=== PATIENT | male | born 1940 | race Caucasian/White ===

== ENCOUNTER → 2018-01-03 07:11 | Outpatient (CLI) | payer OTHER, SELFPAY ==
[2018-01-03 07:17] LABS: Bacteria Urine None Seen; RBC Urine None Seen (0-5/HPF); WBC Urine None Seen (0-5/HPF)
[2018-01-03 08:41] LABS: Add Manual Diff / Slide Review NO; Basophils Percent Auto 0.5 % (0-2); Eosinophils Percent Auto 4.1 % (2-4); Hemoglobin 14.4 g/dL (13.5-17.5); Lymphocytes Percent Auto 26.1 % (25-40); Mean Corpuscular HGB Conc 33.5 % (30-36); Mean Corpuscular Hemoglobin 31.6 PG (26-34); Mean Corpuscular Volume 94.3 fL (80-100); Monocytes Percent Auto 9.3 % (3-14); Neutrophils Absolute Auto 4700 /uL (3000-5900); Platelet Count 189 X10^3/uL (150-400); Red Blood Cell Count 4.56 X10^6/uL (4.5-5.9); Red Cell Distribution Width 13.3 % (11.6-14.8); White Blood Cell Count 7.8 X10^3/uL (4.5-11.0)
[2018-01-03 08:52] LABS: Alanine Aminotransferase 20 IU/L (21-72); Albumin Globulin Ratio 1.4 (1.0-2.8); Alkaline Phosphatase 58 U/L (38-126); Aspartate Aminotransferase 14 IU/L (17-59); Bilirubin Total 0.5 mg/dL (0.2-1.3); Blood Urea Nitrogen 19 mg/dL (9-20); Calcium 9.5 mg/dL (8.4-10.2); Carbon Dioxide 35 mmol/L (22-32); Chloride 102 mmol/L (98-107); Cholesterol 152 mg/dL (140-199); Estimated Glomerular Filt Rate > 60.0 mL/min (>60); Globulin 2.9 g/dL (1.7-4.1); Glucose 99 mg/dL (80-110); HDL Cholesterol 54 mg/dL (40-60); HEMOLYSIS < 15 (0-50); LDL Cholesterol Calculated 71 mg/dL (<100); Potassium 4.3 mmol/L (3.4-5.1); Sodium 142 mmol/L (137-145); Total Protein 6.9 g/dL (6.3-8.2); Triglycerides 133 mg/dL (35-150)
[2018-01-03 09:08] LABS: Hemoglobin A1C% w Est Avg Glu 6.2 % (4.0-6.0)
[2018-01-03 09:21] LABS: Appearance Urine UA CLEAR; Bilirubin Urine UA NEGATIVE (NEGATIVE); Color Urine UA YELLOW; Glucose Urine UA NEGATIVE (Normal); Ketones Urine UA NEGATIVE (NEGATIVE); Leukocyte Esterase Urine UA NEGATIVE (NEGATIVE); Nitrite Urine UA Negative (Negative); Occult Blood Urine UA NEGATIVE (Negative); Protein Urine UA NEGATIVE (Negative); Urobilinogen Urine UA 0.2 E.U./dL (0.2); pH Urine UA 6.5 (4.5-8.0)
[2018-01-03 09:27] LABS: Culture Indicated Urine Cult Not Indicated; Urine Comments Microscopic Normal
== END ==
PROVIDERS: PCP Family Medicine; Visit Provider Family Medicine
DX: E11.9 Type 2 diabetes mellitus without complications (principal); E78.5 Hyperlipidemia, unspecified
CPT/HCPCS: 36415; 80053; 80061; 81001; 83036; 84443; 85025

== ENCOUNTER → 2018-10-25 15:54 | Outpatient (CLI) | payer MEDICARE, SELFPAY ==
--- NOTE | 2018-10-25 | DI.ECHO.S_ITS ---
[place] [facility]---------+ [facility] +---------+ : : [address] : : : [place] : : : : [id number] : : : : Phone: [phone] Echocardiogram Report + + :Name: MOIRA TOVAR Study Date: 10/25/2018 Height: 68 in : :[facility] Exam Location: IS Weight: 181 lb : : Gender: Male BSA: 2.0 m2 : :: 1940 Age: 78 yrs BP: 135/53 mmHg: :Reason For Study: DIZZINESS, GIDDINESS : : Performed By: Daniel Harvey : :Referring: ALEKS PEREZ : + + Interpretation Summary Overall left ventricular systolic function is preserved with the ejection fraction visually estimated to be 55-60%. There is moderate hypokinesis in the mid posterior wall that is unchanged from the previous exam and no other wall motion abnormalities. Diastolic parameters suggest a pseudonormalization pattern, consistent with probable elevated filling pressures. There has been no significant change since the previous study. The right ventricle is mildly dilated and right ventricular systolic function is at the lower limits of normal but appears unchanged compared to the previous study. The right ventricular systolic pressure is estimated to be at least 31 mmHg based on an estimated right atrial pressure of 3 mm Hg, and is likely similar compared to the previous study. The left atrium is severely dilated and has mildly increased in size since the prior echo exam. There is mild tricuspid regurgitation and mild pulmonic regurgitation that are unchanged compared to the previous study. There is a well-seated bioprosthetic aortic valve with gradients that are within the normal range for this type of valve with a peak aortic velocity of 2.4 m/s which is identical compared to the previous study. Procedure: A two-dimensional transthoracic echocardiogram with color flow and Doppler was performed. The study quality was technically adequate. Comparison is made with the echocardiogram of 11/08/16. The patient was in normal sinus rhythm during the exam. Left Ventricle: The left ventricle is normal in size. There is normal left ventricular wall thickness. Overall left ventricular systolic function is preserved. The ejection fraction is estimated to be 55-60%. There is moderate hypokinesis in the mid posterior wall that is unchanged from the previous exam and no other wall motion abnormalities. Diastolic parameters suggest a pseudonormalization pattern, consistent with probable elevated filling pressures. There has been no significant change since the previous study. Right Ventricle: The right ventricle is mildly dilated. Right ventricular systolic function is at the lower limits of normal. This is unchanged compared to the previous study. Atria: The left atrium is severely dilated. The left atrium has mildly increased in size since the prior echo exam. Right atrial size is normal. The interatrial septum is intact with no evidence for an atrial septal defect. Mitral Valve: There is mild to moderate mitral annular calcification. There is trace mitral regurgitation. This is unchanged compared to the previous study. Aortic Valve: The aortic valve is not well visualized. There is a bioprosthetic aortic valve. The prosthetic aortic valve is well-seated. The gradients through the prosthetic aortic valve are within the normal range for this type of valve. The peak aortic velocity is 2.4 m/sec. This is identical compared to the previous study. The calculated aortic valve area is 1.4 cm2. No aortic regurgitation is present. Tricuspid Valve: The tricuspid valve is normal in structure and function. There is mild tricuspid regurgitation. This is unchanged compared to the previous study. The right ventricular systolic pressure is estimated to be at least 31 mmHg based on an estimated right atrial pressure of 3 mm Hg. This is similar compared to the previous study. Pulmonic Valve: The pulmonic valve is normal in structure and function. There is mild pulmonic regurgitation. This is unchanged compared to the previous study. Great Vessels: The aortic root is normal size. The ascending aorta could not be visualized. The aortic arch is normal in size. The pulmonary artery is normal size. The IVC is of normal diameter and collapses greater than 50% with a sniff. This suggests a low right atrial pressure of 3 mm Hg. Pericardium/ Pleura There is no pericardial effusion. There is no pleural effusion. MMode/2D Measurements & Calculations LVIDd: 5.1 cm LVOT diam: 2.0 cm LVIDs: 3.2 cm Ao root diam: 2.6 cm FS: 36.8 % Ao Arch Diam (Prox Trans): 2.9 cm EPSS: 0.45 cm IVSd: 0.96 cm LVPWd: 0.97 cm LV shepherd. diameter/BSA (cm/m^2): 2.6 LV sys. diameter/BSA (cm/m^2): 1.7 LA dimension: 5.4 cm RA long axis: 5.6 cm LA A2 area: 24.3 cm2 RA area: 18.6 cm2 LA A4 area: 27.6 cm2 RA vol: 52.8 ml LA length (vol): 5.8 cm RA : 26.9 ml/m2 LA vol: 98.0 ml IVC diam: 1.7 cm LA vol index: 50.0 ml/m2 RVD1 (basal): 4.1 cm RVD2 (mid): 4.4 cm Doppler Measurements & Calculations Ao V2 max: 238.7 cm/sec LVOT Max Raffy: 109.0 cm/sec Ao V2 mean: 180.6 cm/sec LV V1 max P.8 mmHg Ao max P.8 mmHg LV V1 VTI: 32.2 cm Ao mean P.3 mmHg CHRIS(I,D): 1.6 cm2 Ao V2 VTI: 65.4 cm CHRIS(V,D): 1.4 cm2 sev ratio: 0.49 CHRIS indexed to BSA (cm^2/m^2): 0.79 MV E max raffy: 104.9 cm/sec TR max raffy: 265.5 cm/sec MV A max raffy: 103.2 cm/sec TR max P.2 mmHg MV E/A: 1.0 PA V2 max: 87.4 cm/sec Med Peak E' Raffy: 4.6 cm/sec PA V2 mean: 63.5 cm/sec E/E' med: 22.6 PA mean P.7 mmHg Lat Peak E' Raffy: 6.1 cm/sec PA pr(Accel): 25.8 mmHg E/E' lat: 17.2 PA Accel Time: 0.12 sec E/e' average: 19.9 MV dec time: 0.24 sec SV(LVOT): 101.6 ml Reading Physician:HORTENCIA
== END ==
PROVIDERS: PCP Internal Medicine; Visit Provider Internal Medicine
DX: I07.1 Rheumatic tricuspid insufficiency (principal); I37.1 Nonrheumatic pulmonary valve insufficiency; R42 Dizziness and giddiness; R00.1 Bradycardia, unspecified; Z95.2 Presence of prosthetic heart valve
CPT/HCPCS: 93306

== ENCOUNTER → 2019-02-06 10:18 | Outpatient (CLI) | payer MEDICARE, SELFPAY ==
[2019-02-06 11:29] LABS: Hemoglobin A1C% w Est Avg Glu 6.1 % (4.0-6.0)
== END ==
PROVIDERS: PCP Internal Medicine; Visit Provider Internal Medicine
DX: E11.9 Type 2 diabetes mellitus without complications (principal)
CPT/HCPCS: 36415; 83036

== ENCOUNTER → 2019-08-14 | Outpatient (CLI) | payer MEDICARE, SELFPAY | PROVIDERS: PCP Internal Medicine; Referring Provider Internal Medicine; Visit Provider Internal Medicine ==

== ENCOUNTER → 2020-03-23 08:16 | Outpatient (CLI) | payer MEDICARE, SELFPAY ==
[2020-03-23 09:22] LABS: Hemoglobin A1C% w Est Avg Glu 6.7 % (4.0-6.0)
[2020-03-23 09:29] LABS: Alanine Aminotransferase 14 IU/L (<50); Albumin 3.9 g/dL (3.5-5.0); Albumin Globulin Ratio 1.2 (1.0-2.8); Alkaline Phosphatase 69 U/L (38-126); Aspartate Aminotransferase 20 IU/L (17-59); Bilirubin Total 0.6 mg/dL (0.2-1.3); Blood Urea Nitrogen 18 mg/dL (9-20); Calcium 9.1 mg/dL (8.4-10.2); Carbon Dioxide 31 mmol/L (22-32); Chloride 103 mmol/L (98-107); Cholesterol 152 mg/dL (140-199); Estimated Glomerular Filt Rate > 60.0 mL/min (>60); Globulin 3.2 g/dL (1.7-4.1); Glucose 125 mg/dL (80-110); HDL Cholesterol 52 mg/dL (40-60); HEMOLYSIS < 15 (0-50); LDL Cholesterol Calculated 78 mg/dL (<100); Sodium 138 mmol/L (137-145); Total Protein 7.1 g/dL (6.3-8.2); Triglycerides 108 mg/dL (35-150)
== END ==
PROVIDERS: PCP Internal Medicine; Referring Provider Internal Medicine; Visit Provider Internal Medicine
DX: E11.9 Type 2 diabetes mellitus without complications (principal); E78.2 Mixed hyperlipidemia; I25.10 Atherosclerotic heart disease of native coronary artery without angina pectoris
CPT/HCPCS: 36415; 80053; 80061; 83036

== ENCOUNTER → 2020-11-06 07:04 | Outpatient (CLI) | payer OTHER, SELFPAY ==
[2020-11-06 08:19] LABS: Hemoglobin A1C% w Est Avg Glu 6.6 % (4.0-6.0)
[2020-11-06 08:57] LABS: Alanine Aminotransferase 12 IU/L (<50); Albumin 3.7 g/dL (3.5-5.0); Albumin Globulin Ratio 1.4 (1.0-2.8); Alkaline Phosphatase 73 U/L (38-126); Aspartate Aminotransferase 21 IU/L (17-59); BUN Creatinine Ratio 15.7 (6-22); Bilirubin Total 0.5 mg/dL (0.2-1.3); Blood Urea Nitrogen 17 mg/dL (9-20); Calcium 9.7 mg/dL (8.4-10.2); Carbon Dioxide 28 mmol/L (22-32); Chloride 105 mmol/L (98-107); Cholesterol 147 mg/dL (140-199); Estimated Glomerular Filt Rate > 60.0 mL/min (>60); Globulin 2.7 g/dL (1.7-4.1); Glucose 116 mg/dL (80-110); HDL Cholesterol 55 mg/dL (40-60); HEMOLYSIS < 15 (0-50); LDL Cholesterol Calculated 73 mg/dL (<100); Potassium 4.5 mmol/L (3.4-5.1); Sodium 138 mmol/L (137-145); Total Protein 6.4 g/dL (6.3-8.2); Triglycerides 96 mg/dL (35-150)
== END ==
PROVIDERS: PCP Internal Medicine; Referring Provider Internal Medicine; Visit Provider Internal Medicine
DX: E11.9 Type 2 diabetes mellitus without complications (principal); E78.2 Mixed hyperlipidemia; I25.10 Atherosclerotic heart disease of native coronary artery without angina pectoris
CPT/HCPCS: 36415; 80053; 80061; 83036

== ENCOUNTER → 2021-03-20 14:25 | Outpatient (CLI) | payer OTHER, SELFPAY ==
[2021-03-20 15:18] LABS: COVID19 -Nasal RAPID POSITIVE (Negative)
== END ==
PROVIDERS: PCP Internal Medicine; Visit Provider Physician Assistant
DX: U07.1 COVID-19 (principal)
CPT/HCPCS: 87635

== ENCOUNTER 2021-03-25 19:55 | Inpatient (IN) | payer OTHER, SELFPAY ==
[2021-03-25] VITALS (9 sets, daily range): BP systolic 137–160; BP diastolic 62–72; PULSE 52–61; RESP 18–26; TEMP 36.6–37.4; O2SAT 92–99; BMI 28.8
[2021-03-25 20:07] LABS: Add Manual Diff / Slide Review NO; Basophils Absolute Auto 0 /uL (0-100); Basophils Percent Auto 0.3 % (0-2); Eosinophils Absolute Auto 0 /uL (0-450); Hematocrit 44.1 % (41-53); Hemoglobin 14.4 g/dL (13.5-17.5); Lymphocytes Absolute Auto 1800 /uL (1100-4500); Lymphocytes Percent Auto 27.2 % (25-40); Mean Corpuscular HGB Conc 32.8 % (30-36); Mean Corpuscular Volume 94.7 fL (80-100); Monocytes Absolute Auto 1000 /uL (0-900); Monocytes Percent Auto 14.9 % (3-14); Neutrophils Absolute Auto 3800 /uL (1500-7000); Neutrophils Percent Auto 57.6 % (50-75); Platelet Count 129 X10^3/uL (150-400); Red Blood Cell Count 4.66 X10^6/uL (4.5-5.9); Red Cell Distribution Width 13.3 % (11.6-14.8); White Blood Cell Count 6.5 X10^3/uL (4.5-11.0)
--- NOTE | 2021-03-25 20:24 | DI.RAD.S_ITS ---
PROCEDURE: XR CHEST 1V INDICATIONS: syncope, short of breath, hypoxemia, COVID+ TECHNIQUE: One view of the chest was acquired. COMPARISON: [facility], , CHEST 2 VIEW, 11/03/2016, 10:54. FINDINGS: Surgical changes and devices: Sternotomy wires and cardiac leadless pacer. Lungs and pleura: Scattered subsegmental atelectasis and/or scarring. No focal consolidation. No pleural effusion or pneumothorax. Mediastinum: Mediastinal contours appear normal. Heart size is normal. Bones and chest wall: No suspicious bony lesions. Overlying soft tissues appear unremarkable. IMPRESSION: Scattered subsegmental atelectasis and/or scarring. No focal consolidation. Dictated by: Jose Harris M.D. on 03/25/2021 at 21:13 Approved by: Jose Harris M.D. on 03/25/2021 at 21:14
[2021-03-25 20:25] LABS: HEMOLYSIS 19 (0-50)
[2021-03-25 20:26] LABS: Alanine Aminotransferase 19 IU/L (<50); Albumin 3.9 g/dL (3.5-5.0); Albumin Globulin Ratio 1.2 (1.0-2.8); Alkaline Phosphatase 57 U/L (38-126); Aspartate Aminotransferase 41 IU/L (17-59); BUN Creatinine Ratio 17.1 (6-22); Bilirubin Total 0.5 mg/dL (0.2-1.3); Blood Urea Nitrogen 19 mg/dL (9-20); Carbon Dioxide 30 mmol/L (22-32); Chloride 96 mmol/L (98-107); Creatine Kinase 71 U/L (55-170); Estimated Glomerular Filt Rate > 60.0 mL/min (>60); Globulin 3.2 g/dL (1.7-4.1); Glucose 147 mg/dL (80-110); Potassium 4.5 mmol/L (3.4-5.1); Sodium 133 mmol/L (137-145); Total Protein 7.1 g/dL (6.3-8.2)
[2021-03-25] MEDS: SODIUM CHLORIDE 0.9% 1,000 ML 1000 ML IV (20:32)
[2021-03-25 20:36] LABS: Troponin I 0.016 ng/mL (0.01-0.034)
[2021-03-25 20:38] LABS: D Dimer 860 ng/mL (<230)
[2021-03-25 20:41] LABS: NT-proBNP (BNP-Adult 18+) 484 pg/mL (<450)
--- NOTE | 2021-03-25 20:43 | ED_ITS ---
HPI - Syncope General Chief Complaint: Syncope Stated Complaint: syncope Time Seen by Provider: 03/25/21 19:59 Source: patient and EMS Mode of arrival: EMS Limitations: no limitations History of Present Illness HPI narrative: 81-year-old male former smoker with history of hypertension, hyperlipidemia and diabetes presents by EMS for evaluation of a syncopal episode this afternoon. He was diagnosed with COVID on March 19 and lives at home with family. He states he has been eating and drinking but admittedly has a decreased appetite. He was walking in the kitchen when he felt dizzy and lightheaded and collapsed to the floor. Feels weak but denies any significant shortness of breath or trouble breathing. On arrival his pulse ox was 86%. Related Data Home Medications Medication Instructions Recorded Confirmed aspirin 81 mg tablet,delayed 81 mg PO QDAY #0 10/12/16 09/21/20 release Previous Rx's Medication Instructions Recorded simvastatin 20 mg tablet 20 mg PO HS #90 tab 05/20/20 tamsulosin 0.4 mg capsule (Flomax) 0.4 mg PO QDAY #90 cap 05/20/20 Accu-Check Glucose Meter #1 ea 06/30/20 Lancets #250 each 06/30/20 metformin 500 mg tablet 500 mg PO BIDCC #180 tab 07/01/20 (Glucophage) blood sugar diagnostic (Accu-Chek #100 ea 07/08/20 Sofía Plus test strp) Allergies Allergy/AdvReac Type Severity Reaction Status Date / Time No Known Drug Allergies Allergy Verified 09/21/20 14:25 Review of Systems Review of Systems Narrative: GENERAL: See HPI HEENT: Denies sinus pain, ear pain, sore throat, difficulty swallowing, dizziness. RESPIRATORY: See HPI CARDIOVASCULAR: Denies chest pain, palpitations, orthopnea, edema, GASTROINTESTINAL: Denies nausea, vomiting, abdominal pain, diarrhea, constipation, melena. : Denies dysuria, frequency, incontinence, hematuria, urinary retention. MUSCULOSKELETAL: denies weakness, joint pain, or bony pain SKIN: Denies rash, skin lesions, or other NEUROLOGIC: Denies weakness, headache, numbness, change in speech, confusion, seizures, incoordination. PSYCHIATRIC: No concerning psychosocial issues. 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 Well-developed patient, in mild distress. HEAD: Atraumatic. Normocephalic. EYES: Pupils equal round and reactive. Extraocular motions intact. No scleral icterus. No injection or drainage. ENT: Dry mucous membranes Nose without bleeding, purulent drainage. Throat without erythema, tonsillar hypertrophy or exudate. Airway patent. NECK: Trachea midline. Non tender CARDIOVASCULAR: Regular rate and rhythm without murmurs, gallops, or rubs. RESPIRATORY: Faint crackles in bilateral bases, no significant respiratory distress GASTROINTESTINAL: Abdomen soft, non-tender, nondistended. EXTREMITIES: No edema or joint tenderness. BACK: Nontender without deformity or crepitance. No flank tenderness. NEURO: AOx3. SKIN: No rash or erythema of visible areas Initial Vital Signs Initial Vital Signs: Vital Signs Temperature 99.3 F 03/25/21 20:00 Pulse Rate 60 03/25/21 20:00 Respiratory Rate 19 03/25/21 20:00 Blood Pressure 147/66 H 03/25/21 20:00 Pulse Oximetry 92 03/25/21 20:00 Course Orders Ordered: ED Orders 03/25/21 19:30 C-Reactive Protein Quant Stat Complete Blood Count AUTO DIFF Stat Comprehensive Metabolic Panel Stat D Dimer Stat Ferritin Stat Lactate Dehydrogenase Stat NT-proBNP (BNP-Adult 18+) Stat Troponin & CK Cardiac Panel Stat 03/25/21 20:00 EKG-12 Lead Stat 03/25/21 20:24 XR chest 1V Stat 03/25/21 20:43 Respiratory Panel (Film Array) Stat 03/25/21 21:25 Lactate (Lactic Acid) Stat Acetaminophen (Acetaminophen 325 Mg Tablet) 650 mg PO Q6HR PRN PRN Reason: Fever/Mild Pain (1-3) Aspirin (Aspirin Ec 81 Mg Tablet) 81 mg PO DAILY [facility] Atorvastatin Calcium (Atorvastatin 20 Mg Tablet) 10 mg PO BEDTIME LIGIA Dexamethasone (Dexamethasone 10 Mg/Ml Vial) 6 mg IV BEDTIME LIGIA Stop: 04/03/21 21:01 Dextrose (Dextrose 50 % In Water 25 Gm/50 Ml Syringe) 25 gm IV PRN PRN PRN Reason: Hypoglycemia Enoxaparin Sodium (Enoxaparin 40 Mg/0.4 Ml Syringe) 40 mg SUBCUT DAILY [facility] Remdesivir 100 mg/ Sodium (Chloride) 250 mls @ 250 mls/hr IV BEDTIME LIGIA Stop: 04/03/21 21:59 Sodium Chloride (Normal Saline 0.9%) 1,000 mls @ 125 mls/hr IV CONT LIGIA Insulin Human Lispro (Insulin Lispro 100 Unit/Ml 3ml Vial) 0 unit SUBCUT ACHS LIGIA; Protocol Metformin HCl (Metformin Hcl 500 Mg Tablet) 500 mg PO BIDWM [facility] Naloxone HCl (Naloxone 0.4 Mg/Ml Vial) 0.2 mg IV Q2MIN PRN PRN Reason: Opiate Reversal Ondansetron HCl (Ondansetron 4 Mg/2 Ml Inj) 4 mg IV Q8HR PRN PRN Reason: Nausea And Vomiting Tamsulosin HCl (Tamsulosin 0.4 Mg Capsule) 0.4 mg PO DAILY [facility] Discontinued Medications Dexamethasone (Dexamethasone 10 Mg/Ml Vial) 6 mg IV NOW ONE Stop: 03/25/21 20:25 Last Admin: 03/25/21 21:11 Dose: 6 mg Documented by: OTILIO Sodium Chloride (Normal Saline 0.9%) 1,000 mls @ 1,000 mls/hr IV BOLUS ONE Stop: 03/25/21 20:58 Last Infusion: 03/25/21 22:05 Dose: 0 mls/hr Documented by: Admin: 03/25/21 20:32 Dose: 1,000 mls/hr Documented by: OTILIO Remdesivir 200 mg/ Sodium (Chloride) 250 mls @ 250 mls/hr IV NOW ONE Stop: 03/25/21 21:23 Last Infusion: 03/25/21 22:27 Dose: 0 mls/hr Documented by: Admin: 03/25/21 21:11 Dose: 250 mls/hr Documented by: OTILIO Vital Signs Vital signs: Vital Signs - 8 hr 03/25/21 20:00 03/25/21 20:04 03/25/21 20:30 Temperature 99.3 F Pulse Rate 60 57 L 58 L Respiratory Rate 19 21 Blood Pressure 147/66 H 147/66 H 137/63 Pulse Oximetry 92 94 96 03/25/21 21:00 Temperature Pulse Rate 58 L Respiratory Rate 21 Blood Pressure 160/72 H Pulse Oximetry 99 MDM - Syncope Lab Data Result diagrams: 03/25/21 19:30 03/25/21 19:30 Labs: Lab Results 03/25/21 03/25/21 03/25/21 Range/Units 19:30 19:30 19:30 WBC 6.5 (4.5-11.0) X10^3/uL RBC 4.66 (4.5-5.9) X10^6/uL Hgb 14.4 (13.5-17.5) g/dL Hct 44.1 (41-53) % MCV 94.7 (80-100) fL MCH 31.0 (26-34) PG MCHC 32.8 (30-36) % RDW 13.3 (11.6-14.8) % Plt Count 129 L (150-400) X10^3/uL Neut % (Auto) 57.6 (50-75) % Lymph % (Auto) 27.2 (25-40) % Hart % (Auto) 14.9 H (3-14) % Eos % (Auto) 0.0 L (2-4) % Baso % (Auto) 0.3 (0-2) % Neut # (Auto) 3800 (5473-3873) /uL Lymph # (Auto) 1800 (8618-1992) /uL Hart # (Auto) 1000 H (0-900) /uL Eos # (Auto) 0 (0-450) /uL Baso # (Auto) 0 (0-100) /uL D-Dimer (<230) ng/mL ABG pH (7.35-7.45) ABG pCO2 (35-45) mmHg ABG pO2 (80-100) mmHg ABG HCO3 (22-26) mmol/L ABG Total CO2 (21-31) mmol/L ABG O2 Saturation (95-100) % ABG Base Excess (-2-2) mmol/L FiO2 Sodium 133 L (137-145) mmol/L Potassium 4.5 (3.4-5.1) mmol/L Chloride 96 L (98-107) mmol/L Carbon Dioxide 30 (22-32) mmol/L BUN 19 (9-20) mg/dL Creatinine 1.11 (0.66-1.25) mg/dL Estimated GFR > 60.0 (>60) mL/min BUN/Creatinine Ratio 17.1 (6-22) Glucose 147 H (80-110) mg/dL Lactate (0.7-2.1) mmol/L Calcium 9.0 (8.4-10.2) mg/dL Ferritin (18-464) ng/mL Total Bilirubin 0.5 (0.2-1.3) mg/dL AST 41 (17-59) IU/L ALT 19 (<50) IU/L Alkaline Phosphatase 57 (38-126) U/L Lactate Dehydrogenase (313-618) U/L Total Creatine Kinase 71 (55-170) U/L CK-MB (CK-2) TNP CK-MB (CK-2) Rel Index TNP Troponin I 0.016 (0.01-0.034) ng/mL C-Reactive Protein (<1.0) mg/dL NT-Pro-B Natriuret Pep 484 H (<450) pg/mL Total Protein 7.1 (6.3-8.2) g/dL Albumin 3.9 (3.5-5.0) g/dL Globulin 3.2 (1.7-4.1) g/dL Albumin/Globulin Ratio 1.2 (1.0-2.8) Chlamy pneumoniae PCR (Not Detect) Adenovirus (PCR) (Not Detect) B. pertussis DNA (PCR) (Not Detecte) B.parapertussis DNA PCR (Not Detecte) Coronavirus OC43 (PCR) (Not Detect) Coronavirus HKU1 (PCR) (Not Detect) Coronavirus 229E (PCR) (Not Detect) SARS-CoV-2 (PCR) (Not Detecte) Coronavirus NL63 (PCR) (Not Detect) Human Metapneumovir PCR (Not Detect) Influenza Type A (PCR) (Not Detect) Influenza Type B (PCR) (Not Detect) M. pneumoniae (PCR) (Not Detect) Parainfluenza 1 (PCR) (Not Detect) Parainfluenza 2 (PCR) (Not Detect) Parainfluenza 3 (PCR) (Not Detect) Parainfluenza 4 (PCR) (Not Detect) RSV (PCR) (Not Detect) Entero/Rhino (PCR) (Not Detect) 03/25/21 03/25/21 03/25/21 Range/Units 19:30 19:30 20:43 WBC (4.5-11.0) X10^3/uL RBC (4.5-5.9) X10^6/uL Hgb (13.5-17.5) g/dL Hct (41-53) % MCV (80-100) fL MCH (26-34) PG MCHC (30-36) % RDW (11.6-14.8) % Plt Count (150-400) X10^3/uL Neut % (Auto) (50-75) % Lymph % (Auto) (25-40) % Hart % (Auto) (3-14) % Eos % (Auto) (2-4) % Baso % (Auto) (0-2) % Neut # (Auto) (7069-9587) /uL Lymph # (Auto) (5628-4541) /uL Hart # (Auto) (0-900) /uL Eos # (Auto) (0-450) /uL Baso # (Auto) (0-100) /uL D-Dimer 860 H (<230) ng/mL ABG pH (7.35-7.45) ABG pCO2 (35-45) mmHg ABG pO2 (80-100) mmHg ABG HCO3 (22-26) mmol/L ABG Total CO2 (21-31) mmol/L ABG O2 Saturation (95-100) % ABG Base Excess (-2-2) mmol/L FiO2 Sodium (137-145) mmol/L Potassium (3.4-5.1) mmol/L Chloride (98-107) mmol/L Carbon Dioxide (22-32) mmol/L BUN (9-20) mg/dL Creatinine (0.66-1.25) mg/dL Estimated GFR (>60) mL/min BUN/Creatinine Ratio (6-22) Glucose (80-110) mg/dL Lactate (0.7-2.1) mmol/L Calcium (8.4-10.2) mg/dL Ferritin 335 (18-464) ng/mL Total Bilirubin (0.2-1.3) mg/dL AST (17-59) IU/L ALT (<50) IU/L Alkaline Phosphatase (38-126) U/L Lactate Dehydrogenase 1056 H (313-618) U/L Total Creatine Kinase (55-170) U/L CK-MB (CK-2) CK-MB (CK-2) Rel Index Troponin I (0.01-0.034) ng/mL C-Reactive Protein 7.1 H (<1.0) mg/dL NT-Pro-B Natriuret Pep (<450) pg/mL Total Protein (6.3-8.2) g/dL Albumin (3.5-5.0) g/dL Globulin (1.7-4.1) g/dL Albumin/Globulin Ratio (1.0-2.8) Chlamy pneumoniae PCR Not detected (Not Detect) Adenovirus (PCR) Not detected (Not Detect) B. pertussis DNA (PCR) Not detected (Not Detecte) B.parapertussis DNA PCR Not detected (Not Detecte) Coronavirus OC43 (PCR) Not detected (Not Detect) Coronavirus HKU1 (PCR) Not detected (Not Detect) Coronavirus 229E (PCR) Not detected (Not Detect) SARS-CoV-2 (PCR) Detected H (Not Detecte) Coronavirus NL63 (PCR) Not detected (Not Detect) Human Metapneumovir PCR Not detected (Not Detect) Influenza Type A (PCR) Not detected (Not Detect) Influenza Type B (PCR) Not detected (Not Detect) M. pneumoniae (PCR) Not detected (Not Detect) Parainfluenza 1 (PCR) Not detected (Not Detect) Parainfluenza 2 (PCR) Not detected (Not Detect) Parainfluenza 3 (PCR) Not detected (Not Detect) Parainfluenza 4 (PCR) Not detected (Not Detect) RSV (PCR) Not detected (Not Detect) Entero/Rhino (PCR) Not detected (Not Detect) 03/25/21 03/25/21 Range/Units 21:22 21:25 WBC (4.5-11.0) X10^3/uL RBC (4.5-5.9) X10^6/uL Hgb (13.5-17.5) g/dL Hct (41-53) % MCV (80-100) fL MCH (26-34) PG MCHC (30-36) % RDW (11.6-14.8) % Plt Count (150-400) X10^3/uL Neut % (Auto) (50-75) % Lymph % (Auto) (25-40) % Hart % (Auto) (3-14) % Eos % (Auto) (2-4) % Baso % (Auto) (0-2) % Neut # (Auto) (8267-6954) /uL Lymph # (Auto) (2617-8443) /uL Hart # (Auto) (0-900) /uL Eos # (Auto) (0-450) /uL Baso # (Auto) (0-100) /uL D-Dimer (<230) ng/mL ABG pH 7.38 (7.35-7.45) ABG pCO2 44.1 (35-45) mmHg ABG pO2 103 H (80-100) mmHg ABG HCO3 26 (22-26) mmol/L ABG Total CO2 27 (21-31) mmol/L ABG O2 Saturation 98 (95-100) % ABG Base Excess 1.0 (-2-2) mmol/L FiO2 24 Sodium (137-145) mmol/L Potassium (3.4-5.1) mmol/L Chloride (98-107) mmol/L Carbon Dioxide (22-32) mmol/L BUN (9-20) mg/dL Creatinine (0.66-1.25) mg/dL Estimated GFR (>60) mL/min BUN/Creatinine Ratio (6-22) Glucose (80-110) mg/dL Lactate 1.1 (0.7-2.1) mmol/L Calcium (8.4-10.2) mg/dL Ferritin (18-464) ng/mL Total Bilirubin (0.2-1.3) mg/dL AST (17-59) IU/L ALT (<50) IU/L Alkaline Phosphatase (38-126) U/L Lactate Dehydrogenase (313-618) U/L Total Creatine Kinase (55-170) U/L CK-MB (CK-2) CK-MB (CK-2) Rel Index Troponin I (0.01-0.034) ng/mL C-Reactive Protein (<1.0) mg/dL NT-Pro-B Natriuret Pep (<450) pg/mL Total Protein (6.3-8.2) g/dL Albumin (3.5-5.0) g/dL Globulin (1.7-4.1) g/dL Albumin/Globulin Ratio (1.0-2.8) Chlamy pneumoniae PCR (Not Detect) Adenovirus (PCR) (Not Detect) B. pertussis DNA (PCR) (Not Detecte) B.parapertussis DNA PCR (Not Detecte) Coronavirus OC43 (PCR) (Not Detect) Coronavirus HKU1 (PCR) (Not Detect) Coronavirus 229E (PCR) (Not Detect) SARS-CoV-2 (PCR) (Not Detecte) Coronavirus NL63 (PCR) (Not Detect) Human Metapneumovir PCR (Not Detect) Influenza Type A (PCR) (Not Detect) Influenza Type B (PCR) (Not Detect) M. pneumoniae (PCR) (Not Detect) Parainfluenza 1 (PCR) (Not Detect) Parainfluenza 2 (PCR) (Not Detect) Parainfluenza 3 (PCR) (Not Detect) Parainfluenza 4 (PCR) (Not Detect) RSV (PCR) (Not Detect) Entero/Rhino (PCR) (Not Detect) Imaging Data Chest x-ray: Radiologist's Impression: Close Chest X-Ray (Signed) Jose Harris - 03/25/21 Echocardiogram Ultrasound (Signed) Jamal Cotto - 10/25/18 Radiology - Historical 04/12/17 Radiology - Historical 04/12/17 Radiology - Historical 11/03/16 Radiology - Historical 01/28/15 Radiology - Historical 01/27/15 Radiology - Historical 01/26/15 Launch?[address] [address] XRay Report Signed Patient: Pan Georges MR#: [id number] : 1940 Acct:[id number] Age/Sex: 81 / M Date of Service: 03/25/21 Loc: ED Accession Number: [id number] ?? Procedure: XR chest 1V Ordering Provider: Abe Allen D.O. PROCEDURE:? XR CHEST 1V ? INDICATIONS:? syncope, short of breath, hypoxemia, COVID+ ? TECHNIQUE:? One view of the chest was acquired.? ? COMPARISON:? [facility], , CHEST 2 VIEW, 11/03/2016, 10:54. ? FINDINGS:? ? Surgical changes and devices:? Sternotomy wires and cardiac leadless pacer. ? Lungs and pleura:? Scattered subsegmental atelectasis and/or scarring. No focal consolidation.? No pleural effusion or pneumothorax.? ? Mediastinum:? Mediastinal contours appear normal.? Heart size is normal.? ? Bones and chest wall:? No suspicious bony lesions.? Overlying soft tissues appear unremarkable.? ? IMPRESSION:? Scattered subsegmental atelectasis and/or scarring. No focal consolidation.? Dictated by: Jose Harris M.D. on 03/25/2021 at 21:13 ? ? Approved by: Jose Harris M.D. on 03/25/2021 at 21:14 ? [facility] Narrative Medical decision making narrative: 81-year-old male with COVID presents with worsening hypoxemia, pulse ox in the mid 80s and a new requirement of supplemental oxygen. He does not have any indication for high-flow nasal cannula. He requires hospitalization for his acute hypoxemic respiratory failure, he has been given remdesivir and Decadron. The etiology of his syn copal episode is likely orthostatic hypotension as he appears clinically dehydrated. We will continue to follow and address his symptoms and provide ongoing treatment and stabilization in the inpatient setting. Discharge Plan Departure Patient Disposition: Admitted As Inpatient Clinical Impression: COVID-19, Respiratory failure, acute, Syncope Admit Date/Time: 03/25/21 21:28 Admit Provider: Demetri Ca
[2021-03-25 20:45] LABS: C-Reactive Protein Quant 7.1 mg/dL (<1.0); Lactate Dehydrogenase 1056 U/L (313-618)
[2021-03-25] MEDS: REMDESIVIR 200 MG in SODIUM CHLORIDE 0.9% 210 ML 250 ML IV (21:11)
[2021-03-25] MEDS: DEXAMETHASONE 10 MG/ML VIAL 6 MG IV (21:11)
[2021-03-25 21:18] LABS: Ferritin 335 ng/mL (18-464)
--- NOTE | 2021-03-25 21:34 | PC.NURSE ---
PT initially in room after triage on monitor. Spo2 dropped while resting down to 86%. Pt denied sleeping at that time. instructed to deep breath and patient only came up to 88%. Place on O2 via n/c at 2L. Pt Spo2 increased. denied any shortness of breath at this time. Provider aware.
[2021-03-25 21:42] LABS: Adenovirus Not Detected (Not Detect); B. parapertussis Not Detected (Not Detecte); Bordetella pertussis Not Detected (Not Detecte); Chlamydophila pneumoniae Not Detected (Not Detect); Coronavirus 229E Not Detected (Not Detect); Coronavirus HKU1 Not Detected (Not Detect); Coronavirus NL 63 Not Detected (Not Detect); Coronavirus OC43 Not Detected (Not Detect); Human Metapneumovirus Not Detected (Not Detect); Human Rhinovirus/Enterovirus Not Detected (Not Detect); Influenza A Not Detected (Not Detect); Influenza B Not Detected (Not Detect); Mycoplasma pneumoniae Not Detected (Not Detect); Parainfluenza Virus 1 Not Detected (Not Detect); Parainfluenza Virus 2 Not Detected (Not Detect); Parainfluenza Virus 3 Not Detected (Not Detect); Parainfluenza Virus 4 Not Detected (Not Detect); Respiratory Syncytial Virus Not Detected (Not Detect); SARS- CoV-2 Detected (Not Detecte)
[2021-03-25 21:52] LABS: Lactate (Lactic Acid) 1.1 mmol/L (0.7-2.1)
[2021-03-25 23:52] LABS: PCO2 ABG 44.1 mmHg (35-45); pH ABG 7.38 (7.35-7.45)
[2021-03-25 23:53] LABS: Fractionated Inspired Oxygen 24; HCO3 ABG 26 mmol/L (22-26); Oxygen Saturation ABG 98 % (95-100); PO2 ABG 103 mmHg (80-100); TCO2 ABG 27 mmol/L (21-31)
[2021-03-26] MEDS: ATORVASTATIN 20 MG TABLET 10 MG PO ×2 (01:48→21:28)
[2021-03-26] MEDS: ASPIRIN EC 81 MG TABLET PO ×2 (01:49→08:21)
[2021-03-26] MEDS: SODIUM CHLORIDE 0.9% 1,000 ML 125 ML IV ×2 (01:50→17:14)
[2021-03-26 03:38] VITALS: BP 120/54; PULSE 46; RESP 18; TEMP 36.4; O2SAT 94
[2021-03-26 05:29] LABS: INR 1.2 (0.9-1.3); Prothrombin Time 13.7 SECONDS (10.1-12.7)
[2021-03-26 05:32] LABS: D Dimer 586 ng/mL (<230)
[2021-03-26 05:34] LABS: Alanine Aminotransferase 20 IU/L (<50); Albumin 3.1 g/dL (3.5-5.0); Albumin Globulin Ratio 1.1 (1.0-2.8); Alkaline Phosphatase 51 U/L (38-126); Aspartate Aminotransferase 39 IU/L (17-59); BUN Creatinine Ratio 24.1 (6-22); Bilirubin Total 0.3 mg/dL (0.2-1.3); Blood Urea Nitrogen 19 mg/dL (9-20); Carbon Dioxide 26 mmol/L (22-32); Chloride 100 mmol/L (98-107); Estimated Glomerular Filt Rate > 60.0 mL/min (>60); Globulin 2.8 g/dL (1.7-4.1); Glucose 238 mg/dL (80-110); HEMOLYSIS < 15 (0-50); Potassium 4.5 mmol/L (3.4-5.1); Sodium 132 mmol/L (137-145); Total Protein 5.9 g/dL (6.3-8.2)
[2021-03-26 06:07] LABS: Add Manual Diff / Slide Review NO; Basophils Absolute Auto 0 /uL (0-100); Basophils Percent Auto 0.1 % (0-2); Eosinophils Absolute Auto 0 /uL (0-450); Hematocrit 39.1 % (41-53); Hemoglobin 12.8 g/dL (13.5-17.5); Lymphocytes Absolute Auto 500 /uL (1100-4500); Lymphocytes Percent Auto 11.1 % (25-40); Mean Corpuscular HGB Conc 32.7 % (30-36); Mean Corpuscular Hemoglobin 31.3 PG (26-34); Mean Corpuscular Volume 95.9 fL (80-100); Monocytes Absolute Auto 300 /uL (0-900); Monocytes Percent Auto 6.8 % (3-14); Neutrophils Absolute Auto 3400 /uL (1500-7000); Platelet Count 111 X10^3/uL (150-400); Red Blood Cell Count 4.08 X10^6/uL (4.5-5.9); Red Cell Distribution Width 13.5 % (11.6-14.8); White Blood Cell Count 4.1 X10^3/uL (4.5-11.0)
--- NOTE | 2021-03-26 06:15 | PC.NURSE ---
Patient in Rm 211 says he doesn't have to urinate now, alittle later he says
--- NOTE | 2021-03-26 07:00 | PM.HP.1 ---
History of Present Illness History of Present Illness Date Patient Seen: 03/26/21 Time Patient Seen: 07:00 Chief complaint: syncope Narrative: 81-year-old male who was diagnosed with COVID on the 20 of March. He has been at home and without severe symptoms. He is unvaccinated for reasons that he cannot articulate to me Patient presented to the [facility] Emergency Department after a syncopal spell at home. Apparently patient felt dizzy and lightheaded and collapsed on the floor of his kitchen. He has been feeling weak and probably had limited oral intake due to his viral infection. EMS was summoned and they found him to be both orthostatic and hypoxic on room air In the ER he was evaluated given some IV fluids placed on oxygen. No evidence of anything beyond the presumed COVID induced pneumonia and acute respiratory failure. Given his age and comorbidities and hypoxia he was admitted to the hospital for ongoing therapy for his COVID pneumonia. 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) Hx of hernia repair (Unknown) Family & Social History Social History: household members spouse,family,children Prior Living Arrangements House Safety & Behavioral: Feels Safe in Current Yes Environment Been Physically Hurt or No Threatened By a Person Suicidal Ideation Description None Suicide Plan Description No Plan Tobacco & Substance use: Tobacco type cigarettes Smoking Status Former smoker alcohol intake current alcohol intake frequency a few times a week Substance Use Type does not use Meds Home Medications and Allergies Home Medications Medication Instructions Recorded Confirmed Type aspirin 81 mg tablet,delayed 81 mg PO QDAY #0 10/12/16 09/21/20 History release simvastatin 20 mg tablet 20 mg PO HS #90 tab 05/20/20 09/21/20 Rx tamsulosin 0.4 mg capsule (Flomax) 0.4 mg PO QDAY #90 cap 05/20/20 09/21/20 Rx Accu-Check Glucose Meter #1 ea 06/30/20 09/21/20 Rx Lancets #250 each 06/30/20 09/21/20 Rx metformin 500 mg tablet 500 mg PO BIDCC #180 tab 07/01/20 09/21/20 Rx (Glucophage) blood sugar diagnostic (Accu-Chek #100 ea 07/08/20 09/21/20 Rx Sofía Plus test strp) Allergies Allergy/AdvReac Type Severity Reaction Status Date / Time No Known Drug Allergies Allergy Verified 09/21/20 14:25 Review of Systems Constitutional Constitutional: Denies excessive sweating, Denies fever(s), Denies headache(s), Reports weakness, Denies weight gain and Denies weight loss Eyes Eyes: Denies change in vision, Denies itchy eyes, Denies loss of vision and Denies other visual disturbances ENT Ears, Nose, Mouth, and Throat: No change in voice, No dysphagia, No dizziness, No otalgia, No headache(s), No hoarseness, No lip swelling, No neck pain, No sore throat, No throat swelling and No tongue swelling Cardiovascular Cardiovascular: Denies chest pain, Denies syncope, Denies rapid heart rate, Denies irregular heart rhythm, Denies palpitations, Denies dyspnea, Denies dyspnea on exertion and Denies slow heart rate Respiratory Respiratory: Denies chest congestion, Denies cough, Denies hemoptysis, Denies dyspnea, Denies dyspnea on exertion, Denies stridor and Denies wheezing Gastrointestinal Gastrointestinal: Denies abdominal pain, Denies bloating, Denies change in bowel habits, Denies change in stool character, Denies dysphagia, Denies nausea, Denies vomiting and Denies hematemesis Genitourinary Genitourinary: Denies hematuria, Denies difficulty urinating and Denies urinary frequency Musculoskeletal Musculoskeletal: Denies neck pain Neurologic Neurologic: Denies dizziness, Denies syncope, Denies headache(s), Denies loss of vision and Reports weakness Endocrine Endocrine: Denies excessive sweating and Denies palpitations Allergic/Immunologic Allergic/Immunologic: Denies itchy eyes, Denies lip swelling, Denies throat swelling, Denies tongue swelling and Denies wheezing Exam Vital Signs (past 8 hours): - 03/26/21 03:38 Temperature 97.6 F Pulse Rate 46 L Respiratory Rate 18 Blood Pressure 120/54 L Pulse Oximetry 94 Oxygen Delivery Method Nasal Cannula Oxygen Flow Rate 1 Narrative Exam Narrative: Elderly male in no obvious distress lying in hospital bed HEENT-unremarkable Neck-no bruits Lungs-Clear maybe scattered crackles at the bases this seem to clear with deeper inspiration Heart-regular rate and rhythm Abdomen-benign Neuro-alert oriented x4 recognizes me in moves all 4 extremities gait not tested Objective Labs Result Diagrams: 03/26/21 05:00 03/26/21 05:00 Labs: Laboratory Results - last 24 hr 03/25/21 03/25/21 03/25/21 19:30 19:30 19:30 WBC 6.5 RBC 4.66 Hgb 14.4 Hct 44.1 MCV 94.7 MCH 31.0 MCHC 32.8 RDW 13.3 Plt Count 129 L Neut % (Auto) 57.6 Lymph % (Auto) 27.2 [place] % (Auto) 14.9 H Eos % (Auto) 0.0 L Baso % (Auto) 0.3 Neut # (Auto) 3800 Lymph # (Auto) 1800 [place] # (Auto) 1000 H Eos # (Auto) 0 Baso # (Auto) 0 PT INR D-Dimer ABG pH ABG pCO2 ABG pO2 ABG HCO3 ABG Total CO2 ABG O2 Saturation ABG Base Excess FiO2 Sodium 133 L Potassium 4.5 Chloride 96 L Carbon Dioxide 30 BUN 19 Creatinine 1.11 Estimated GFR > 60.0 BUN/Creatinine Ratio 17.1 Glucose 147 H Lactate Calcium 9.0 Ferritin Total Bilirubin 0.5 AST 41 ALT 19 Alkaline Phosphatase 57 Lactate Dehydrogenase Total Creatine Kinase 71 CK-MB (CK-2) TNP CK-MB (CK-2) Rel Index TNP Troponin I 0.016 C-Reactive Protein NT-Pro-B Natriuret Pep 484 H Total Protein 7.1 Albumin 3.9 Globulin 3.2 Albumin/Globulin Ratio 1.2 Chlamy pneumoniae PCR Adenovirus (PCR) B. pertussis DNA (PCR) B.parapertussis DNA PCR Coronavirus OC43 (PCR) Coronavirus HKU1 (PCR) Coronavirus 229E (PCR) SARS-CoV-2 (PCR) Coronavirus NL63 (PCR) Human Metapneumovir PCR Influenza Type A (PCR) Influenza Type B (PCR) M. pneumoniae (PCR) Parainfluenza 1 (PCR) Parainfluenza 2 (PCR) Parainfluenza 3 (PCR) Parainfluenza 4 (PCR) RSV (PCR) Entero/Rhino (PCR) 03/25/21 03/25/21 03/25/21 19:30 19:30 20:43 WBC RBC Hgb Hct MCV MCH MCHC RDW Plt Count Neut % (Auto) Lymph % (Auto) [place] % (Auto) Eos % (Auto) Baso % (Auto) Neut # (Auto) Lymph # (Auto) [place] # (Auto) Eos # (Auto) Baso # (Auto) PT INR D-Dimer 860 H ABG pH ABG pCO2 ABG pO2 ABG HCO3 ABG Total CO2 ABG O2 Saturation ABG Base Excess FiO2 Sodium Potassium Chloride Carbon Dioxide BUN Creatinine Estimated GFR BUN/Creatinine Ratio Glucose Lactate Calcium Ferritin 335 Total Bilirubin AST ALT Alkaline Phosphatase Lactate Dehydrogenase 1056 H Total Creatine Kinase CK-MB (CK-2) CK-MB (CK-2) Rel Index Troponin I C-Reactive Protein 7.1 H NT-Pro-B Natriuret Pep Total Protein Albumin Globulin Albumin/Globulin Ratio Chlamy pneumoniae PCR Not detected Adenovirus (PCR) Not detected B. pertussis DNA (PCR) Not detected B.parapertussis DNA PCR Not detected Coronavirus OC43 (PCR) Not detected Coronavirus HKU1 (PCR) Not detected Coronavirus 229E (PCR) Not detected SARS-CoV-2 (PCR) Detected H Coronavirus NL63 (PCR) Not detected Human Metapneumovir PCR Not detected Influenza Type A (PCR) Not detected Influenza Type B (PCR) Not detected M. pneumoniae (PCR) Not detected Parainfluenza 1 (PCR) Not detected Parainfluenza 2 (PCR) Not detected Parainfluenza 3 (PCR) Not detected Parainfluenza 4 (PCR) Not detected RSV (PCR) Not detected Entero/Rhino (PCR) Not detected 03/25/21 03/25/21 03/26/21 21:22 21:25 05:00 WBC 4.1 L RBC 4.08 L Hgb 12.8 L Hct 39.1 L MCV 95.9 MCH 31.3 MCHC 32.7 RDW 13.5 Plt Count 111 L Neut % (Auto) 82.0 H D Lymph % (Auto) 11.1 L [place] % (Auto) 6.8 Eos % (Auto) 0.0 L Baso % (Auto) 0.1 Neut # (Auto) 3400 Lymph # (Auto) 500 L [place] # (Auto) 300 Eos # (Auto) 0 Baso # (Auto) 0 PT INR D-Dimer ABG pH 7.38 ABG pCO2 44.1 ABG pO2 103 H ABG HCO3 26 ABG Total CO2 27 ABG O2 Saturation 98 ABG Base Excess 1.0 FiO2 24 Sodium Potassium Chloride Carbon Dioxide BUN Creatinine Estimated GFR BUN/Creatinine Ratio Glucose Lactate 1.1 Calcium Ferritin Total Bilirubin AST ALT Alkaline Phosphatase Lactate Dehydrogenase Total Creatine Kinase CK-MB (CK-2) CK-MB (CK-2) Rel Index Troponin I C-Reactive Protein NT-Pro-B Natriuret Pep Total Protein Albumin Globulin Albumin/Globulin Ratio Chlamy pneumoniae PCR Adenovirus (PCR) B. pertussis DNA (PCR) B.parapertussis DNA PCR Coronavirus OC43 (PCR) Coronavirus HKU1 (PCR) Coronavirus 229E (PCR) SARS-CoV-2 (PCR) Coronavirus NL63 (PCR) Human Metapneumovir PCR Influenza Type A (PCR) Influenza Type B (PCR) M. pneumoniae (PCR) Parainfluenza 1 (PCR) Parainfluenza 2 (PCR) Parainfluenza 3 (PCR) Parainfluenza 4 (PCR) RSV (PCR) Entero/Rhino (PCR) 03/26/21 03/26/21 05:00 05:00 WBC RBC Hgb Hct MCV MCH MCHC RDW Plt Count Neut % (Auto) Lymph % (Auto) [place] % (Auto) Eos % (Auto) Baso % (Auto) Neut # (Auto) Lymph # (Auto) [place] # (Auto) Eos # (Auto) Baso # (Auto) PT 13.7 H INR 1.2 D-Dimer 586 H ABG pH ABG pCO2 ABG pO2 ABG HCO3 ABG Total CO2 ABG O2 Saturation ABG Base Excess FiO2 Sodium 132 L Potassium 4.5 Chloride 100 Carbon Dioxide 26 BUN 19 Creatinine 0.79 Estimated GFR > 60.0 BUN/Creatinine Ratio 24.1 H Glucose 238 H Lactate Calcium 8.0 L Ferritin Total Bilirubin 0.3 AST 39 ALT 20 Alkaline Phosphatase 51 Lactate Dehydrogenase Total Creatine Kinase CK-MB (CK-2) CK-MB (CK-2) Rel Index Troponin I C-Reactive Protein NT-Pro-B Natriuret Pep Total Protein 5.9 L Albumin 3.1 L Globulin 2.8 Albumin/Globulin Ratio 1.1 Chlamy pneumoniae PCR Adenovirus (PCR) B. pertussis DNA (PCR) B.parapertussis DNA PCR Coronavirus OC43 (PCR) Coronavirus HKU1 (PCR) Coronavirus 229E (PCR) SARS-CoV-2 (PCR) Coronavirus NL63 (PCR) Human Metapneumovir PCR Influenza Type A (PCR) Influenza Type B (PCR) M. pneumoniae (PCR) Parainfluenza 1 (PCR) Parainfluenza 2 (PCR) Parainfluenza 3 (PCR) Parainfluenza 4 (PCR) RSV (PCR) Entero/Rhino (PCR) Assessment & Plan Assessment & Plan narrative: 1. Acute respiratory failure-secondary to COVID-19 pneumonia. Continue with oxygen replacement therapy as necessary to maintain oxygen saturations. 2. COVID-19 pneumonia-patient with hypoxia and multiple risk factors. He will continue a course of IV dexamethasone and remdesivir. Continue supportive therapy otherwise. Continue with usual droplet and respiratory precautions for COVID-19 3. Diabetes-continue patient's usual meds and follow his fingerstick blood sugars and use insulin as necessary for hyperglycemia specially in the setting of IV steroids 4. Coronary disease-stable no evidence of active disease at this time continue usual meds 5. Aortic valve stenosis-no evidence of issues with his aortic valve. May need to be somewhat cautious regarding fluid volume 6. Dehydration/volume depletion-continue with IV fluids for now 7. VTE prophylaxis-patient at risk of course because of his age and comorbidities but also his COVID-19 infection. Patient will have Lovenox 40 mg subQ as prophylaxis 8. Code status-patient should be full code for the purposes this hospitalization Overall patient clearly deserves inpatient hospitalization given the nature of his illness with hypoxia in the setting of COVID-19 pneumonia. He failed outpatient treatment as become hypoxic etcetera. He will be in the hospital greater than 48 hours including 2 separate midnights Time Spent With Patient Critical Care time: I spent a total of [] minutes of critical care time on this patient's care today; this time is exclusive of procedural time. Quality VTE Deep Vein Thrombosis/Pulmonary Embolism Present on Admission: No
--- NOTE | 2021-03-26 07:04 | PC.NURSE ---
new admit from ED: patient is a/o, denies pain/discomfort. UL congestion, NPC. spo2 95% 2lpm via NC. no open skin issues, skin is pale. tolerating IVF: NS @ 125. no syncope, urinal at bedside. encouraged to turn and change position. pacer. oriented to room and call light.
[2021-03-26 07:55] VITALS: BP 129/58; PULSE 42; RESP 16; TEMP 36.4; O2SAT 94
[2021-03-26] MEDS: ENOXAPARIN 40 MG/0.4 ML SYRINGE SUBCUT (08:21)
[2021-03-26] MEDS: INSULIN LISPRO 100 UNIT/ML 3ML VIAL SUBCUT ×3 (08:21→17:14)
[2021-03-26] MEDS: METFORMIN HCL 500 MG TABLET PO ×2 (08:21→17:14)
[2021-03-26] MEDS: TAMSULOSIN 0.4 MG CAPSULE PO (08:21)
[2021-03-26 09:12] VITALS: O2SAT 93
--- NOTE | 2021-03-26 10:27 | PC.NURSE ---
Addendum entered by Ioana Plaza R.N. 03/26/21 16:15: Patient is comfortable in bed, he did void 100cc earlier. Encouraged to drink more water and he states that he is going to try and void again. Will eat dinner at 1700. Voices no complaints. Addendum entered by Ioana Plaza R.N. 03/26/21 14:20: Patients blood sugar 188 at lunch, 1u of insulin given. His iv came out, float RN started a new one. IVF infusing. Patient had a large bowel movement and voided 100cc. He is resting comfortably. Original Note: Patient is alert and oriented x3, he ate breakfast in bed as he is weak. Patient has a wet cough, lungs sounds with crackles to r.side and decreased bases. Patient has not voided yet, encouraged to drink more water. If no void will call Dr. Ca and let him know, he is already aware. Resting now.
[2021-03-26 17:00] VITALS: BP 121/59; PULSE 42; RESP 16; TEMP 36.2; O2SAT 95
[2021-03-26 18:08] VITALS: O2SAT 95
[2021-03-26 20:07] VITALS: O2SAT 92
[2021-03-26] MEDS: DEXAMETHASONE 10 MG/ML VIAL 6 MG IV (21:29)
[2021-03-27 01:22] VITALS: BP 113/56; PULSE 74; RESP 20; TEMP 36; O2SAT 96
[2021-03-27] MEDS: SODIUM CHLORIDE 0.9% 1,000 ML 125 ML IV (02:28)
--- NOTE | 2021-03-27 05:37 | PC.NURSE ---
straight cath ordered after bladder scan showed 601mL retention. procedure performed resulting in 675mL output; clear and nahun. patient tolerated well, now resting comfortably.
[2021-03-27 06:41] LABS: Basophils Absolute Auto 0 /uL (0-100); Basophils Percent Auto 0.2 % (0-2); Eosinophils Absolute Auto 0 /uL (0-450); Hematocrit 41.9 % (41-53); Hemoglobin 13.8 g/dL (13.5-17.5); Lymphocytes Absolute Auto 400 /uL (1100-4500); Lymphocytes Percent Auto 4.5 % (25-40); Mean Corpuscular Hemoglobin 31.4 PG (26-34); Mean Corpuscular Volume 95.2 fL (80-100); Monocytes Absolute Auto 800 /uL (0-900); Monocytes Percent Auto 8.7 % (3-14); Neutrophils Absolute Auto 8400 /uL (1500-7000); Neutrophils Percent Auto 86.6 % (50-75); Platelet Count 135 X10^3/uL (150-400); Red Cell Distribution Width 13.4 % (11.6-14.8); White Blood Cell Count 9.7 X10^3/uL (4.5-11.0)
[2021-03-27 06:46] LABS: INR 1.5 (0.9-1.3); Prothrombin Time 16.4 SECONDS (10.1-12.7)
[2021-03-27 06:49] LABS: D Dimer 427 ng/mL (<230)
[2021-03-27 06:51] LABS: Alanine Aminotransferase 20 IU/L (<50); Albumin 2.9 g/dL (3.5-5.0); Albumin Globulin Ratio 1.1 (1.0-2.8); Alkaline Phosphatase 51 U/L (38-126); Aspartate Aminotransferase 30 IU/L (17-59); Bilirubin Total 0.3 mg/dL (0.2-1.3); Blood Urea Nitrogen 20 mg/dL (9-20); Calcium 7.8 mg/dL (8.4-10.2); Carbon Dioxide 23 mmol/L (22-32); Chloride 101 mmol/L (98-107); Estimated Glomerular Filt Rate > 60.0 mL/min (>60); Globulin 2.7 g/dL (1.7-4.1); Glucose 185 mg/dL (80-110); HEMOLYSIS < 15 (0-50); Potassium 4.6 mmol/L (3.4-5.1); Sodium 132 mmol/L (137-145); Total Protein 5.6 g/dL (6.3-8.2)
[2021-03-27 07:02] LABS: Add Manual Diff / Slide Review SLIDE REVIEW; RBC Morphology Normal Morphology
[2021-03-27 07:03] LABS: Platelet Estimate Decreased on smear
--- NOTE | 2021-03-27 08:41 | PM.PN.1 ---
Subjective Subjective Date Patient Seen: 03/27/21 Time Patient Seen: 08:42 Interval history: Patient did okay last night. Requiring oxygen on and off. Vital signs have been stable. He is feeling quite weak. Does not have much of an appetite. Refused remdesivir last night as he said he her there was bad stuff in it. Had some urinary retention last night. In out Talley catheter was placed. Urinating well. IV fluids have been decreased. Intermittent cough which she says is driving him crazy. Exam Vital Signs (past 8 hours): - 03/27/21 01:22 Temperature 96.8 F L Pulse Rate 74 Respiratory Rate 20 Blood Pressure 113/56 L Pulse Oximetry 96 Oxygen Delivery Method Nasal Cannula Oxygen Flow Rate 0.5 Narrative Exam Narrative: Gen.: Alert intermittent coughing mild increased work of breathing HEENT: Pupils equal round and reactive or mucosa is moist neck is supple Cardio: S1-S2 regular rate and rhythm Respiratory: Respiratory mild increased work of breathing. Lungs are clear Abdomen: Soft nontender no rebound or guarding no liver spleen enlargement no appreciable hernias Extremities: Warm dry perfused Neurologic: Grossly intact. Objective Labs Result Diagrams: 03/27/21 06:22 03/27/21 06:22 Labs: Laboratory Results - last 24 hr 03/27/21 03/27/21 03/27/21 06:22 06:22 06:22 WBC 9.7 D RBC 4.40 L Hgb 13.8 Hct 41.9 MCV 95.2 MCH 31.4 MCHC 33.0 RDW 13.4 Plt Count 135 L Neut % (Auto) 86.6 H Lymph % (Auto) 4.5 L Glynn % (Auto) 8.7 Eos % (Auto) 0.0 L Baso % (Auto) 0.2 Neut # (Auto) 8400 H Lymph # (Auto) 400 L [place]nn # (Auto) 800 Eos # (Auto) 0 Baso # (Auto) 0 Platelet Estimate Decreased on smear Plt Morphology Comment RBC Morphology Normal morphology PT 16.4 H INR 1.5 H D-Dimer 427 H Sodium 132 L Potassium 4.6 Chloride 101 Carbon Dioxide 23 BUN 20 Creatinine 0.74 Estimated GFR > 60.0 BUN/Creatinine Ratio 27.0 H Glucose 185 H Calcium 7.8 L Total Bilirubin 0.3 AST 30 ALT 20 Alkaline Phosphatase 51 Total Protein 5.6 L Albumin 2.9 L Globulin 2.7 Albumin/Globulin Ratio 1.1 [facility] Medical History Aortic valve stenosis Coronary artery disease COVID-19 Diabetes History of GI bleed (08/2011) Hx of small bowel obstruction (01/2015) Mixed hyperlipidemia Surgical History 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 Continue with oxygen and steroids. Patient has concerns about remdesivir. He refuse medication last night continue to educate patient. COVID-19 pneumonia-patient refusing typical treatment per protocol. Continue with education. Agree to the steroids. Provide incentive spirometry. Cough suppressants as needed. Acute urinary retention. Requiring in and out catheterization. Stop IV fluids. Continue to monitor in's an out's. Start Flomax. Diabetes-blood sugars look pretty good. Continue to monitor closely due to the IV steroids. Adjust medication as needed. Coronary disease-chronic and stable. Aortic valve stenosis-chronic stable. Decreased and stopped IV fluid today. Dehydration/volume depletion-resolved stop IV fluids. VTE prophylaxis-Lovenox Code status-patient should be full code Time Spent With Patient Critical Care time: I spent a total of [] minutes of critical care time on this patient's care today; this time is exclusive of procedural time. Quality VTE Deep Vein Thrombosis/Pulmonary Embolism Present on Admission: No
[2021-03-27 08:50] VITALS: BP 146/68; PULSE 65; RESP 16; TEMP 36.5; O2SAT 93
[2021-03-27] MEDS: INSULIN LISPRO 100 UNIT/ML 3ML VIAL SUBCUT ×3 (09:31→17:18)
[2021-03-27] MEDS: ENOXAPARIN 40 MG/0.4 ML SYRINGE SUBCUT (09:31)
[2021-03-27] MEDS: TAMSULOSIN 0.4 MG CAPSULE PO (09:31)
[2021-03-27] MEDS: METFORMIN HCL 500 MG TABLET PO ×2 (09:31→17:18)
[2021-03-27] MEDS: ASPIRIN EC 81 MG TABLET PO (09:31)
[2021-03-27 09:35] LABS: Acinetobacter baumannii Not Detected (Not Detect); Candida albicans Not Detected (Not Detect); Candida glabrata Not Detected (Not Detect); Candida krusei Not Detected (Not Detect); Candida parapsilosis Not Detected (Not Detect); Candida tropicalis Not Detected (Not Detect); E. coli Not Detected (Not Detect); Enterobacter cloacae complex Not Detected (Not Detect); Enterobacteriaceae species Not Detected (Not Detect); Enterococcus species Not Detected (Not Detect); Haemophilus influenzae Not Detected (Not Detect); Listeria monocytogenes Not Detected (Not Detect); Neisseria meningitidis Not Detected (Not Detect); Proteus species Not Detected (Not Detect); Pseudomonas aeruginosa Not Detected (Not Detect); Serratia marcescens Not Detected (Not Detect); Staphylococcus species Not Detected (Not Detect); Streptococcus agalactiae (Gr B Not Detected (Not Detect); Streptococcus pneumonia Not Detected (Not Detect); Streptococcus pyogenes (Gr A) Not Detected (Not Detect); Streptococcus species Not Detected (Not Detect)
--- NOTE | 2021-03-27 11:13 | PC.NURSE ---
Addendum entered by Ioana Plaza R.N. 03/27/21 13:44: 1300-Patient is tolerating pope catheter well, he is resting and denies any pain. Addendum entered by Ioana Plaza R.N. 03/27/21 12:38: Lab called and states that one set of blood culture bottles grew gram + cocci but they state it might be contaminated. called and patient got another set of blood cultures, he now has a pope catheter that is putting out yellow urine around 300cc. He bladder scanned for 493. Patient states that he feels some relief and just wants to rest instead of eating his lunch right now. This is in his room when he is ready to eat. Original Note: Patient has a moist and wet cough. He has crackles to both upper lobes and decreased bases. BS 175 and patient given 1u of insulin. He is a one person assist to stand and ambulate. 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
[2021-03-27 13:33] VITALS: O2SAT 94
[2021-03-27 16:40] VITALS: BP 142/61; PULSE 66; RESP 16; TEMP 36.7; O2SAT 94
[2021-03-27 17:12] VITALS: O2SAT 95
[2021-03-27 19:40] VITALS: O2SAT 98
[2021-03-27] MEDS: ATORVASTATIN 20 MG TABLET 10 MG PO (21:11)
[2021-03-27] MEDS: DEXAMETHASONE 10 MG/ML VIAL 6 MG IV (21:11)
[2021-03-28 01:00] VITALS: BP 152/74; PULSE 63; RESP 18; TEMP 37.1; O2SAT 95
[2021-03-28 06:33] LABS: Basophils Absolute Auto 0 /uL (0-100); Eosinophils Absolute Auto 0 /uL (0-450); Hematocrit 42.7 % (41-53); Lymphocytes Absolute Auto 500 /uL (1100-4500); Lymphocytes Percent Auto 4.2 % (25-40); Mean Corpuscular HGB Conc 32.8 % (30-36); Mean Corpuscular Hemoglobin 30.7 PG (26-34); Mean Corpuscular Volume 93.8 fL (80-100); Monocytes Absolute Auto 700 /uL (0-900); Neutrophils Absolute Auto 10000 /uL (1500-7000); Neutrophils Percent Auto 89.8 % (50-75); Platelet Count 189 X10^3/uL (150-400); Red Blood Cell Count 4.55 X10^6/uL (4.5-5.9); Red Cell Distribution Width 13.1 % (11.6-14.8); White Blood Cell Count 11.1 X10^3/uL (4.5-11.0)
[2021-03-28 06:35] LABS: INR 1.4 (0.9-1.3); Prothrombin Time 15.5 SECONDS (10.1-12.7)
[2021-03-28 06:37] LABS: Add Manual Diff / Slide Review SLIDE REVIEW
[2021-03-28 06:38] LABS: D Dimer 350 ng/mL (<230)
[2021-03-28 06:40] LABS: Alanine Aminotransferase 19 IU/L (<50); Albumin 2.9 g/dL (3.5-5.0); Alkaline Phosphatase 53 U/L (38-126); Aspartate Aminotransferase 27 IU/L (17-59); Bilirubin Total 0.4 mg/dL (0.2-1.3); Blood Urea Nitrogen 18 mg/dL (9-20); Carbon Dioxide 26 mmol/L (22-32); Chloride 100 mmol/L (98-107); Estimated Glomerular Filt Rate > 60.0 mL/min (>60); Globulin 2.8 g/dL (1.7-4.1); Glucose 211 mg/dL (80-110); HEMOLYSIS < 15 (0-50); Potassium 4.4 mmol/L (3.4-5.1); Sodium 130 mmol/L (137-145); Total Protein 5.7 g/dL (6.3-8.2)
[2021-03-28 06:55] LABS: RBC Morphology Normal Morphology
[2021-03-28 08:05] VITALS: BP 133/78; PULSE 72; RESP 16; TEMP 36.9; O2SAT 90
[2021-03-28 09:00] VITALS: O2SAT 92
[2021-03-28] MEDS: INSULIN LISPRO 100 UNIT/ML 3ML VIAL SUBCUT ×3 (09:01→16:59)
[2021-03-28] MEDS: TAMSULOSIN 0.4 MG CAPSULE PO (09:03)
[2021-03-28] MEDS: METFORMIN HCL 500 MG TABLET PO ×2 (09:03→16:59)
[2021-03-28] MEDS: ENOXAPARIN 40 MG/0.4 ML SYRINGE SUBCUT (09:03)
[2021-03-28] MEDS: ASPIRIN EC 81 MG TABLET PO (09:03)
--- NOTE | 2021-03-28 09:40 | PC.NURSE ---
Addendum entered by Ioana Plaza R.N. 03/28/21 16:05: 1600- Patient has coughed minimally today, he is coughing up gannon colored sputum. is aware. Resting comfortably and getting dinner soon. Patient had a bowel movement and is feeling better today then yesterday when talking with him. Addendum entered by Ioana Plaza R.N. 03/28/21 10:45: 1045- Patient is resting comfortably, he is coughing less than yesterday. Voices no needs at this time. Original Note: Patient is coughing up gannon colored sputum. Will let Doctor know when he does rounds today. Patient has crackles to upper and lower bases and decreased. His appetite for breakfast was only 10% and he is drinking water well. Up with one person assist and walker to use the bathroom. Patient has a pope catheter and is putting out yellow urine. He voices no discomfort at this time.
--- NOTE | 2021-03-28 10:57 | P.PN_ITS ---
Subjective Subjective Date Patient Seen: 03/28/21 Time Patient Seen: 10:57 Interval history: Patient seen and evaluated this morning discussed care with nursing staff. Patient doing well. Had to replace his urinary catheter yesterday still having difficulty with the urination and significant obstruction. Patient on Flomax. No previous history of you urinary obstruction but does have BPH. Afebrile. Still complaining of an annoying cough. Requiring small amounts of oxygen. Has been out of bed and ambulated. Still feeling kind of weak. Tolerating diet but decreased. Says he does feel better than yesterday. Exam Vital Signs (past 8 hours): - 03/28/21 08:05 Temperature 98.5 F Pulse Rate 72 Respiratory Rate 16 Blood Pressure 133/78 Pulse Oximetry 90 L Oxygen Delivery Method Nasal Cannula Oxygen Flow Rate 0.5 Narrative Exam Narrative: Gen.: Alert good historian HEENT: Pupils equal round and reactive nasal cannula in pace oral mucosa is moist neck is supple Cardio: S1-S2 regular rate and rhythm systolic murmur present 2/3 Respiratory: Respiratory normal respiratory effort. Intermittent coughing no crackles wheezes or rhonchi Abdomen: Soft nontender Extremities: Warm dry perfused Objective Labs Result Diagrams: 03/28/21 06:05 03/28/21 06:05 Labs: Laboratory Results - last 24 hr 03/28/21 03/28/21 03/28/21 06:05 06:05 06:05 WBC 11.1 H RBC 4.55 Hgb 14.0 Hct 42.7 MCV 93.8 MCH 30.7 MCHC 32.8 RDW 13.1 Plt Count 189 Neut % (Auto) 89.8 H Lymph % (Auto) 4.2 L [place] % (Auto) 6.0 Eos % (Auto) 0.0 L Baso % (Auto) 0.0 Neut # (Auto) 91545 H Lymph # (Auto) 500 L [place] # (Auto) 700 Eos # (Auto) 0 Baso # (Auto) 0 Plt Morphology Comment . 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 Tolerating more diet vital signs are stable with a small amount of oxygen. Trying to wean down his oxygen. May need home oxygen if he has enough strength to go home in the next couple of days. COVID pneumonia patient continued with dexamethasone. Refusing remdesivir. Clinically stable with laboratory tests stable at this point still symptomatic from cough and feeling mildly short of breath and significant weakness. Acute urinary retention. Patient failed a voiding trial. Continue with Flomax. Talley catheter was replaced. May need to have a Talley catheter at home or tried to be removed at the time of discharge. Diabetes non-insulin dependent patient's blood sugars have been a little bit elevated from steroid continue with home oral medication as well as insulin sliding scale. Coronary artery disease stable with no about acute symptoms of chest pain. Aortic stenosis chronic and stable. IV fluids are on hold today. Dehydration with volume depletion resolved. Assessment plan. Continue with eating sitting in chair ambulation weaning down oxygen may need home O2. Continue with Talley catheter for 24 more hours due to urinary retention may be removed before discharge. Anticipate discharge in 24- 48 hours Time Spent With Patient Critical Care time: I spent a total of [] minutes of critical care time on this patient's care today; this time is exclusive of procedural time. Quality VTE Deep Vein Thrombosis/Pulmonary Embolism Present on Admission: No
[2021-03-28 12:40] VITALS: BP 122/65; PULSE 74; RESP 15; TEMP 36.9; O2SAT 91
[2021-03-28] MEDS: DEXAMETHASONE 10 MG/ML VIAL 6 MG IV (20:47)
[2021-03-28] MEDS: ATORVASTATIN 20 MG TABLET 10 MG PO (20:48)
[2021-03-28 21:00] VITALS: BP 137/77; PULSE 80; RESP 20; TEMP 37.2; O2SAT 90
[2021-03-29] VITALS (7 sets, daily range): BP systolic 123–142; BP diastolic 62–68; PULSE 69–100; RESP 16–18; TEMP 36.7–36.8; O2SAT 89–95
[2021-03-29 06:45] LABS: Add Manual Diff / Slide Review NO; Basophils Absolute Auto 0 /uL (0-100); Basophils Percent Auto 0.1 % (0-2); Eosinophils Absolute Auto 0 /uL (0-450); Hematocrit 42.7 % (41-53); Lymphocytes Absolute Auto 400 /uL (1100-4500); Lymphocytes Percent Auto 3.1 % (25-40); Mean Corpuscular HGB Conc 32.9 % (30-36); Mean Corpuscular Hemoglobin 30.8 PG (26-34); Mean Corpuscular Volume 93.6 fL (80-100); Monocytes Absolute Auto 600 /uL (0-900); Monocytes Percent Auto 5.5 % (3-14); Neutrophils Absolute Auto 10400 /uL (1500-7000); Neutrophils Percent Auto 91.3 % (50-75); Platelet Count 214 X10^3/uL (150-400); Red Blood Cell Count 4.56 X10^6/uL (4.5-5.9); Red Cell Distribution Width 13.3 % (11.6-14.8); White Blood Cell Count 11.4 X10^3/uL (4.5-11.0)
[2021-03-29 06:53] LABS: INR 1.3 (0.9-1.3)
[2021-03-29 06:56] LABS: D Dimer 277 ng/mL (<230)
[2021-03-29 07:01] LABS: Alanine Aminotransferase 26 IU/L (<50); Albumin 2.9 g/dL (3.5-5.0); Albumin Globulin Ratio 1.1 (1.0-2.8); Alkaline Phosphatase 65 U/L (38-126); Aspartate Aminotransferase 39 IU/L (17-59); BUN Creatinine Ratio 21.6 (6-22); Bilirubin Total 0.4 mg/dL (0.2-1.3); Blood Urea Nitrogen 16 mg/dL (9-20); Calcium 8.2 mg/dL (8.4-10.2); Carbon Dioxide 27 mmol/L (22-32); Chloride 100 mmol/L (98-107); Estimated Glomerular Filt Rate > 60.0 mL/min (>60); Globulin 2.7 g/dL (1.7-4.1); Glucose 218 mg/dL (80-110); HEMOLYSIS < 15 (0-50); Potassium 4.5 mmol/L (3.4-5.1); Sodium 131 mmol/L (137-145); Total Protein 5.6 g/dL (6.3-8.2)
[2021-03-29] MEDS: INSULIN LISPRO 100 UNIT/ML 3ML VIAL SUBCUT ×4 (08:00→21:57)
[2021-03-29] MEDS: METFORMIN HCL 500 MG TABLET PO ×2 (08:02→18:00)
[2021-03-29] MEDS: TAMSULOSIN 0.4 MG CAPSULE PO ×2 (08:03→21:32)
[2021-03-29] MEDS: ENOXAPARIN 40 MG/0.4 ML SYRINGE SUBCUT (08:03)
[2021-03-29] MEDS: ASPIRIN EC 81 MG TABLET PO (08:03)
--- NOTE | 2021-03-29 08:10 | PM.PN.1 ---
Subjective Subjective Date Patient Seen: 03/29/21 Time Patient Seen: 08:11 Interval history: Patient really without any complaints. Definitely feels better than he did upon admission he says. Still feels kind of weak. Discussed with Dr. Mora about weekend events. Patient refused his remdesivir on Monday concerned about potential toxicity and does not want to go back on it. Patient also had difficulty emptying his bladder had a greater than 600 cc bladder scan and had catheter placed (with 675 cc upon placement) Coughing a bit intermittently positive for sputum Minimal oxygen requirements 0.5 L or 0 oxygen Exam Vital Signs (past 8 hours): - 03/29/21 00:22 03/29/21 05:00 03/29/21 08:00 Temperature 98.0 F Pulse Rate 86 69 Respiratory Rate 18 16 Blood Pressure 142/68 H Pulse Oximetry 92 90 L 89 L Oxygen Delivery Method Nasal Cannula Oxygen Flow Rate 0.5 Objective Labs Result Diagrams: 03/29/21 06:12 03/29/21 06:12 Labs: Laboratory Results - last 24 hr 03/29/21 03/29/21 03/29/21 06:12 06:12 06:12 WBC 11.4 H RBC 4.56 Hgb 14.0 Hct 42.7 MCV 93.6 MCH 30.8 MCHC 32.9 RDW 13.3 Plt Count 214 Neut % (Auto) 91.3 H Lymph % (Auto) 3.1 L [place] % (Auto) 5.5 Eos % (Auto) 0.0 L Baso % (Auto) 0.1 Neut # (Auto) 49385 H Lymph # (Auto) 400 L [place] # (Auto) 600 Eos # (Auto) 0 Baso # (Auto) 0 PT 14.0 H INR 1.3 D-Dimer 277 H Sodium 131 L Potassium 4.5 Chloride 100 Carbon Dioxide 27 BUN 16 Creatinine 0.74 Estimated GFR > 60.0 BUN/Creatinine Ratio 21.6 Glucose 218 H Calcium 8.2 L Total Bilirubin 0.4 AST 39 ALT 26 Alkaline Phosphatase 65 Total Protein 5.6 L Albumin 2.9 L Globulin 2.7 Albumin/Globulin Ratio 1.1 [facility] Medical History Aortic valve stenosis Coronary artery disease COVID-19 Diabetes History of GI bleed (08/2011) Hx of small bowel obstruction (01/2015) Mixed hyperlipidemia Surgical History 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 COVID pneumonia with acute respiratory failure-patient continues on dexamethasone. Has refuse the remdesivir. Is improving fortunately though. Oxygen requirements have diminished he has a very minimal but still has an oxygen requirement. Continue with current treatments. 2. Acute urinary retention-this is probably chronic to some degree. I would recommend increasing his tamsulosin to b.i.d. and leaving a catheter in place probably for 2 weeks and getting him in to see Urology for thoughts regarding next steps. Depending on his overall level of function here in the hospital I suppose we could try a voiding trial before discharging him depending on how long he is here 3. Diabetes-adequate control blood sugars for now despite the dexamethasone 4. Coronary disease-not an active issue 5. Weakness-will have Physical therapy see him get him up and around see if we can assess his physical state 6. Disposition-patient likely ready to go home sometime next 24-48 hours. May may not need oxygen at home. Maybe not benefit from home physical therapy depending on outcome of physical therapy evaluation today Note: Greater than 30 minutes total time was spent on day of service, evaluating the patient on the floor, including examining the patient, discussing clinical course with clinical and nursing staff, reviewing clinical course in the computer, preparing documentation and writing orders for continued management of care, discussing status with family as appropriate, reviewing plans for the next 24 hours with both patient/family and nursing staff as appropriate. Time Spent With Patient Critical Care time: I spent a total of [] minutes of critical care time on this patient's care today; this time is exclusive of procedural time. Quality VTE Deep Vein Thrombosis/Pulmonary Embolism Present on Admission: No
--- NOTE | 2021-03-29 12:01 | PT.IIE ---
Current Diagnoses Acute respiratory failure, unspecified whether with hypoxia or hypercapnia (03/25/21) COVID-19 (03/25/21) Medical History (Last Reviewed 03/29/21 @ 08:12 by Demetri Ca MD) Aortic valve stenosis Coronary artery disease COVID-19 Diabetes History of GI bleed (08/2011) Hx of small bowel obstruction (01/2015) Mixed hyperlipidemia Physical Therapy Inpatient Evaluation/Re-Eval M1 PT/OT-IP Prior Functional Status Start: 03/29/21 08:35 Freq: NEEDED Status: Active Protocol: Document 03/29/21 12:01 AW (Rec: 03/29/21 13:02 AW [id number]) Medical Review Prior Functional Status Medical History Reviewed Yes Communication WNL. Pt is an effective verbal communicator. Mobility and Gait Pt is active and independent at baseline. He states he tracks at least 8000 steps daily. He does not typically use any assistive device. Activities of Daily Living and IADL's Independent with all ADL's. 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 He manages his own medications and finances. Social History Household Members spouse,family,children Living Arrangements House Number of Floors (Floors) Two Floors Number of Stairs To Enter/Railing? Ramped entrance. Pt stays on the main/entry clerk. 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 Pt's mobilizes with a w/c. Pt and his son provide assist to pt's . 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 Pt's son will be available and able to assist the pt when he goes home. M2 PT-IP Current Condition Start: 03/29/21 08:35 Freq: NEEDED Status: Active Protocol: Document 03/29/21 12:01 AW (Rec: 03/29/21 13:02 AW [id number]) Physical Therapy Current Condition Current Condition Evaluation Date 03/29/21 Treatment Diagnosis COVID pneumonia; difficulty in walking Onset Date 03/25/21 M3 PT-IP Subjective Start: 03/29/21 08:35 Freq: NEEDED Status: Active Protocol: Document 03/29/21 12:01 AW (Rec: 03/29/21 13:02 AW [id number]) Subjective Physical Therapy Visit Type Type Initial Evaluation Visit Start Time 11:30 Visit Stop Time 12:01 Total Visit Minutes 31 Notes SPT Mary was present throughout and participated in mobility assist. Number of POUNCING MACHINE OPERATOR Visits 0 Physical Therapy Visit Comments Patient Comments Pt is willing to get up with PT Patient Goals Pt hopes to return home with family support. Therapy Pain Assessment Pain When Pain Assessed During Mobility Pain Present Pain Present Denied Pain M4 PT-IP Mobility and Gait Start: 03/29/21 08:35 Freq: NEEDED Status: Active Protocol: Document 03/29/21 12:01 AW (Rec: 03/29/21 13:02 AW [id number]) PT-Bed Mobility Assessment Supine to Sit Supine to Sit Minimal Assistance,1 Person Assistance,Bedrails Scooting Scooting to Edge of Bed Contact Guard Assistance PT-Transfer Assessment Sit to and From Stand Sit to and from Stand Contact Guard Assistance,1 Person Assistance,Use of Upper Extremities Equipment Transfer Assistive Device Gait Belt,Front Wheeled Walker Orthotic/Prosthetic Devices or Brace: No Transfers Transfer Destination Chair Transfer Technique ambulated with FWW Transfer Ability Level of Assist Contact Guard Assistance Comments Mobility Comments Pt was lying in bed as PT and SPT arrived. SpO2 90-91% on 1L /min O2 via NC. He sat up EOB min A x 1 and SpO2 dropped to mid-80's but recovered in less than a minute. He stood CGA and used FWW to ambulate around the room a total of 30 feet before sitting on the opposite side of the bed. SpO2 was 81% but again recovered to 88% within a minute. Pt stood and ambulated around the foot of the bed to the chair. SpO2 85% and recovered to 89% . Pt agreed to sit up on the chair and to call for mobility assist. Call light and tray table were left within pt's reach. Gait Assessment Gait Gait Assistance Required: Contact Guard Assist Distance (Feet) 30 Assistive Devices Assistive Device Gait Belt,Front Wheeled Walker Orthotic/Prosthetic Devices or Brace: No Gait Deviations General Gait Pattern Decreased Stride Length, Decreased Feet Clearance, Flexed Trunk Factors Limiting Gait Function Factors Limiting Gait Function Decreased Activity Tolerance, Decreased Strength,Respiratory Distress Comments Gait Comments See mobility comments for details. Stair Climbing Assessment Comments Stair Climbing Comments Not assessed. No stairs at home. PT-Balance Assessment Sitting Balance and Reactions Static Sitting Balance Ability Good Dynamic Sitting Balance Ability Good Standing Balance and Reactions Static Standing Balance Ability Fair Dynamic Standing Balance Ability Fair Device Used FWW M5 PT-IP Objective Assessments Start: 03/29/21 08:35 Freq: NEEDED Status: Active Protocol: Document 03/29/21 12:01 AW (Rec: 03/29/21 13:02 AW [id number]) Orientation Orientation/Cognition Level of Alertness Alert Orientation Name,Place,Situation Language Function Ability No Deficits Noted Safety Awareness Understands Safety Issues Gross Range of Motion Lower Extremity ROM Assessment Within Functional Limits Strength Lower Extremity Strength Assessment Bilaterally Impaired Hip 4/5 Knee 4+/5 Ankle 4+/5 Sensation Assessment Sensation Gross Sensation WNL Muscle Tone Muscle Tone WNL Yes M6 PT-IP Treatment Start: 03/29/21 08:35 Freq: NEEDED Status: Active Protocol: Document 03/29/21 12:01 AW (Rec: 03/29/21 13:02 AW [id number]) Physical Therapy Treatment Education Education Provided Safety M7 PT-IP Assessment and Plan Start: 03/29/21 08:35 Freq: NEEDED Status: Active Protocol: Document 03/29/21 12:01 AW (Rec: 03/29/21 13:02 AW [id number]) PT Summary Assessment and Plan Potential Rehabilitation Potential Good Status of Condition at Evaluation Evolving Summary Impairments Strength,Balance,Bed Mobility, Transfers,Gait,Activity Tolerance Assessment Summary Pan is an 81 yo man with admitting diagnosis of COVID pneumonia. He is active and independent at baseline. He and his son provide care at home for his who mobilizes with a wheelchair and needs assist for ADL's. 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 On evaluation, pt required CGA to min assist with all mobility using FWW and SpO2 dropped from 91% at rest to 81-85% during activity with 1L O2. Pt is expected to progress during his hospital stay. PT recommends continued use of FWW and home health PT to progress his safe mobility and activity tolerance at home once he is medically stable for discharge. Goals Bed Mobility Goal Independent Transfer Goal Independent,Front Wheeled Walker Gait Goal Independent,Front Wheel Walker Gait Distance 100 Other Goals - improve transfers and gait to IND with LRAD Days to Meet Goals 5 Frequency of Treatment Frequency Of Treatment Once a Day Treatment Plan Physical Therapy Treatment Plan Bed Mobility Training,Transfer Training,Gait Training, Therapeutic Exercise,Balance Retraining,Discharge Planning Other Recommendations and Next Treatment ambulation with FWW/LRAD Focus Precautions Other Precautions COVID (+) Recommendations To Nursing Amount of Assist Needed Standby Assistance,1 Person Assist Discharge Recommendations PT Discharge Recommendations Home with Assistance,Home Health Equipment Needed for Home Before FWW Discharge Transportation Needs at Discharge Private Vehicle
[2021-03-29] MEDS: ATORVASTATIN 20 MG TABLET 10 MG PO (21:33)
[2021-03-29] MEDS: DEXAMETHASONE 10 MG/ML VIAL 6 MG IV (21:33)
[2021-03-30 06:55] LABS: INR 1.2 (0.9-1.3); Prothrombin Time 13.5 SECONDS (10.1-12.7)
[2021-03-30 06:58] LABS: Add Manual Diff / Slide Review NO; Basophils Absolute Auto 0 /uL (0-100); Basophils Percent Auto 0.1 % (0-2); Eosinophils Absolute Auto 0 /uL (0-450); Hemoglobin 14.1 g/dL (13.5-17.5); Lymphocytes Absolute Auto 400 /uL (1100-4500); Lymphocytes Percent Auto 2.3 % (25-40); Mean Corpuscular HGB Conc 32.9 % (30-36); Mean Corpuscular Hemoglobin 30.5 PG (26-34); Mean Corpuscular Volume 92.9 fL (80-100); Monocytes Absolute Auto 800 /uL (0-900); Neutrophils Absolute Auto 14300 /uL (1500-7000); Neutrophils Percent Auto 92.6 % (50-75); Platelet Count 217 X10^3/uL (150-400); Red Blood Cell Count 4.63 X10^6/uL (4.5-5.9); Red Cell Distribution Width 13.3 % (11.6-14.8); White Blood Cell Count 15.4 X10^3/uL (4.5-11.0)
[2021-03-30 07:05] LABS: Alanine Aminotransferase 50 IU/L (<50); Albumin Globulin Ratio 1.1 (1.0-2.8); Alkaline Phosphatase 69 U/L (38-126); Aspartate Aminotransferase 59 IU/L (17-59); BUN Creatinine Ratio 22.4 (6-22); Bilirubin Total 0.5 mg/dL (0.2-1.3); Blood Urea Nitrogen 17 mg/dL (9-20); Calcium 8.3 mg/dL (8.4-10.2); Carbon Dioxide 27 mmol/L (22-32); Chloride 99 mmol/L (98-107); Estimated Glomerular Filt Rate > 60.0 mL/min (>60); Globulin 2.7 g/dL (1.7-4.1); Glucose 216 mg/dL (80-110); HEMOLYSIS < 15 (0-50); Potassium 4.4 mmol/L (3.4-5.1); Sodium 131 mmol/L (137-145); Total Protein 5.7 g/dL (6.3-8.2)
--- NOTE | 2021-03-30 08:12 | PM.PN.1 ---
Subjective Subjective Date Patient Seen: 03/30/21 Time Patient Seen: 08:12 Interval history: Patient reports having a pretty good day yesterday. Physical therapy says he is pretty good all things considered that he is 81 with COVID on oxygen. Still pretty weak and struggles a bit with bed mobility. I tried to help him set up for breakfast which I brought him this morning and that was a bit of a struggle Still has a tiny oxygen requirement. He desaturates with activity Exam Vital Signs (past 8 hours): Oxygen Delivery Method Nasal Cannula Oxygen Flow Rate 1 Objective Labs Result Diagrams: 03/30/21 07:00 03/30/21 07:00 Labs: Laboratory Results - last 24 hr 03/30/21 03/30/21 03/30/21 07:00 07:00 07:00 WBC 15.4 H RBC 4.63 Hgb 14.1 Hct 43.0 MCV 92.9 MCH 30.5 MCHC 32.9 RDW 13.3 Plt Count 217 Neut % (Auto) 92.6 H Lymph % (Auto) 2.3 L [place] % (Auto) 5.0 Eos % (Auto) 0.0 L Baso % (Auto) 0.1 Neut # (Auto) 96009 H Lymph # (Auto) 400 L [place] # (Auto) 800 Eos # (Auto) 0 Baso # (Auto) 0 PT 13.5 H INR 1.2 Sodium 131 L Potassium 4.4 Chloride 99 Carbon Dioxide 27 BUN 17 Creatinine 0.76 Estimated GFR > 60.0 BUN/Creatinine Ratio 22.4 H Glucose 216 H Calcium 8.3 L Total Bilirubin 0.5 AST 59 ALT 50 H Alkaline Phosphatase 69 Total Protein 5.7 L Albumin 3.0 L Globulin 2.7 Albumin/Globulin Ratio 1.1 [facility] Medical History Aortic valve stenosis Coronary artery disease COVID-19 Diabetes History of GI bleed (08/2011) Hx of small bowel obstruction (01/2015) Mixed hyperlipidemia Surgical History 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 COVID pneumonia with acute respiratory failure-continue with current treatments including the Decadron. Will plan to have respiratory therapy evaluate him for home oxygen which is likely going to be necessary. Patient continues to decline remdesivir 2. Diabetes-blood sugars are up slightly. Not surprising given the dexamethasone. Overall I think that is okay. 3. Urinary retention-I am going to remove his [place] today and see how he does without that. See what his postvoid residual looks like with ultrasound 4. Coronary disease-stable not active issue Overall patient is improved perhaps ready to go home within the next 24 hours if not today. Will need home health services. It appears he will need home oxygen as well. Whether not he will require urinary catheter is yet to be determined. Note: Greater than 30 minutes total time was spent on day of service, evaluating the patient on the floor, including examining the patient, discussing clinical course with clinical and nursing staff, reviewing clinical course in the computer, preparing documentation and writing orders for continued management of care, discussing status with family as appropriate, reviewing plans for the next 24 hours with both patient/family and nursing staff as appropriate. Time Spent With Patient Critical Care time: I spent a total of [] minutes of critical care time on this patient's care today; this time is exclusive of procedural time. Quality VTE Deep Vein Thrombosis/Pulmonary Embolism Present on Admission: No
[2021-03-30 08:30] VITALS: BP 112/60; PULSE 85; RESP 18; TEMP 36.9; O2SAT 93
[2021-03-30 08:57] VITALS: O2SAT 95
[2021-03-30] MEDS: ENOXAPARIN 40 MG/0.4 ML SYRINGE SUBCUT (09:02)
[2021-03-30] MEDS: ASPIRIN EC 81 MG TABLET PO (09:02)
[2021-03-30] MEDS: TAMSULOSIN 0.4 MG CAPSULE PO ×2 (09:02→20:03)
[2021-03-30] MEDS: METFORMIN HCL 500 MG TABLET PO ×2 (09:02→18:08)
[2021-03-30] MEDS: INSULIN LISPRO 100 UNIT/ML 3ML VIAL SUBCUT ×4 (09:05→21:34)
[2021-03-30 12:00] VITALS: BP 128/62; PULSE 73; RESP 18; TEMP 36.6; O2SAT 94
--- NOTE | 2021-03-30 14:28 | CM.DANOTE ---
DCP/Assessment: Reviewed chart. Patient is a 81yr old male admitted to [facility] with COVID + PCP is Dr. Ca. Primary payor is [employer] AD[employer]. Spoke with patient via the telephone today. Patient reports that he resides with family and is primarily I in ADL's. Patient reports feeling better today. It is unclear if patient will need home 02 but respiratory consult is ordered. Patient agreeable to HH and F2F left in red folder for Dr. Ca to sign. Patient provided TRUCK SALES REPRESENTATIVE with permission to call his daughter/Maria Guadalupe at [phone]. TRUCK SALES REPRESENTATIVE called Maria Guadalupe and she reports that about half the family are vaccinated and the other half are not. Patient's spouse currently home with COVID. Daughter reports that spouse was in ED on Monday03-27-21. Daughter reports that family will pick patient up when he is medically stable. Patient may need FWW but he is unsure at this time. P: Home with HH when medically stable. F2F in red folder to be signed. Home health will need to be set up prior to d/c. LIT Discharge Planning/Care Management CM Discharge Assessment Start: 03/30/21 14:22 Freq: Status: Active Protocol: Document 03/30/21 14:22 LIT (Rec: 03/30/21 14:28 LIT [id number]) Discharge Planning Assessment Assigned Plane Tableman JASMYN Swenson Contact Information Maria Guadalupe (daughter) ph# [phone] Advance Directives? No History Provided By Patient,Family Member,Medical Record Prior Living Arrangements House Household Members spouse,family,children Type of transporation used prior to Drives own vehicle admit Independent with ADL's Yes Is patient alert and oriented? Yes Patient/Family Preference Home with Home Health Barriers to Discharge No Transportation Arrangement Family to provide transportation. Additional Comment F2F left in red folder for provider to sign. Whiteboard Updated in Patient Room with No name and ext. # of Plane Tableman Comment COVID + Review Status In Process Next Review Type Continued Stay Review
--- NOTE | 2021-03-30 16:08 | PT.IPTN ---
Current Diagnoses Acute respiratory failure, unspecified whether with hypoxia or hypercapnia (03/25/21) COVID-19 (03/25/21) Physical Therapy Treatment Note M2 PT-IP Current Condition Start: 03/29/21 08:35 Freq: NEEDED Status: Active Protocol: Document 03/29/21 12:01 AW (Rec: 03/29/21 13:02 AW [id number]) Physical Therapy Current Condition Current Condition Evaluation Date 03/29/21 Treatment Diagnosis COVID pneumonia; difficulty in walking Onset Date 03/25/21 M3 PT-IP Subjective Start: 03/29/21 08:35 Freq: NEEDED Status: Active Protocol: Document 03/30/21 15:40 KS (Rec: 03/30/21 16:41 KS [id number]) Subjective Physical Therapy Visit Type Type Treatment Note Visit Start Time 15:40 Visit Stop Time 16:08 Total Visit Minutes 28 Number of FACILITY SUPERVISOR Visits 1 Physical Therapy Visit Comments Patient Comments Pt is willing to get up with PT, requesting to use toilet. Patient Goals Pt hopes to return home with family support. M4 PT-IP Mobility and Gait Start: 03/29/21 08:35 Freq: NEEDED Status: Active Protocol: Document 03/30/21 15:40 KS (Rec: 03/30/21 16:41 KS [id number]) PT-Bed Mobility Assessment Supine to Sit Supine to Sit Contact Guard Assistance,1 Person Assistance,Bedrails Scooting Scooting to Edge of Bed Contact Guard Assistance PT-Transfer Assessment Sit to and From Stand Sit to and from Stand Contact Guard Assistance,1 Person Assistance,Use of Upper Extremities Equipment Transfer Assistive Device Gait Belt,Front Wheeled Walker Orthotic/Prosthetic Devices or Brace: No Transfers Transfer Destination Chair Transfer Technique ambulated with FWW Transfer Ability Level of Assist Contact Guard Assistance Comments Mobility Comments Pt in bed upon arrival from therapy on 1.5 L O2 and oxygen 96%. CGA for sup<>sit ad scooting EOB. O2 stable on 1.5 L. Pt sit<>stand w/ FWW CGA and ambulated ~15 ft to toilet . O2 dropped to 84% but recovered to 90-91% quickly. After toileting, pt ambulated to sink w/ FWW CGA, able to maintain standing balance ~ 1 min while washing hands and O2 88%. He then ambulated back to bed and sit<>sup CGA. Pt denied SOB, O2 91% but then was not able to get good reading. RN and FINANCIAL ACCOUNTING MANAGER notified and pt left in bed w/ all needs in reach and alarm on. Gait Assessment Gait Gait Assistance Required: Contact Guard Assist Distance (Feet) 40 Assistive Devices Assistive Device Gait Belt,Front Wheeled Walker Orthotic/Prosthetic Devices or Brace: No Gait Deviations General Gait Pattern Decreased Stride Length, Decreased Feet Clearance, Flexed Trunk Factors Limiting Gait Function Factors Limiting Gait Function Decreased Activity Tolerance, Decreased Strength,Respiratory Distress Comments Gait Comments See mobility comments for details. Stair Climbing Assessment Comments Stair Climbing Comments Not assessed. No stairs at home. PT-Balance Assessment Sitting Balance and Reactions Static Sitting Balance Ability Good Dynamic Sitting Balance Ability Good Standing Balance and Reactions Static Standing Balance Ability Fair Dynamic Standing Balance Ability Fair Device Used FWW M5 PT-IP Objective Assessments Start: 03/29/21 08:35 Freq: NEEDED Status: Active Protocol: Document 03/29/21 12:01 AW (Rec: 03/29/21 13:02 AW [id number]) Orientation Orientation/Cognition Level of Alertness Alert Orientation Name,Place,Situation Language Function Ability No Deficits Noted Safety Awareness Understands Safety Issues Gross Range of Motion Lower Extremity ROM Assessment Within Functional Limits Strength Lower Extremity Strength Assessment Bilaterally Impaired Hip 4/5 Knee 4+/5 Ankle 4+/5 Sensation Assessment Sensation Gross Sensation WNL Muscle Tone Muscle Tone WNL Yes M6 PT-IP Treatment Start: 03/29/21 08:35 Freq: NEEDED Status: Active Protocol: Document 03/30/21 15:40 KS (Rec: 03/30/21 16:41 KS [id number]) Physical Therapy Treatment Education Education Provided Safety M7 PT-IP Assessment and Plan Start: 03/29/21 08:35 Freq: NEEDED Status: Active Protocol: Document 03/30/21 15:40 KS (Rec: 03/30/21 16:41 KS [id number]) PT Summary Assessment and Plan Potential Rehabilitation Potential Good Status of Condition at Evaluation Evolving Summary Impairments Strength,Balance,Bed Mobility, Transfers,Gait,Activity Tolerance Assessment Summary Pt continues to require CGA for all mobility, transfers, and ambulation. Able to ambulate ~40 ft total w/ FWW CGA and maintain standing balance ~1 min for hand washing. On 1.5 L, pts O2 decreased w/ mobility but recovered quickly each time and pt denied SOB. O2 96% on arrival and 84-91% w/ mobility . Recommend use of FWW and HHPT to improve safety, mobility, and activity tolerance at home. Goals Bed Mobility Goal Independent Transfer Goal Independent,Front Wheeled Walker Gait Goal Independent,Front Wheel Walker Gait Distance 100 Other Goals - improve transfers and gait to IND with LRAD Days to Meet Goals 5 Frequency of Treatment Frequency Of Treatment Once a Day Treatment Plan Physical Therapy Treatment Plan Bed Mobility Training,Transfer Training,Gait Training, Therapeutic Exercise,Balance Retraining,Discharge Planning Other Recommendations and Next Treatment ambulation with FWW/LRAD Focus Precautions Other Precautions COVID (+) Recommendations To Nursing Amount of Assist Needed Standby Assistance,1 Person Assist Discharge Recommendations PT Discharge Recommendations Home with Assistance,Home Health Equipment Needed for Home Before FWW Discharge Transportation Needs at Discharge Private Vehicle
[2021-03-30 19:23] VITALS: O2SAT 93
[2021-03-30] MEDS: ATORVASTATIN 20 MG TABLET 10 MG PO (20:02)
[2021-03-30] MEDS: DEXAMETHASONE 10 MG/ML VIAL 6 MG IV (20:03)
[2021-03-30 20:25] VITALS: BP 129/69; PULSE 80; RESP 18; TEMP 36.9; O2SAT 93
[2021-03-31 06:21] VITALS: BP 134/59; PULSE 71; RESP 19; TEMP 37.3; O2SAT 93
[2021-03-31] MEDS: ASPIRIN EC 81 MG TABLET PO (08:19)
[2021-03-31] MEDS: TAMSULOSIN 0.4 MG CAPSULE PO (08:19)
[2021-03-31] MEDS: METFORMIN HCL 500 MG TABLET PO (08:19)
[2021-03-31] MEDS: ENOXAPARIN 40 MG/0.4 ML SYRINGE SUBCUT (08:20)
[2021-03-31] MEDS: INSULIN LISPRO 100 UNIT/ML 3ML VIAL SUBCUT (08:27)
--- NOTE | 2021-03-31 08:49 | P.DS_ITS ---
History of Present Illness History of Present Illness Date Patient Seen: 03/31/21 Time Patient Seen: 08:49 Chief complaint: syncope Narrative: 81-year-old male who was diagnosed with COVID on the 20 of March. He has been at home and without severe symptoms. He is unvaccinated for reasons that he cannot articulate to me Patient presented to the [facility] Emergency Department after a syncopal spell at home. Apparently patient felt dizzy and lightheaded and collapsed on the floor of his kitchen. He has been feeling weak and probably had limited oral intake due to his viral infection. EMS was summoned and they found him to be both orthostatic and hypoxic on room air In the ER he was evaluated given some IV fluids placed on oxygen. No evidence of anything beyond the presumed COVID induced pneumonia and acute respiratory failure. Given his age and comorbidities and hypoxia he was admitted to the hospital for ongoing therapy for his COVID pneumonia. Patient also is felt to be somewhat volume depleted likely secondary to his lack of oral intake in the setting of his COVID infection and will be rehydrated as well Discharge Providers Provider Date of admission: 03/25/21 21:28 Discharge Date: 03/31/21 Primary care physician: Demetri Ca MD Consults: 03/29/21 07:44 Consult to Physical Therapy Evaluate & Treat Comment: weakness Physician Instructions: Evaluate and Treat 03/29/21 07:45 Consult to Discharge Planning Routine Comment: Discharge provider: Demetri Ca MD Summary Hospital Course Discharge Diagnosis: 1. Acute respiratory failure with hypoxia 2. COVID-19 pneumonia 3. Coronary artery disease, stable 4. Diabetes type 2 5. Aortic valve stenosis 6. Acute urinary retention, resolved Hospital Course: Patient was admitted as above. He initially got treated with remdesivir and dexamethasone but subsequently declined any additional treatment with remdes ivir. He continued on dexamethasone alone. His oxygen requirement diminished slightly although with activity continued to be somewhat hypoxic and requiring very low rate oxygen replacement therapy. He was felt to be stable over the course of several days from respiratory standpoint but still required oxygen. He was felt to be okay for discharge home but to continue with continuous oxygen at 1 liter/minute which is been sufficient for correcting his hypoxia here at the hospital Patient also found to be in acute urinary retention with a postvoid residual in excess of 600 cc. Catheter was placed in his tamsulosin was increased. After several days with catheter in place and with patient improving otherwise his catheter was removed and he was able to void on his own Patient's blood sugars were somewhat elevated likely due to the dexamethasone he was administered. They were controlled with insulin. Overall he had adequate although not excellent control of his blood sugars His cardiac issues or not active during this hospitalization Status at Discharge Cognitive/behavioral status at discharge: at baseline, oriented Functional status at discharge: uses cane/walker Overall status at discharge: patient is progressing back to baseline Time Spent with Patient Time spent: Greater than 30 minutes Exam Vital Signs (past 8 hours): - 03/31/21 06:21 Temperature 99.1 F Pulse Rate 71 Respiratory Rate 19 Blood Pressure 134/59 L Pulse Oximetry 93 Oxygen Delivery Method Nasal Cannula Oxygen Flow Rate 1 Narrative Exam Narrative: Elderly male in no obvious distress lying in his hospital bed HEENT-unremarkable Lungs-scattered crackles at the bases primarily Heart-regular rate and rhythm Abdomen-benign Extremities-no cyanosis clubbing or edema Objective Labs Result Diagrams: 03/30/21 07:00 03/30/21 07:00 [facility] Medical History Aortic valve stenosis Coronary artery disease COVID-19 Diabetes History of GI bleed (08/2011) Hx of small bowel obstruction (01/2015) Mixed hyperlipidemia Surgical History 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 He has been stable over several days on oxygen here in the hospital. Not really receiving any specific therapies as he has declined remdesivir etcetera. Hopefully he will slowly continue to improve in the home setting He may need urology evaluation as an outpatient as well depending on his clinical course in that regard Discharge Plan Discharge Plan Patient Disposition: Home Health Service Provider Discharge Comment: Home Oxygen as per RT 1 l/min [place] continuous Discharge orders & Medications Prescriptions: New tamsulosin [Flomax] 0.4 mg Capsule 0.4 mg PO BID Qty: 180 3RF Continued aspirin 81 MG tablet,delayed release (DR/EC) 81 mg PO QDAY Qty: 0 0RF simvastatin 20 mg tablet 20 mg PO HS Qty: 90 3RF metformin [Glucophage] 500 mg tablet 500 mg PO BIDCC Qty: 180 0RF Discontinued tamsulosin [Flomax] 0.4 mg capsule 0.4 mg PO QDAY Qty: 90 3RF Follow up/Referrals: Demetri Ca MD [Primary Care Provider] - 2 Weeks Diet/Activity/Treatments Diet: Diet as Tolerated and Carb-consistent/Diabetic Oxygen: 1 l/min [place] continuous Visit Report/Discharge Packet Instructions: Home Oxygen Therapy, DI for Pneumonia -- Adult, DI for Oxygen Therapy -- Adult, How to Measure Oxygen Saturation via Pulse Oximetry, How to Perform Oxygen Therapy via Cannula, DI for COVID-19 (Suspected or Confirmed ) Discharge Data Primary Care Provider: Demetri Ca Quality VTE Deep Vein Thrombosis/Pulmonary Embolism Present on Admission: No
--- NOTE | 2021-03-31 11:11 | PT-IP ANOTE ---
Pt refused treatment. He is discharging soon.
[2021-03-31 11:33] VITALS: O2SAT 94
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
== END 2021-03-31 11:35 | disposition home health service (06) | DRG 177 ==
LOC: ED 20:33 → AC 21:29
PROVIDERS: Admitting Provider Internal Medicine; Emergency Provider Emergency Medicine; PCP Internal Medicine; Referring Provider Emergency Medicine; Visit Provider Internal Medicine
DX: U07.1 COVID-19 (principal); J12.82 Pneumonia due to coronavirus disease 2019; J96.01 Acute respiratory failure with hypoxia; E86.0 Dehydration; R33.9 Retention of urine, unspecified; I25.10 Atherosclerotic heart disease of native coronary artery without angina pectoris; E11.9 Type 2 diabetes mellitus without complications; E78.5 Hyperlipidemia, unspecified; Z87.891 Personal history of nicotine dependence; Z95.1 Presence of aortocoronary bypass graft; Z79.84 Long term (current) use of oral hypoglycemic drugs
CPT/HCPCS: 36415; 36600; 71045; 80053; 82550; 82728; 82805; 82962; 83605; 83615; 83880; 84484; 85025; 85379; 85610; 86140; 87040; 87150; 87205; 87633; 93005; 93010; 94618; 94760; 94762; 96361; 96365; 96375; 97116; 97162; 97530; 99223; 99232; 99233; 99238; 99285; J1100; J1650; J1815

== ENCOUNTER 2021-04-06 19:35 | Emergency (ER) | payer OTHER, SELFPAY ==
[2021-03-25 22:38] VITALS: BMI 28.8
[2021-04-06] VITALS (23 sets, daily range): BP systolic 121–149; BP diastolic 60–92; PULSE 74–85; RESP 12–40; TEMP 37.3; O2SAT 75–99
--- NOTE | 2021-04-06 19:49 | ED_ITS ---
HPI - SOB/Dyspnea General Chief Complaint: Shortness of Breath/Dyspnea Stated Complaint: Covid + / SOB Time Seen by Provider: 04/06/21 19:38 History of Present Illness HPI Narrative: Patient is a 81-year-old male history of diabetes hyperlipidemia go home recent admission for COVID-19 and pneumonia diagnosed on March 20, admitted to the hospital March 25 discharged to home on oxygen 1L/min, March 31 presenting today with hypoxia. The 74% on room air. Currently on 10 L nasal cannula and a non-rebreather and satting 94%. He says over the last couple of days he has had increasing shortness of breath. He denies any fever or chills. According to records he declined taking remdesivir on hand written paper I have her medicine is listed unclear if he is taking this as well. He denies any fever or chills no chest pain now at patient he denies any role shortness of br eath is just says he has not felt well over the last couple of days. Related Data Home Medications Medication Instructions Recorded Confirmed aspirin 81 mg tablet,delayed 81 mg PO QAM #0 10/12/16 04/06/21 release budesonide 0.5 mg/2 mL suspension 0.5 mg INHALATION Q2HR PRN 04/06/21 04/06/21 for nebulization clarithromycin 500 mg tablet 500 mg PO BID 04/06/21 04/06/21 dexamethasone 2 mg tablet 6 mg PO QAM 04/06/21 04/06/21 diphenhydramine HCl 25 mg capsule 25 mg PO BEDTIME 04/06/21 04/06/21 (Benadryl) montelukast 10 mg tablet 10 mg PO DAILY 04/06/21 04/06/21 Previous Rx's Medication Instructions Recorded simvastatin 20 mg tablet 20 mg PO HS #90 tab 05/20/20 metformin 500 mg tablet 500 mg PO BIDCC #180 tab 07/01/20 (Glucophage) tamsulosin 0.4 mg capsule (Flomax) 0.4 mg PO BID #180 cap 03/30/21 Allergies Allergy/AdvReac Type Severity Reaction Status Date / Time No Known Drug Allergies Allergy Verified 09/21/20 14:25 Review of Systems Review of Systems ROS Unobtainable: All systems reviewed & are unremarkable except as noted in HPI and below Constitutional Constitutional: Reports body ache(s) and Reports fatigue ENT Ears, Nose, Mouth, and Throat: Denies vertigo and Denies dizziness Cardiovascular Cardiovascular: Denies chest pain, Denies chest pain at rest and Denies edema Respiratory Respiratory: Reports as per HPI Gastrointestinal Gastrointestinal: Denies diarrhea, Denies nausea and Denies vomiting Genitourinary Genitourinary: Reports as per HPI (history of urinary retention on last admisison) Musculoskeletal Musculoskeletal: Denies myalgias Integumentary/Breasts Skin/Breast: Denies rash Neurologic Neurologic: Denies vertigo and Denies dizziness Endocrine Endocrine: Reports fatigue Patient History Medical History Aortic valve stenosis Coronary artery disease COVID-19 Diabetes History of GI bleed (08/2011) Hx of small bowel obstruction (01/2015) Mixed hyperlipidemia Surgical History 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) Hx of hernia repair (Unknown) Social History household members: spouse, family and children Smoking Status: Former smoker alcohol intake: current Smoking Status: Former smoker alcohol intake frequency: a few times a week Substance Use Type: does not use Exam Initial Vital Signs Initial Vital Signs: Vital Signs Temperature 99.1 F 04/06/21 19:35 Pulse Rate 85 04/06/21 19:35 Respiratory Rate 40 H 04/06/21 19:35 Blood Pressure 135/92 H 04/06/21 19:35 Pulse Oximetry 75 L 04/06/21 19:35 GENERAL: 81-year-old male on nasal cannula on non-rebreather difficulty breathing HEENT: Head atraumatic,EOMI, pupils reactive, face symmetric, moist mucous membranes CARDIOVASCULAR: Regular rate and rhythm without murmurs, rubs or gallops. RESPIRATORY: Decreased breath sounds bilaterally crackles at base ABDOMEN: Soft, nontender. Normoactive bowel sounds all 4 quadrants. No guarding or rebound. EXTREMITIES: Normal range of motion, no clubbing or edema. Neurovascularly intact NEUROLOGICAL: Alert and oriented x4.Normal gait and speech. SKIN: Warm, dry, no laceration, no petechiae, no rashes or lesions. Course Orders Ordered: ED Orders 04/06/21 20:28 Arterial Blood Gas Stat 04/06/21 21:05 C-Reactive Protein Quant Stat Complete Blood Count AUTO DIFF Stat Comprehensive Metabolic Panel Stat D Dimer Stat Ferritin Stat Lactate (Lactic Acid) Stat Lactate Dehydrogenase Stat NT-proBNP (BNP-Adult 18+) Stat PT [Prothrombin Time INR] Stat PTT [Partial Thromboplastin Time] Stat Procalcitonin Stat Troponin & CK Cardiac Panel Stat 04/06/21 21:10 Consult After Hours PICC Line RN Stat 04/06/21 23:14 XR chest for PICC 1V Stat Discontinued Medications Dexamethasone (Dexamethasone 10 Mg/Ml Vial) 6 mg IV NOW ONE Stop: 04/07/21 00:33 Last Admin: 04/07/21 01:11 Dose: 6 mg Documented by: STEPHEN Furosemide (Furosemide 40 Mg/4 Ml Vial) 20 mg IV NOW ONE Stop: 04/06/21 21:58 Last Admin: 04/06/21 22:09 Dose: 20 mg Documented by: STEPHEN Remdesivir 200 mg/ Sodium (Chloride) 250 mls @ 250 mls/hr IV NOW ONE Stop: 04/07/21 01:31 Last Infusion: 04/07/21 02:15 Dose: 0 mls/hr Documented by: Admin: 04/07/21 01:10 Dose: 250 mls/hr Documented by: STEPHEN Vital Signs Vital signs: Vital Signs - 8 hr 04/06/21 21:30 04/06/21 21:42 04/06/21 21:45 Pulse Rate 76 80 75 Respiratory Rate 21 Blood Pressure 136/66 134/67 137/70 Pulse Oximetry 98 98 99 04/06/21 22:15 04/06/21 22:26 04/06/21 22:30 Pulse Rate 78 76 74 Respiratory Rate 18 23 12 Blood Pressure 138/65 Pulse Oximetry 96 94 97 04/06/21 22:45 04/06/21 22:54 04/06/21 23:00 Pulse Rate 75 76 75 Respiratory Rate 19 18 20 Blood Pressure 138/65 138/65 121/62 Pulse Oximetry 96 94 95 04/06/21 23:15 04/06/21 23:30 04/06/21 23:45 Pulse Rate 81 82 79 Respiratory Rate 21 26 H 19 Blood Pressure 134/66 135/69 127/60 Pulse Oximetry 95 88 L 95 04/07/21 00:00 04/07/21 00:15 04/07/21 00:30 Pulse Rate 79 78 72 Respiratory Rate 24 30 H 24 Blood Pressure 120/58 L 123/60 119/59 L Pulse Oximetry 96 96 96 04/07/21 00:45 04/07/21 01:00 04/07/21 01:04 Pulse Rate 60 69 70 Respiratory Rate 27 H 19 19 Blood Pressure 103/54 L 137/62 137/67 Pulse Oximetry 96 96 94 04/07/21 01:15 04/07/21 01:30 04/07/21 01:45 Pulse Rate 78 70 61 Respiratory Rate 22 20 16 Blood Pressure 114/53 L 113/57 L 113/57 L Pulse Oximetry 95 96 96 04/07/21 02:00 04/07/21 02:15 04/07/21 02:30 Pulse Rate 56 L 54 L 66 Respiratory Rate 35 H 27 H 18 Blood Pressure 121/58 L 113/55 L Pulse Oximetry 97 97 97 04/07/21 02:31 04/07/21 02:45 04/07/21 03:00 Pulse Rate 67 66 68 Respiratory Rate 20 17 27 H Blood Pressure 129/59 L 129/65 139/67 Pulse Oximetry 97 97 98 04/07/21 03:15 04/07/21 03:25 04/07/21 03:30 Pulse Rate 70 68 65 Respiratory Rate 17 21 27 H Blood Pressure 132/63 132/63 119/55 L Pulse Oximetry 97 97 97 04/07/21 03:45 04/07/21 04:00 04/07/21 04:01 Pulse Rate 64 62 60 Respiratory Rate 29 H 29 H 27 H Blood Pressure 126/63 114/63 Pulse Oximetry 98 96 96 04/07/21 04:15 Pulse Rate 66 Respiratory Rate 23 Blood Pressure 125/68 Pulse Oximetry 97 MDM - SOB/Dyspnea Lab Data Result diagrams: 04/06/21 21:05 04/06/21 21:05 Labs: Lab Results 04/06/21 04/06/21 04/06/21 Range/Units 20:20 20:28 21:05 WBC (4.5-11.0) X10^3/uL RBC (4.5-5.9) X10^6/uL Hgb (13.5-17.5) g/dL Hct (41-53) % MCV (80-100) fL MCH (26-34) PG MCHC (30-36) % RDW (11.6-14.8) % Plt Count (150-400) X10^3/uL Neut % (Auto) (50-75) % Lymph % (Auto) (25-40) % [place] % (Auto) (3-14) % Eos % (Auto) (2-4) % Baso % (Auto) (0-2) % Neut # (Auto) (5205-2466) /uL Lymph # (Auto) (8167-4030) /uL [place] # (Auto) (0-900) /uL Eos # (Auto) (0-450) /uL Baso # (Auto) (0-100) /uL PT (10.1-12.7) SECONDS INR (0.9-1.3) APTT (26.4-36.2) SECONDS D-Dimer 826 H (<230) ng/mL ABG pH 7.47 H (7.35-7.45) ABG pCO2 30.9 L (35-45) mmHg ABG pO2 96 (80-100) mmHg ABG HCO3 22 (22-26) mmol/L ABG Total CO2 23 (21-31) mmol/L ABG O2 Saturation 98 (95-100) % ABG Base Excess -1.0 (-2-2) mmol/L FiO2 100 Sodium (137-145) mmol/L Potassium (3.4-5.1) mmol/L Chloride (98-107) mmol/L Carbon Dioxide (22-32) mmol/L BUN (9-20) mg/dL Creatinine (0.66-1.25) mg/dL Estimated GFR (>60) mL/min BUN/Creatinine Ratio (6-22) Glucose (80-110) mg/dL Lactate (0.7-2.1) mmol/L Calcium (8.4-10.2) mg/dL Ferritin (18-464) ng/mL Total Bilirubin (0.2-1.3) mg/dL AST (17-59) IU/L ALT (<50) IU/L Alkaline Phosphatase (38-126) U/L Lactate Dehydrogenase (313-618) U/L Total Creatine Kinase (55-170) U/L CK-MB (CK-2) CK-MB (CK-2) Rel Index Troponin I (0.01-0.034) ng/mL C-Reactive Protein (<1.0) mg/dL NT-Pro-B Natriuret Pep (<450) pg/mL Total Protein (6.3-8.2) g/dL Albumin (3.5-5.0) g/dL Globulin (1.7-4.1) g/dL Albumin/Globulin Ratio (1.0-2.8) Procalcitonin (<0.5) ng/mL Chlamy pneumoniae PCR Not detected (Not Detect) Adenovirus (PCR) Not detected (Not Detect) B. pertussis DNA (PCR) Not detected (Not Detecte) B.parapertussis DNA PCR Not detected (Not Detecte) Coronavirus OC43 (PCR) Not detected (Not Detect) Coronavirus HKU1 (PCR) Not detected (Not Detect) Coronavirus 229E (PCR) Not detected (Not Detect) SARS-CoV-2 (PCR) Detected H (Not Detecte) Coronavirus NL63 (PCR) Not detected (Not Detect) Human Metapneumovir PCR Not detected (Not Detect) Influenza Type A (PCR) Not detected (Not Detect) Influenza Type B (PCR) Not detected (Not Detect) M. pneumoniae (PCR) Not detected (Not Detect) Parainfluenza 1 (PCR) Not detected (Not Detect) Parainfluenza 2 (PCR) Not detected (Not Detect) Parainfluenza 3 (PCR) Not detected (Not Detect) Parainfluenza 4 (PCR) Not detected (Not Detect) RSV (PCR) Not detected (Not Detect) Entero/Rhino (PCR) Not detected (Not Detect) 04/06/21 04/06/21 04/06/21 Range/Units 21:05 21:05 21:05 WBC 17.5 H (4.5-11.0) X10^3/uL RBC 5.10 (4.5-5.9) X10^6/uL Hgb 15.5 (13.5-17.5) g/dL Hct 47.2 (41-53) % MCV 92.6 (80-100) fL MCH 30.5 (26-34) PG MCHC 32.9 (30-36) % RDW 13.0 (11.6-14.8) % Plt Count 342 (150-400) X10^3/uL Neut % (Auto) 95.8 H (50-75) % Lymph % (Auto) 1.6 L (25-40) % [place] % (Auto) 2.3 L (3-14) % Eos % (Auto) 0.0 L (2-4) % Baso % (Auto) 0.3 (0-2) % Neut # (Auto) 32919 H (8897-1455) /uL Lymph # (Auto) 300 L (0045-7680) /uL [place] # (Auto) 400 (0-900) /uL Eos # (Auto) 0 (0-450) /uL Baso # (Auto) 100 (0-100) /uL PT (10.1-12.7) SECONDS INR (0.9-1.3) APTT (26.4-36.2) SECONDS D-Dimer (<230) ng/mL ABG pH (7.35-7.45) ABG pCO2 (35-45) mmHg ABG pO2 (80-100) mmHg ABG HCO3 (22-26) mmol/L ABG Total CO2 (21-31) mmol/L ABG O2 Saturation (95-100) % ABG Base Excess (-2-2) mmol/L FiO2 Sodium 125 L (137-145) mmol/L Potassium 4.9 (3.4-5.1) mmol/L Chloride 90 L (98-107) mmol/L Carbon Dioxide 26 (22-32) mmol/L BUN 26 H (9-20) mg/dL Creatinine 0.89 (0.66-1.25) mg/dL Estimated GFR > 60.0 (>60) mL/min BUN/Creatinine Ratio 29.2 H (6-22) Glucose 263 H (80-110) mg/dL Lactate (0.7-2.1) mmol/L Calcium 9.0 (8.4-10.2) mg/dL Ferritin 415 (18-464) ng/mL Total Bilirubin 1.1 (0.2-1.3) mg/dL AST 43 (17-59) IU/L ALT 83 H (<50) IU/L Alkaline Phosphatase 83 (38-126) U/L Lactate Dehydrogenase (313-618) U/L Total Creatine Kinase < 20 L (55-170) U/L CK-MB (CK-2) TNP CK-MB (CK-2) Rel Index TNP Troponin I < 0.012 (0.01-0.034) ng/mL C-Reactive Protein 1.0 (<1.0) mg/dL NT-Pro-B Natriuret Pep (<450) pg/mL Total Protein 6.9 (6.3-8.2) g/dL Albumin 3.6 (3.5-5.0) g/dL Globulin 3.3 (1.7-4.1) g/dL Albumin/Globulin Ratio 1.1 (1.0-2.8) Procalcitonin 0.08 (<0.5) ng/mL Chlamy pneumoniae PCR (Not Detect) Adenovirus (PCR) (Not Detect) B. pertussis DNA (PCR) (Not Detecte) B.parapertussis DNA PCR (Not Detecte) Coronavirus OC43 (PCR) (Not Detect) Coronavirus HKU1 (PCR) (Not Detect) Coronavirus 229E (PCR) (Not Detect) SARS-CoV-2 (PCR) (Not Detecte) Coronavirus NL63 (PCR) (Not Detect) Human Metapneumovir PCR (Not Detect) Influenza Type A (PCR) (Not Detect) Influenza Type B (PCR) (Not Detect) M. pneumoniae (PCR) (Not Detect) Parainfluenza 1 (PCR) (Not Detect) Parainfluenza 2 (PCR) (Not Detect) Parainfluenza 3 (PCR) (Not Detect) Parainfluenza 4 (PCR) (Not Detect) RSV (PCR) (Not Detect) Entero/Rhino (PCR) (Not Detect) 04/06/21 04/06/21 04/06/21 Range/Units 21:05 21:05 21:05 WBC (4.5-11.0) X10^3/uL RBC (4.5-5.9) X10^6/uL Hgb (13.5-17.5) g/dL Hct (41-53) % MCV (80-100) fL MCH (26-34) PG MCHC (30-36) % RDW (11.6-14.8) % Plt Count (150-400) X10^3/uL Neut % (Auto) (50-75) % Lymph % (Auto) (25-40) % [place] % (Auto) (3-14) % Eos % (Auto) (2-4) % Baso % (Auto) (0-2) % Neut # (Auto) (6927-0436) /uL Lymph # (Auto) (4137-1117) /uL [place] # (Auto) (0-900) /uL Eos # (Auto) (0-450) /uL Baso # (Auto) (0-100) /uL PT 13.9 H (10.1-12.7) SECONDS INR 1.2 (0.9-1.3) APTT 27 (26.4-36.2) SECONDS D-Dimer (<230) ng/mL ABG pH (7.35-7.45) ABG pCO2 (35-45) mmHg ABG pO2 (80-100) mmHg ABG HCO3 (22-26) mmol/L ABG Total CO2 (21-31) mmol/L ABG O2 Saturation (95-100) % ABG Base Excess (-2-2) mmol/L FiO2 Sodium (137-145) mmol/L Potassium (3.4-5.1) mmol/L Chloride (98-107) mmol/L Carbon Dioxide (22-32) mmol/L BUN (9-20) mg/dL Creatinine (0.66-1.25) mg/dL Estimated GFR (>60) mL/min BUN/Creatinine Ratio (6-22) Glucose (80-110) mg/dL Lactate 2.1 (0.7-2.1) mmol/L Calcium (8.4-10.2) mg/dL Ferritin (18-464) ng/mL Total Bilirubin (0.2-1.3) mg/dL AST (17-59) IU/L ALT (<50) IU/L Alkaline Phosphatase (38-126) U/L Lactate Dehydrogenase 876 H (313-618) U/L Total Creatine Kinase (55-170) U/L CK-MB (CK-2) CK-MB (CK-2) Rel Index Troponin I (0.01-0.034) ng/mL C-Reactive Protein (<1.0) mg/dL NT-Pro-B Natriuret Pep 920 H (<450) pg/mL Total Protein (6.3-8.2) g/dL Albumin (3.5-5.0) g/dL Globulin (1.7-4.1) g/dL Albumin/Globulin Ratio (1.0-2.8) Procalcitonin (<0.5) ng/mL Chlamy pneumoniae PCR (Not Detect) Adenovirus (PCR) (Not Detect) B. pertussis DNA (PCR) (Not Detecte) B.parapertussis DNA PCR (Not Detecte) Coronavirus OC43 (PCR) (Not Detect) Coronavirus HKU1 (PCR) (Not Detect) Coronavirus 229E (PCR) (Not Detect) SARS-CoV-2 (PCR) (Not Detecte) Coronavirus NL63 (PCR) (Not Detect) Human Metapneumovir PCR (Not Detect) Influenza Type A (PCR) (Not Detect) Influenza Type B (PCR) (Not Detect) M. pneumoniae (PCR) (Not Detect) Parainfluenza 1 (PCR) (Not Detect) Parainfluenza 2 (PCR) (Not Detect) Parainfluenza 3 (PCR) (Not Detect) Parainfluenza 4 (PCR) (Not Detect) RSV (PCR) (Not Detect) Entero/Rhino (PCR) (Not Detect) 04/06/21 Range/Units 23:30 WBC (4.5-11.0) X10^3/uL RBC (4.5-5.9) X10^6/uL Hgb (13.5-17.5) g/dL Hct (41-53) % MCV (80-100) fL MCH (26-34) PG MCHC (30-36) % RDW (11.6-14.8) % Plt Count (150-400) X10^3/uL Neut % (Auto) (50-75) % Lymph % (Auto) (25-40) % [place] % (Auto) (3-14) % Eos % (Auto) (2-4) % Baso % (Auto) (0-2) % Neut # (Auto) (8762-0894) /uL Lymph # (Auto) (9123-3940) /uL [place] # (Auto) (0-900) /uL Eos # (Auto) (0-450) /uL Baso # (Auto) (0-100) /uL PT (10.1-12.7) SECONDS INR (0.9-1.3) APTT (26.4-36.2) SECONDS D-Dimer (<230) ng/mL ABG pH (7.35-7.45) ABG pCO2 (35-45) mmHg ABG pO2 (80-100) mmHg ABG HCO3 (22-26) mmol/L ABG Total CO2 (21-31) mmol/L ABG O2 Saturation (95-100) % ABG Base Excess (-2-2) mmol/L FiO2 Sodium (137-145) mmol/L Potassium (3.4-5.1) mmol/L Chloride (98-107) mmol/L Carbon Dioxide (22-32) mmol/L BUN (9-20) mg/dL Creatinine (0.66-1.25) mg/dL Estimated GFR (>60) mL/min BUN/Creatinine Ratio (6-22) Glucose (80-110) mg/dL Lactate 1.3 (0.7-2.1) mmol/L Calcium (8.4-10.2) mg/dL Ferritin (18-464) ng/mL Total Bilirubin (0.2-1.3) mg/dL AST (17-59) IU/L ALT (<50) IU/L Alkaline Phosphatase (38-126) U/L Lactate Dehydrogenase (313-618) U/L Total Creatine Kinase (55-170) U/L CK-MB (CK-2) CK-MB (CK-2) Rel Index Troponin I (0.01-0.034) ng/mL C-Reactive Protein (<1.0) mg/dL NT-Pro-B Natriuret Pep (<450) pg/mL Total Protein (6.3-8.2) g/dL Albumin (3.5-5.0) g/dL Globulin (1.7-4.1) g/dL Albumin/Globulin Ratio (1.0-2.8) Procalcitonin (<0.5) ng/mL Chlamy pneumoniae PCR (Not Detect) Adenovirus (PCR) (Not Detect) B. pertussis DNA (PCR) (Not Detecte) B.parapertussis DNA PCR (Not Detecte) Coronavirus OC43 (PCR) (Not Detect) Coronavirus HKU1 (PCR) (Not Detect) Coronavirus 229E (PCR) (Not Detect) SARS-CoV-2 (PCR) (Not Detecte) Coronavirus NL63 (PCR) (Not Detect) Human Metapneumovir PCR (Not Detect) Influenza Type A (PCR) (Not Detect) Influenza Type B (PCR) (Not Detect) M. pneumoniae (PCR) (Not Detect) Parainfluenza 1 (PCR) (Not Detect) Parainfluenza 2 (PCR) (Not Detect) Parainfluenza 3 (PCR) (Not Detect) Parainfluenza 4 (PCR) (Not Detect) RSV (PCR) (Not Detect) Entero/Rhino (PCR) (Not Detect) Imaging Data Chest x-ray: Radiologist's Impression: PROCEDURE:? XR CHEST 1V ? INDICATIONS:? covid hypoxia ? TECHNIQUE:? One view of the chest was acquired.? ? COMPARISON:? [facility], , XR CHEST 1V, 03/25/2021, 20:34. ? FINDINGS:? ? Surgical changes and devices:? Sternal wires and pacer device are noted. ? Lungs and pleura:? Bilateral pulmonary opacities are present most prominent in the right base.? It is overall progressive compared to prior exam. ? Mediastinum:? Mediastinal contours appear normal.? Heart size is normal.? ? Bones and chest wall:? No suspicious bony lesions.? Overlying soft tissues appear unremarkable.? ? IMPRESSION:? Bilateral pulmonary opacities most suggestive of pneumonia. ? ? Dictated by: Khloe Freitas M.D. on 04/06/2021 at 21:36 ? ? CT scan - chest: Radiologist's Impression: PROCEDURE:? CT ANGIO CHEST PE PROTOCOL ? INDICATIONS:? hypoxia, known covid, recent admission ? TECHNIQUE:? After the administration of intravenous contrast, 2 mm thick sections acquired from the pulmonary apices to the posterior costophrenic angles.? 3-dimensional maximum intensity projection (MIP) coronal and sagittal reformats were then acquired through the thorax.? For radiation dose reduction, the following was used:? automated exposure control, adjustment of mA and/or kV according to patient size.? ? COMPARISON:? [facility], CT, ABDOMEN/PELVIS WITH CONTRAST, 04/12/2017, 17:26.? [facility], CR, CHEST 2 VIEW, 11/03/2016, 10:54. ? FINDINGS:? Image quality:? Excellent.? ? Pulmonary arteries:? Pulmonary arteries are normal in size, and demonstrate no intraluminal filling defects to suggest central pulmonary embolism.? ? Lungs and pleura:? Bilateral areas of patchy and confluent opacity are present within the lungs bilaterally.? Minimal effusions are present. ? Mediastinum:? Heart size is enlarged, without pericardial effusion.? No mediastinal or hilar adenopathy.? Thoracic aorta is normal in caliber and enhancement.? Esophagus is normal in caliber, without hiatal hernia.? ? Bones and chest wall:? No suspicious bony lesions.? Ribs and thoracic spine appear intact throughout.? Thyroid gland is unremarkable.? No axillary or supraclavicular adenopathy.? ? Abdomen:? Simple renal cysts are partially visualized.? Otherwise, visualized upper abdominal solid organs appear normal in the early arterial phase of enhancement.? ? IMPRESSION:? ? 1. Bilateral pulmonary opacities most consistent with pneumonia. ? 2. No pulmonary embolism.? ? ? Dictated by: Khloe Freitas M.D. on 04/06/2021 at 21:48 ? ? ECG Data Interpretation: Sinus rhythm rate 81 TX interval 138 QRS 14 right bundle-branch block noted similar to previous EKG MDM Narrative Medical decision making narrative: The patient has known diagnosis of COVID but is well into his COVID shot infection discharged home and is becoming more hypoxic. Worried about other et iology vs worsening code CT angio is negative for pulmonary embolis, more likely worsening COVID. Discussion with patient in regards to code status POLST is filled has a DNR DNI. I did this as a discussion with his son on speaker phone and patient. At this time patient continues to have capacity and understands he certainly does not want intubation. There is no DPOA, he has a son and a daughter. He initially was put on high-flow nasal cannula at 100%. With pronating position, remdesivir and dexamethasone O2 has been weaned to 90%. BNP was also slightly elevated at 920 he was given a small dose of Lasix 20 mg and urinated almost 1 L. This seems to have helped. He is otherwise hemodynamically stable. He was a very difficult IV stick PICC line was placed. Significant bed shortage. Multiple hospitals have been called. 02:00 Dr. Luis, computer support analyst at [facility] has been updated patient's symptoms test results and happily accepted patient. Critical Care Time Critical Care Time Critical Care Time: Yes Total Critical Care Time: 60 Attestation: The high probability of a clinically significant, sudden or life threatening deterioration of the [cardiovascular] system(s) required my full and direct attention, intervention and personal management. The aggregate critical care time was 60 minutes. This time is in addition to time spent performing reported procedures but includes the following: [x] Data Review and interpretation [x] Patient assessment and monitoring of vital signs [x] Documentation [x] Medication orders and management Discharge Plan Departure Patient Disposition: [facility] Clinical Impression: COVID-19, Respiratory failure Prescriptions: No Action aspirin 81 MG tablet,delayed release (DR/EC) 81 mg PO QAM Qty: 0 0RF simvastatin 20 mg tablet 20 mg PO HS Qty: 90 3RF metformin [Glucophage] 500 mg tablet 500 mg PO BIDCC Qty: 180 0RF tamsulosin [Flomax] 0.4 mg Capsule 0.4 mg PO BID Qty: 180 3RF clarithromycin 500 mg tablet 500 mg PO BID 0RF Rx Instructions: x 5 days dexamethasone 2 mg tablet 6 mg PO QAM 0RF Rx Instructions: x 3 days /, 24, 25 montelukast 10 mg tablet 10 mg PO DAILY 0RF diphenhydramine HCl [Benadryl] 25 mg Capsule 25 mg PO BEDTIME 0RF budesonide 0.5 mg/2 mL Suspension For Nebulization 0.5 mg INHALATION Q2HR PRN (Reason: sob) 0RF Referrals: Demetri Ca MD [Primary Care Provider] -
--- NOTE | 2021-04-06 19:50 | DI.CT.S_ITS ---
PROCEDURE: CT ANGIO CHEST PE PROTOCOL INDICATIONS: hypoxia, known covid, recent admission TECHNIQUE: After the administration of intravenous contrast, 2 mm thick sections acquired from the pulmonary apices to the posterior costophrenic angles. 3-dimensional maximum intensity projection (MIP) coronal and sagittal reformats were then acquired through the thorax. For radiation dose reduction, the following was used: automated exposure control, adjustment of mA and/or kV according to patient size. COMPARISON: [facility], CT, ABDOMEN/PELVIS WITH CONTRAST, 04/12/2017, 17:26. [facility], CR, CHEST 2 VIEW, 11/03/2016, 10:54. FINDINGS: Image quality: Excellent. Pulmonary arteries: Pulmonary arteries are normal in size, and demonstrate no intraluminal filling defects to suggest central pulmonary embolism. Lungs and pleura: Bilateral areas of patchy and confluent opacity are present within the lungs bilaterally. Minimal effusions are present. Mediastinum: Heart size is enlarged, without pericardial effusion. No mediastinal or hilar adenopathy. Thoracic aorta is normal in caliber and enhancement. Esophagus is normal in caliber, without hiatal hernia. Bones and chest wall: No suspicious bony lesions. Ribs and thoracic spine appear intact throughout. Thyroid gland is unremarkable. No axillary or supraclavicular adenopathy. Abdomen: Simple renal cysts are partially visualized. Otherwise, visualized upper abdominal solid organs appear normal in the early arterial phase of enhancement. IMPRESSION: 1. Bilateral pulmonary opacities most consistent with pneumonia. 2. No pulmonary embolism. Dictated by: Khloe Freitas M.D. on 04/06/2021 at 21:48 Approved by: Khloe Freitas M.D. on 04/06/2021 at 21:51
--- NOTE | 2021-04-06 19:53 | DI.RAD.S_ITS ---
PROCEDURE: XR CHEST 1V INDICATIONS: covid hypoxia TECHNIQUE: One view of the chest was acquired. COMPARISON: [facility], CR, XR CHEST 1V, 03/25/2021, 20:34. FINDINGS: Surgical changes and devices: Sternal wires and pacer device are noted. Lungs and pleura: Bilateral pulmonary opacities are present most prominent in the right base. It is overall progressive compared to prior exam. Mediastinum: Mediastinal contours appear normal. Heart size is normal. Bones and chest wall: No suspicious bony lesions. Overlying soft tissues appear unremarkable. IMPRESSION: Bilateral pulmonary opacities most suggestive of pneumonia. Dictated by: Khloe Freitas M.D. on 04/06/2021 at 21:36 Approved by: Khloe Freitas M.D. on 04/06/2021 at 21:37
[2021-04-06 21:20] LABS: Add Manual Diff / Slide Review NO; Basophils Absolute Auto 100 /uL (0-100); Basophils Percent Auto 0.3 % (0-2); Eosinophils Absolute Auto 0 /uL (0-450); Hematocrit 47.2 % (41-53); Hemoglobin 15.5 g/dL (13.5-17.5); Lymphocytes Absolute Auto 300 /uL (1100-4500); Lymphocytes Percent Auto 1.6 % (25-40); Mean Corpuscular HGB Conc 32.9 % (30-36); Mean Corpuscular Hemoglobin 30.5 PG (26-34); Mean Corpuscular Volume 92.6 fL (80-100); Monocytes Absolute Auto 400 /uL (0-900); Monocytes Percent Auto 2.3 % (3-14); Neutrophils Absolute Auto 16800 /uL (1500-7000); Neutrophils Percent Auto 95.8 % (50-75); Platelet Count 342 X10^3/uL (150-400); White Blood Cell Count 17.5 X10^3/uL (4.5-11.0)
[2021-04-06 21:26] LABS: Adenovirus Not Detected (Not Detect); B. parapertussis Not Detected (Not Detecte); Bordetella pertussis Not Detected (Not Detecte); Chlamydophila pneumoniae Not Detected (Not Detect); Coronavirus 229E Not Detected (Not Detect); Coronavirus HKU1 Not Detected (Not Detect); Coronavirus NL 63 Not Detected (Not Detect); Coronavirus OC43 Not Detected (Not Detect); Human Metapneumovirus Not Detected (Not Detect); Human Rhinovirus/Enterovirus Not Detected (Not Detect); Influenza A Not Detected (Not Detect); Influenza B Not Detected (Not Detect); Mycoplasma pneumoniae Not Detected (Not Detect); Parainfluenza Virus 1 Not Detected (Not Detect); Parainfluenza Virus 2 Not Detected (Not Detect); Parainfluenza Virus 3 Not Detected (Not Detect); Parainfluenza Virus 4 Not Detected (Not Detect); Respiratory Syncytial Virus Not Detected (Not Detect); SARS- CoV-2 Detected (Not Detecte)
[2021-04-06 21:36] LABS: D Dimer 826 ng/mL (<230)
[2021-04-06 21:41] LABS: INR 1.2 (0.9-1.3); Prothrombin Time 13.9 SECONDS (10.1-12.7)
[2021-04-06 21:44] LABS: Lactate (Lactic Acid) 2.1 mmol/L (0.7-2.1); PTT Partial Thromboplastin Tim 27 SECONDS (26.4-36.2)
[2021-04-06 21:46] LABS: Lactate Dehydrogenase 876 U/L (313-618)
[2021-04-06 21:48] LABS: Alanine Aminotransferase 83 IU/L (<50); Albumin 3.6 g/dL (3.5-5.0); Albumin Globulin Ratio 1.1 (1.0-2.8); Alkaline Phosphatase 83 U/L (38-126); Aspartate Aminotransferase 43 IU/L (17-59); BUN Creatinine Ratio 29.2 (6-22); Bilirubin Total 1.1 mg/dL (0.2-1.3); Blood Urea Nitrogen 26 mg/dL (9-20); Carbon Dioxide 26 mmol/L (22-32); Chloride 90 mmol/L (98-107); Creatine Kinase < 20 U/L (55-170); Estimated Glomerular Filt Rate > 60.0 mL/min (>60); Globulin 3.3 g/dL (1.7-4.1); Glucose 263 mg/dL (80-110); HEMOLYSIS 22 (0-50); Potassium 4.9 mmol/L (3.4-5.1); Sodium 125 mmol/L (137-145); Total Protein 6.9 g/dL (6.3-8.2)
[2021-04-06 21:54] LABS: NT-proBNP (BNP-Adult 18+) 920 pg/mL (<450)
[2021-04-06 21:56] LABS: Troponin I < 0.012 ng/mL (0.01-0.034)
[2021-04-06 22:01] LABS: Fractionated Inspired Oxygen 100; HCO3 ABG 22 mmol/L (22-26); Oxygen Saturation ABG 98 % (95-100); PCO2 ABG 30.9 mmHg (35-45); PO2 ABG 96 mmHg (80-100); TCO2 ABG 23 mmol/L (21-31)
[2021-04-06 22:02] LABS: Procalcitonin 0.08 ng/mL (<0.5)
[2021-04-06 22:02] LABS: pH ABG 7.47 (7.35-7.45)
[2021-04-06] MEDS: FUROSEMIDE 40 MG/4 ML VIAL 20 MG IV (22:09)
[2021-04-06 22:19] LABS: Ferritin 415 ng/mL (18-464)
--- NOTE | 2021-04-06 23:14 | DI.RAD.S_ITS ---
PROCEDURE: XR CHEST FOR PICC 1V INDICATIONS: picc placement TECHNIQUE: One view of the chest was acquired. COMPARISON: [facility], CR, XR CHEST 1V, 04/06/2021, 20:31. FINDINGS: Surgical changes and devices: Median sternotomy wires are present and appear intact. Pacer device noted. A left upper extremity PICC has been placed with the distal tip projecting in the region of the cavoatrial junction. Lungs and pleura: Lungs are clear. No pleural effusions or pneumothorax. Mediastinum: Mediastinal contours appear normal. Heart size is normal. Bones and chest wall: No suspicious bony lesions. Overlying soft tissues appear unremarkable. IMPRESSION: Interval placement of left upper extremity PICC with distal tip projecting in the region of the lower cavoatrial junction. Otherwise, stable cardiopulmonary examination with persistent diffuse bilateral airspace opacities. Dictated by: Colten Arrington M.D. on 04/06/2021 at 23:38 Approved by: Colten Arrington M.D. on 04/06/2021 at 23:39
[2021-04-06 23:15] LABS: Reflexed Lactate in 2 Hours Y
[2021-04-07] VITALS (22 sets, daily range): BP systolic 103–139; BP diastolic 53–68; PULSE 54–79; RESP 16–35; O2SAT 94–98
[2021-04-07 00:07] LABS: Lactate 2HR (Lactic Acid Rflx) 1.3 mmol/L (0.7-2.1)
[2021-04-07] MEDS: REMDESIVIR 200 MG in SODIUM CHLORIDE 0.9% 210 ML 250 ML IV (01:10)
[2021-04-07] MEDS: DEXAMETHASONE 10 MG/ML VIAL 6 MG IV (01:11)
--- NOTE | 2021-04-07 01:24 | PC.NURSE ---
Pt was able to turn to his left, 1/2 to 3/4 prone, O2 sats in mid 90's, Pt O2 had dipped to 86-88% during picc placement prior to turning.
== END 2021-04-07 05:35 | disposition short-term general hospital (02) ==
PROVIDERS: Emergency Provider Emergency Medicine; PCP Internal Medicine
DX: U07.1 COVID-19 (principal); J12.82 Pneumonia due to coronavirus disease 2019; J96.01 Acute respiratory failure with hypoxia; Z66 Do not resuscitate
CPT/HCPCS: 36415; 36569; 36600; 71045; 71275; 80053; 82550; 82728; 82805; 83605; 83615; 83880; 84145; 84484; 85025; 85379; 85610; 85730; 86140; 87040; 87633; 93005; 96365; 96375; 99285; 99291; J1100; J1940; Q9967

== ENCOUNTER → 2021-06-23 10:55 | Outpatient (CLI) | payer OTHER, SELFPAY ==
[2021-03-25 22:38] VITALS: BMI 28.8
[2021-06-23 12:05] LABS: COVID19 -Nasal RAPID Negative (Negative)
== END ==
PROVIDERS: PCP Internal Medicine; Referring Provider Internal Medicine; Visit Provider Internal Medicine
DX: Z20.822 Contact with and (suspected) exposure to COVID-19 (principal)
CPT/HCPCS: 87635; C9803

== ENCOUNTER → 2021-06-24 12:51 | Outpatient (CLI) | payer OTHER, SELFPAY ==
[2021-03-25 22:38] VITALS: BMI 28.8
--- NOTE | 2021-06-30 08:39 | PM.PFT.1 ---
Pulmonary Function Test Referral & Results Date Patient Seen: 06/24/21 Requesting provider: Demetri Ca Indication: Post COVID Results: The spirometry demonstrates an FVC of 1.62 L which is 45% of predicted. The FEV1 was measured at 1.60 L which is 64% of predicted. The FEV1/FVC ratio was 99 which is 138% of predicted. Following the administration of bronchodilator there was in 23% improvement in FEF 25-75% Lung volumes show an SVC of 1.90 L which is 46% of predicted. The diffusing capacity was measured at 11.19 which is 37% of predicted. No hemoglobin value was provided, so no correction for potential anemia could be made, if appropriate. The maximum voluntary ventilation was reduced Interpretation: Study demonstrates mild to moderate obstructive lung disease based on reduction FEV1 although FEV1/FVC ratio is preserved. There is only minimal evidence of any benefit following bronchodilator particularly in small airway flow based on improvement in FEF 25-75% There is a more severe reduction in lung volumes suggesting moderately severe restrictive lung disease which may explain the abnormalities in the FEV1 above There is a modestly severe reduction diffusing capacity suggesting significant disease at the capillary alveolar level
== END ==
PROVIDERS: PCP Internal Medicine; Referring Provider Internal Medicine; Visit Provider Internal Medicine
DX: J44.9 Chronic obstructive pulmonary disease, unspecified (principal); R06.02 Shortness of breath; U07.1 COVID-19
CPT/HCPCS: 94060; 94726; 94729

== ENCOUNTER → 2021-08-24 15:12 | Outpatient (CLI) | payer OTHER, SELFPAY ==
[2021-03-25 22:38] VITALS: BMI 28.8
[2021-08-24 15:45] LABS: Add Manual Diff / Slide Review NO; Basophils Absolute Auto 100 /uL (0-100); Basophils Percent Auto 0.6 % (0-2); Eosinophils Absolute Auto 300 /uL (0-450); Eosinophils Percent Auto 3.7 % (2-4); Hematocrit 41.3 % (41-53); Hemoglobin 13.3 g/dL (13.5-17.5); Lymphocytes Absolute Auto 2900 /uL (1100-4500); Lymphocytes Percent Auto 34.6 % (25-40); Mean Corpuscular HGB Conc 32.3 % (30-36); Mean Corpuscular Hemoglobin 30.2 PG (26-34); Mean Corpuscular Volume 93.4 fL (80-100); Monocytes Absolute Auto 900 /uL (0-900); Monocytes Percent Auto 11.2 % (3-14); Neutrophils Absolute Auto 4200 /uL (1500-7000); Neutrophils Percent Auto 49.9 % (50-75); Platelet Count 232 X10^3/uL (150-400); Red Blood Cell Count 4.42 X10^6/uL (4.5-5.9); Red Cell Distribution Width 13.2 % (11.6-14.8); White Blood Cell Count 8.3 X10^3/uL (4.5-11.0)
[2021-08-24 16:01] LABS: Hemoglobin A1C% w Est Avg Glu 6.8 % (4.0-6.0)
[2021-08-24 16:37] LABS: Alanine Aminotransferase 11 IU/L (<50); Albumin 4.3 g/dL (3.5-5.0); Albumin Globulin Ratio 1.5 (1.0-2.8); Alkaline Phosphatase 68 U/L (38-126); Aspartate Aminotransferase 18 IU/L (17-59); BUN Creatinine Ratio 11.7 (6-22); Bilirubin Total 0.2 mg/dL (0.2-1.3); Blood Urea Nitrogen 12 mg/dL (9-20); Calcium 9.7 mg/dL (8.4-10.2); Carbon Dioxide 32 mmol/L (22-32); Chloride 102 mmol/L (98-107); Estimated Glomerular Filt Rate > 60.0 mL/min (>60); Globulin 2.8 g/dL (1.7-4.1); Glucose 104 mg/dL (80-110); HEMOLYSIS < 15 (0-50); Potassium 4.8 mmol/L (3.4-5.1); Sodium 141 mmol/L (137-145); Total Protein 7.1 g/dL (6.3-8.2)
== END ==
PROVIDERS: PCP Internal Medicine; Referring Provider Internal Medicine; Visit Provider Internal Medicine
DX: E11.9 Type 2 diabetes mellitus without complications (principal); E78.2 Mixed hyperlipidemia
CPT/HCPCS: 36415; 80053; 83036; 85025

== ENCOUNTER → 2021-12-14 12:03 | Outpatient (CLI) | payer OTHER, SELFPAY ==
[2021-03-25 22:38] VITALS: BMI 28.8
--- NOTE | 2021-12-14 12:05 | DI.RAD.S_ITS ---
PROCEDURE: XR FOOT LT MIN 3V INDICATIONS: left great toe pain TECHNIQUE: 3 views of the foot were acquired. COMPARISON: None. FINDINGS: Bones: No fractures or dislocations. No suspicious bony lesions. Soft tissues: No tibiotalar joint effusion. Achilles tendon appears normal. 1st digit soft tissue edema. IMPRESSION: No visualized acute fracture or dislocation. However, if clinical concern and/or pain persist, short interval imaging followup in 7-10 days is recommended, as occult injury cannot be definitively excluded. Dictated by: Khloe Freitas M.D. on 12/14/2021 at 17:34 Approved by: Khloe Freitas M.D. on 12/14/2021 at 17:35
== END ==
PROVIDERS: PCP Internal Medicine; Referring Provider Internal Medicine; Visit Provider Internal Medicine
DX: M79.675 Pain in left toe(s) (principal)
CPT/HCPCS: 73630

== ENCOUNTER → 2022-06-17 14:00 | Outpatient (CLI) | payer OTHER, SELFPAY ==
[2021-03-25 22:38] VITALS: BMI 28.8
[2022-06-17 14:49] LABS: Add Manual Diff / Slide Review NO; Basophils Absolute Auto 0 /uL (0-100); Basophils Percent Auto 0.2 % (0-2); Eosinophils Absolute Auto 0 /uL (0-450); Eosinophils Percent Auto 0.1 % (2-4); Hematocrit 39.3 % (41-53); Hemoglobin 12.9 g/dL (13.5-17.5); Lymphocytes Absolute Auto 1400 /uL (1100-4500); Lymphocytes Percent Auto 15.9 % (25-40); Mean Corpuscular HGB Conc 32.7 % (30-36); Mean Corpuscular Hemoglobin 31.1 PG (26-34); Mean Corpuscular Volume 94.9 fL (80-100); Monocytes Absolute Auto 1300 /uL (0-900); Monocytes Percent Auto 14.3 % (3-14); Neutrophils Absolute Auto 6200 /uL (1500-7000); Neutrophils Percent Auto 69.5 % (50-75); Platelet Count 163 X10^3/uL (150-400); Red Blood Cell Count 4.14 X10^6/uL (4.5-5.9); Red Cell Distribution Width 13.5 % (11.6-14.8); White Blood Cell Count 8.9 X10^3/uL (4.5-11.0)
[2022-06-17 15:06] LABS: Alanine Aminotransferase 14 IU/L (<50); Albumin 3.6 g/dL (3.5-5.0); Albumin Globulin Ratio 1.4 (1.0-2.8); Alkaline Phosphatase 64 U/L (38-126); Aspartate Aminotransferase 17 IU/L (17-59); BUN Creatinine Ratio 14.6 (6-22); Bilirubin Total 0.4 mg/dL (0.2-1.3); Blood Urea Nitrogen 19 mg/dL (9-20); Calcium 8.8 mg/dL (8.4-10.2); Carbon Dioxide 31 mmol/L (22-32); Chloride 97 mmol/L (98-107); Estimated Glomerular Filt Rate 54 mL/min (>60); Globulin 2.6 g/dL (1.7-4.1); Glucose 143 mg/dL (80-110); HEMOLYSIS < 15 (0-50); Potassium 4.1 mmol/L (3.4-5.1); Sodium 136 mmol/L (137-145); Total Protein 6.2 g/dL (6.3-8.2)
== END ==
PROVIDERS: Family Provider Internal Medicine; PCP Internal Medicine; Referring Provider Internal Medicine; Visit Provider Internal Medicine
DX: E11.9 Type 2 diabetes mellitus without complications (principal); E78.2 Mixed hyperlipidemia
CPT/HCPCS: 36415; 80053; 83036; 85025

== ENCOUNTER 2022-07-20 22:33 | Emergency (ER) | payer OTHER, SELFPAY ==
[2021-03-25 22:38] VITALS: BMI 28.8
[2022-07-20 22:43] VITALS: BP 200/91; PULSE 77; RESP 16; TEMP 36.8; O2SAT 98; BMI 24.0
--- NOTE | 2022-07-20 23:20 | DI.RAD.S_ITS ---
PROCEDURE: XR LUMBAR SPINE 2-3V INDICATIONS: fall with L sided lumbar pain TECHNIQUE: 3 views of the lumbar spine were acquired. COMPARISON: None. FINDINGS: Bones: 5 [id number] vertebrae are present. There is minimal retrolisthesis at L1-L2, L2-L3, and L3-L4. There is mild degenerative disc disease in the lower lumbar spine at L4-5 and L5-S1. Mild facet arthropathy also demonstrated in the lower lumbar spine. No definite acute fractures. No vertebral body compression fractures. No suspicious bony lesions. Soft tissues: Overlying bowel gas pattern is normal. No suspicious soft tissue calcifications. IMPRESSION: 1. No definite acute fracture or traumatic subluxation. 2. Mild degenerative disc disease and facet arthropathy in the lower lumbar spine. Dictated by: Gabriel Perry M.D. on 07/20/2022 at 23:47 Approved by: Gabriel Perry M.D. on 07/20/2022 at 23:48
--- NOTE | 2022-07-20 23:20 | ED.FALL ---
HPI - Fall General Chief Complaint: Fall Stated Complaint: GLF Time Seen by Provider: 07/20/22 22:48 Source: patient Mode of arrival: EMS Limitations: no limitations History of Present Illness HPI Narrative: Patient is a 82-year-old male who was brought in by EMS for evaluation of left lower back discomfort. He states that earlier this evening he fell while tripping after trying to remove a flag from his house. He did not hit his head. There was no loss of consciousness. He is no chest pain. No lightheadedness. No neck pain. No extremity pain. He stated that he was able to get up and walk around. As time went on over the past couple hours he has had increasing discomfort in his lower back so decided to come in to be have it evaluated. Related Data Home Medications Medication Instructions Recorded Confirmed aspirin 81 mg tablet,delayed 81 mg PO QAM ##0 10/12/16 06/17/22 release budesonide 0.5 mg/2 mL suspension 0.5 mg inhalation Q2HR PRN sob 04/06/21 06/17/22 for nebulization diphenhydramine HCl 25 mg capsule 25 mg PO BID 12/14/21 06/17/22 (Benadryl) Previous Rx's Medication Instructions Recorded tamsulosin 0.4 mg capsule (Flomax) 0.4 mg PO BID #180 caps 03/30/21 metformin 500 mg tablet 500 mg PO BIDCC #180 tabs 07/01/21 simvastatin 20 mg tablet 20 mg PO HS #90 tabs 07/01/21 lancets (Accu-Chek Softclix #100 ea 11/11/21 Lancets) blood sugar diagnostic (Accu-Chek #100 ea 11/17/21 Guide test strips) blood-glucose meter #1 ea 04/29/22 Allergies Allergy/AdvReac Type Severity Reaction Status Date / Time No Known Drug Allergies Allergy Verified 06/17/22 13:33 Review of Systems Constitutional Constitutional: Reports system reviewed and no additional complaints, except as documented Gastrointestinal Gastrointestinal: Reports system reviewed and no additional complaints, except as documented Genitourinary Genitourinary: Reports system reviewed and no additional complaints, except as documented Musculoskeletal Musculoskeletal: Reports system reviewed and no additional complaints, except as documented Integumentary/Breasts Skin/Breast: Reports system reviewed and no additional complaints, except as documented Hematologic/Lymphatic On Anticoagulants: No Patient History Medical History Aortic valve stenosis Coronary artery disease COVID-19 Diabetes History of GI bleed (08/2011) Hx of small bowel obstruction (01/2015) Mixed hyperlipidemia Surgical History 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) Hx of hernia repair (Unknown) Social History household members: spouse, family and children Smoking Status: Former smoker alcohol intake: current Smoking Status: Former smoker alcohol intake frequency: a few times a week Substance Use Type: does not use Exam Initial Vital Signs Initial Vital Signs: Vital Signs Temperature 98.2 F 07/20/22 22:43 Pulse Rate 77 07/20/22 22:43 Respiratory Rate 16 07/20/22 22:43 Blood Pressure 200/91 H 07/20/22 22:43 Pulse Oximetry 98 07/20/22 22:43 Oxygen Delivery Method Room Air 07/20/22 22:43 Const General: cooperative, comfortable and No ill appearing [facility] Head: normal to inspection and normocephalic Back/Spine/Pelvis Thoracic/Lumbar Spine: paraspinal tenderness and No lumbar spinal tenderness Skin General: no rashes or lesions noted Neuro General: patient alert and patient awake Extrem General: normal to inspection Course Orders Ordered: ED Orders 07/20/22 23:20 XR lumbar spine 2-3V Stat Discontinued Medications Ibuprofen (Ibuprofen 400 Mg Tablet) 400 mg PO NOW ONE Stop: 07/21/22 00:08 Last Admin: 07/21/22 00:17 Dose: 400 mg Documented By: AMU Vital Signs Vital signs: Vital Signs - 8 hr 07/20/22 22:43 Temperature 98.2 F Pulse Rate 77 Respiratory Rate 16 Blood Pressure 200/91 H Pulse Oximetry 98 Oxygen Delivery Method Room Air MDM - Fall Imaging Data lumbar spine X-ray: Radiologist's Impression: PROCEDURE:? XR LUMBAR SPINE 2-3V ? INDICATIONS:? fall with L sided lumbar pain ? TECHNIQUE:? 3 views of the lumbar spine were acquired.? ? COMPARISON:? None. ? FINDINGS:? ? Bones:? 5 [id number] vertebrae are present.? There is minimal retrolisthesis at L1-L2, L2-L3, and L3-L4.? There is mild degenerative disc disease in the lower lumbar spine at L4-5 and L5-S1.? Mild facet arthropathy also demonstrated in the lower lumbar spine.? No definite acute fractures.? No vertebral body compression fractures.? No suspicious bony lesions.? ? Soft tissues:? Overlying bowel gas pattern is normal.? No suspicious soft tissue calcifications.? ? ? IMPRESSION:? ? 1.? No definite acute fracture or traumatic subluxation. ? 2. Mild degenerative disc disease and facet arthropathy in the lower lumbar spine. [facility] Narrative Medical decision making narrative: Patient does have a benign exam. He has been ambulatory here in the emergency department. He is tender the paraspinal region in the left lumbar. X-ray shows no acute fracture. There are no skin changes of the area. He is no neck pain. No other injuries from the event. Low suspicion for hip fracture. Will hold on further workup. Will discharge patient home with conservative measures. He expressed understanding and agreement with plan. Discharge Plan Departure Patient Disposition: Home Clinical Impression: Pain in lower back Instructions: Low Back Pain Activity Restrictions/Additional Instructions: The x-ray today did not show any signs of a fracture. He would no restrictions on her activities. You can continue to take Tylenol or ibuprofen for discomfort. Return to the emergency department for any new symptoms. Prescriptions: No Action aspirin 81 MG tablet,delayed release (DR/EC) 81 mg PO QAM Qty: 0 metformin 500 mg tablet 500 mg PO BIDCC Qty: 180 3RF simvastatin 20 mg tablet 20 mg PO HS Qty: 90 3RF (DME) lancets [Accu-Chek Softclix Lancets] [facility] [place] See Rx Instructions .Route Qty: 100 3RF Rx Instructions: Use to check BS 1x daily (DME) Accu-Chek Guide test strips Strip See Rx Instructions .Route Qty: 100 6RF Rx Instructions: Use to check BS 1-2x daily or as directed by PCP ([facility] [place]) blood-glucose meter [facility] [place] See Rx Instructions .Route Qty: 1 0RF Rx Instructions: Use to check BS 1x daily. tamsulosin [Flomax] 0.4 mg Capsule 0.4 mg PO BID Qty: 180 3RF budesonide 0.5 mg/2 mL Suspension For Nebulization 0.5 mg INHALATION Q2HR PRN (Reason: sob) diphenhydramine HCl [Benadryl] 25 mg capsule 25 mg PO BID Referrals: Demetri Ca MD [Primary Care Provider] - Stand Alone Forms: Patient Portal/API
[2022-07-21] MEDS: IBUPROFEN 400 MG TABLET PO (00:17)
== END 2022-07-21 00:20 | disposition home or self-care (01) ==
PROVIDERS: Emergency Provider Emergency Medicine; Family Provider Internal Medicine; PCP Internal Medicine
DX: M54.50 Low back pain, unspecified (principal)
CPT/HCPCS: 72100; 99283

== ENCOUNTER 2022-11-02 12:00 | Outpatient (RCR) | payer OTHER, SELFPAY ==
[2021-03-25 22:38] VITALS: BMI 28.8
--- NOTE | 2022-05-11 15:08 | PT.OIE ---
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 Email: [email or web address] Physical Therapy Initial Evaluation PT-OP-A Visit Information Start: 05/11/22 14:17 Freq: Status: Active Protocol: Document 05/11/22 12:00 DCW (Rec: 05/11/22 14:25 DC [id number]) Out-Patient Physical Therapy Visit Information Visit Information Visit Type Initial Evaluation Visit Start Time 12:00 Visit Stop Time 12:45 Total Visit Minutes 45 Visit Number 1 Number of SAP GATHERER Visits 0 Evaluation Information Evaluation Date 05/11/22 PT-OP-B Current Condition Start: 05/11/22 14:17 Freq: Status: Active Protocol: Document 05/11/22 12:00 DCW (Rec: 05/11/22 15:08 DC [id number]) Current Condition History of Current Condition Onset Date 3 month history Current Complaints bilateral shoulder pain and stiffness History of Current Condition Pt is an 82 year old male presenting with a three month history of bilateral shoulder pain and stiffness, right worse than left. Pt unsure of any specific injury, but does note that there have been multiple occasions when he had to help his get up off the floor, which may have hurt his shoulder. Pt reports significant limitations reaching both up and back, especially putting on his jacket. Notes he has not had any imaging done of his shoulders, but he spoke with a friend of his who had to go through PT for shoulder pain, and he came out a new man, so he's looking forward to getting to do PT and helping to improve his shoulder function. PT-OP-C Subjective Start: 05/11/22 14:17 Freq: Status: Active Protocol: Document 05/11/22 12:00 DCW (Rec: 05/11/22 14:25 DCW [id number]) OP-PT Subjective Patient Comments Patient Comments Getting my jacket off isn't a problem, it's getting it back on. Patient Reported Progress Same Patient Questionnaires Quick Dash- Upper Extremity Quick Dash UE Score 11.36% PT-OP-E Functional Tests Start: 05/11/22 14:17 Freq: Status: Active Protocol: Document 05/11/22 12:00 DCW (Rec: 05/11/22 14:25 DCW [id number]) Functional Tests Apley's Scratch Test Action 1- Left Crosses midline Action 1- Right Crosses midline Action 2- Left Suboccipital Action 2- Right Suboccipital Action 3- Left L2 Action 3- Right R PSIS PT-OP-F Manual Assessment Start: 05/11/22 14:17 Freq: Status: Active Protocol: Document 05/11/22 12:00 DCW (Rec: 05/11/22 14:42 DCW [id number]) Manual Assessments Soft Tissue Assessment Soft Tissue Mobility Assessment Moderate-severe tone bilateral upper traps, levators, parascapulars PT-OP-K Range of Motion Start: 05/11/22 14:17 Freq: Status: Active Protocol: Document 05/11/22 12:00 DCW (Rec: 05/11/22 14:42 DCW [id number]) Shoulder Goniometric Range of Motion Shoulder Right Passive Shoulder ROM WFL No Testing Position Supine Flexion 120 Abduction 88 External Rotation at 0 degrees Abduction 45 Right Active Shoulder ROM WFL No Testing Position Sitting Flexion 81 Abduction 68 External Rotation at 0 degrees Abduction 36 Internal Rotation Behind Back (text) R PSIS Left Passive Shoulder ROM WFL No Testing Position Supine Flexion 121 Abduction 91 External Rotation at 0 degrees Abduction 48 Left Active Shoulder ROM WFL No Testing Position Sitting Flexion 106 Abduction 76 External Rotation at 0 degrees Abduction 40 Internal Rotation Behind Back (text) L2 PT-OP-L Special Tests Start: 05/11/22 14:17 Freq: Status: Active Protocol: Document 05/11/22 12:00 DCW (Rec: 05/11/22 14:42 DCW [id number]) Special Tests Shoulder Special Tests Speed's Biceps Test Results Positive bilaterally Passive ER Rotator Cuff Test Results Positive bilaterally Lift-Off Rotator Cuff Test Results Positive bilaterally Solitario Marcus Impingement Test Results Positive bilaterally Grind Labrum Test Results Negative Empty Can Test Results Positive bilaterally Drop Arm Rotator Cuff Test Results Positive bilaterally Clunk Test Test Results Negative Belly Press Test Results Positive bilaterally Apprehension Test Test Results Positive bilaterally AC Joint Compression Test Results Negative PT-OP-M Strength Start: 05/11/22 14:17 Freq: Status: Active Protocol: Document 05/11/22 12:00 DCW (Rec: 05/11/22 14:42 [facility] [id number]) Shoulder Strength Shoulder Manual Muscle Testing Right Flexion 2 Poor Abduction (C5) 2 Poor External Rotation 4- Good- Internal Rotation 4- Good- Left Flexion 2 Poor Abduction (C5) 2 Poor External Rotation 4- Good- Internal Rotation 4- Good- PT-OP-Q Treatments Start: 05/11/22 14:17 Freq: Status: Active Protocol: Document 05/11/22 12:00 DCW (Rec: 05/11/22 14:19 DCW [id number]) Therapeutic Exercises Standing Exercises Rows Standing Exercise Name Rows Side bilateral Resistance Lv 2 Adduction Standing Exercise Name Shoulder Adduction Side bilateral Resistance Lv 2 Extension Standing Exercise Name Shoulder Extension Side bilateral Resistance Lv 2 PT-OP-T Assessment and Plan Start: 05/11/22 14:17 Freq: Status: Active Protocol: Document 05/11/22 12:00 DCW (Rec: 05/11/22 15:08 DC [id number]) Physical Therapy Assessment Rehab Potential Rehabilitation Potential Fair Evaluation Complexity Number of Personal Factors/Comorbidities 3 or More Number of Body Systems Impaired 3 Clinical Presentation at Evaluation Evolving Impairments Impairments Functional Activities, Functional Mobility,Pain, Posture,ROM,Soft Tissue Mobility,Strength,Tone Goals Two Impairment Significant limitations with bilateral shoulder ROM Bomb Loader Goal (LTG) Pt to demonstrate increase in shoulder ROM to at least 130? flexion and 120? abduction bilaterally in order to improve ability to reach up onto higher shelves. LTG Duration 07/12/22 One Impairment Pt does not have an appropriate home exercise program Short Term Goal (STG) Pt to be independent and compliant with an appropriate HEP STG Duration 06/11/22 Assessment Summary Assessment Pt presents with signs and symptoms that are difficult to DDx bilaterally. Pt shoulders show significant limitations in ROM and strength, as well as pain, however special testing is almost all entirely positive, making it very difficult to narrow down symptoms to any specific cause . Pt does not appear to have any labral symptoms, but otherwise all rotator cuff and biceps testing was positive bilaterally. Pt should benefit from skilled therapy focusing on improving bilateral shoulder strength and joint mobility, in order to both decrease symptoms and improve ability to potentially narrow down cause of ongoing symptoms . If pt does not make appropriate progress over the next 3-4 week, he may benefit from imaging in order to help DDx cause of symptoms. Physical Therapy Plan Frequency and Duration Frequency of Treatment 2x/Week Plan of Care Start Date 05/11/22 Plan of Care End Date 07/12/22 Therapeutic Interventions Therapeutic Interventions Home Exercise Program,Joint Mobilizations,Manual Therapy, Patient/Caregiver Education, Self-Care/Home Management,Soft Tissue Mobilization, Therapeutic Activities, Therapeutic Exercises Modalities Cold Pack/Ice Massage,Hot Packs Next Visit Focus/Plan Next Note Type Treatment Note Next Visit Plan Shoulder ROM, pulleys, strengthening, posture training
--- NOTE | 2022-05-11 15:08 | PT.OPPOC ---
Physical, Occupational & Speech Therapy At [facility] Current Diagnoses Pain in right shoulder (05/11/22) Pain in left shoulder (05/11/22) Stiffness of right shoulder, not elsewhere classified (05/11/22) Stiffness of left shoulder, not elsewhere classified (05/11/22) Visit Care Team Role Provider Type Demetri Ca MD Attending Provider Physician Family Provider Primary Care Provider Referring Provider Specialty: Internal Medicine Address: [address] [place] [address], [address], [facility] Email: [email or web address] Plan Of Care PT-OP-T Assessment and Plan Start: 05/11/22 14:17 Freq: Status: Active Protocol: Document 05/11/22 12:00 DCW (Rec: 05/11/22 15:08 DCW [id number]) Physical Therapy Assessment Rehab Potential Rehabilitation Potential Fair Evaluation Complexity Number of Personal Factors/Comorbidities 3 or More Number of Body Systems Impaired 3 Clinical Presentation at Evaluation Evolving Impairments Impairments Functional Activities, Functional Mobility,Pain, Posture,ROM,Soft Tissue Mobility,Strength,Tone Goals Two Impairment Significant limitations with bilateral shoulder ROM 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 flexion and 120? abduction bilaterally in order to improve ability to reach up onto higher shelves. LTG Duration 07/12/22 One Impairment Pt does not have an appropriate home exercise program Short Term Goal (STG) Pt to be independent and compliant with an appropriate HEP STG Duration 06/11/22 Assessment Summary Assessment Pt presents with signs and symptoms that are difficult to DDx bilaterally. Pt shoulders show significant limitations in ROM and strength, as well as pain, however special testing is almost all entirely positive, making it very difficult to narrow down symptoms to any specific cause . Pt does not appear to have any labral symptoms, but otherwise all rotator cuff and biceps testing was positive bilaterally. Pt should benefit from skilled therapy focusing on improving bilateral shoulder strength and joint mobility, in order to both decrease symptoms and improve ability to potentially narrow down cause of ongoing symptoms . If pt does not make appropriate progress over the next 3-4 week, he may benefit from imaging in order to help DDx cause of symptoms. Physical Therapy Plan Frequency and Duration Frequency of Treatment 2x/Week Plan of Care Start Date 05/11/22 Plan of Care End Date 07/12/22 Therapeutic Interventions Therapeutic Interventions Home Exercise Program,Joint Mobilizations,Manual Therapy, Patient/Caregiver Education, Self-Care/Home Management,Soft Tissue Mobilization, Therapeutic Activities, Therapeutic Exercises Modalities Cold Pack/Ice Massage,Hot Packs Next Visit Focus/Plan Next Note Type Treatment Note Next Visit Plan Shoulder ROM, pulleys, strengthening, posture training Plan of Care Dates Plan of Care Start Date 05/11/22 Plan of Care End Date 07/12/22 Electronically Signed by: Kaiden Billings, PT 05/11/22 3145 If you are in agreement with this Plan of Care, please return a signed and dated copy. I have reviewed this Plan of Care and certify that the skilled therapy services above are required to meet the patient?s needs. Physician Signature Date Printed Name and Credentials Clinical Instructor Signature Printed Name and Credentials
--- NOTE | 2022-05-13 09:42 | PT.OTN ---
Current Diagnoses Pain in right shoulder (05/13/22) Pain in left shoulder (05/13/22) Stiffness of right shoulder, not elsewhere classified (05/13/22) Stiffness of left shoulder, not elsewhere classified (05/13/22) Physical Therapy Treatment Note PT-OP-A Visit Information Start: 05/11/22 14:17 Freq: Status: Active Protocol: Document 05/13/22 09:00 DCW (Rec: 05/13/22 09:41 DCW [id number]) Out-Patient Physical Therapy Visit Information Visit Information Visit Type Treatment Note Visit Start Time 09:00 Visit Stop Time 09:45 Total Visit Minutes 45 Visit Number 2 Number of CREASING MACHINE OPERATOR Visits 0 Evaluation Information Evaluation Date 05/11/22 PT-OP-B Current Condition Start: 05/11/22 14:17 Freq: Status: Active Protocol: Document 05/11/22 12:00 DCW (Rec: 05/11/22 15:08 DCW [id number]) Current Condition History of Current Condition Onset Date 3 month history Current Complaints bilateral shoulder pain and stiffness History of Current Condition Pt is an 82 year old male presenting with a three month history of bilateral shoulder pain and stiffness, right worse than left. Pt unsure of any specific injury, but does note that there have been multiple occasions when he had to help his get up off the floor, which may have hurt his shoulder. Pt reports significant limitations reaching both up and back, especially putting on his jacket. Notes he has not had any imaging done of his shoulders, but he spoke with a friend of his who had to go through PT for shoulder pain, and he came out a new man, so he's looking forward to getting to do PT and helping to improve his shoulder function. PT-OP-C Subjective Start: 05/11/22 14:17 Freq: Status: Active Protocol: Document 05/13/22 09:00 DCW (Rec: 05/13/22 09:41 DCW [id number]) OP-PT Subjective Patient Comments Patient Comments I already did thos exercises this morning. PT-OP-E Functional Tests Start: 05/11/22 14:17 Freq: Status: Active Protocol: Document 05/11/22 12:00 DCW (Rec: 05/11/22 14:25 DCW [id number]) Functional Tests Ronnieey's Scratch Test Action 1- Left Crosses midline Action 1- Right Crosses midline Action 2- Left Suboccipital Action 2- Right Suboccipital Action 3- Left L2 Action 3- Right R PSIS PT-OP-F Manual Assessment Start: 05/11/22 14:17 Freq: Status: Active Protocol: Document 05/11/22 12:00 DCW (Rec: 05/11/22 14:42 DCW [id number]) Manual Assessments Soft Tissue Assessment Soft Tissue Mobility Assessment Moderate-severe tone bilateral upper traps, levators, parascapulars PT-OP-K Range of Motion Start: 05/11/22 14:17 Freq: Status: Active Protocol: Document 05/11/22 12:00 DCW (Rec: 05/11/22 14:42 DCW [id number]) Shoulder Goniometric Range of Motion Shoulder Right Passive Shoulder ROM WFL No Testing Position Supine Flexion 120 Abduction 88 External Rotation at 0 degrees Abduction 45 Right Active Shoulder ROM WFL No Testing Position Sitting Flexion 81 Abduction 68 External Rotation at 0 degrees Abduction 36 Internal Rotation Behind Back (text) R PSIS Left Passive Shoulder ROM WFL No Testing Position Supine Flexion 121 Abduction 91 External Rotation at 0 degrees Abduction 48 Left Active Shoulder ROM WFL No Testing Position Sitting Flexion 106 Abduction 76 External Rotation at 0 degrees Abduction 40 Internal Rotation Behind Back (text) L2 PT-OP-L Special Tests Start: 05/11/22 14:17 Freq: Status: Active Protocol: Document 05/11/22 12:00 DCW (Rec: 05/11/22 14:42 DCW [id number]) Special Tests Shoulder Special Tests Speed's Biceps Test Results Positive bilaterally Passive ER Rotator Cuff Test Results Positive bilaterally Lift-Off Rotator Cuff Test Results Positive bilaterally Solitario Marcus Impingement Test Results Positive bilaterally Grind Labrum Test Results Negative Empty Can Test Results Positive bilaterally Drop Arm Rotator Cuff Test Results Positive bilaterally Clunk Test Test Results Negative Belly Press Test Results Positive bilaterally Apprehension Test Test Results Positive bilaterally AC Joint Compression Test Results Negative PT-OP-M Strength Start: 05/11/22 14:17 Freq: Status: Active Protocol: Document 05/11/22 12:00 DCW (Rec: 05/11/22 14:42 DCW [id number]) Shoulder Strength Shoulder Manual Muscle Testing Right Flexion 2 Poor Abduction (C5) 2 Poor External Rotation 4- Good- Internal Rotation 4- Good- Left Flexion 2 Poor Abduction (C5) 2 Poor External Rotation 4- Good- Internal Rotation 4- Good- PT-OP-Q Treatments Start: 05/11/22 14:17 Freq: Status: Active Protocol: Document 05/13/22 09:00 DCW (Rec: 05/13/22 09:41 [facility] [id number]) Therapeutic Exercises Supine Exercises External Rotation Supine Exercise Name PROM /c PVC Side bilateral Shoulder Flexion Supine Exercise Name Shoulder Flexion Side bilateral Resistance PVC /c 4# Sitting Exercises Pulleys Sitting Exercise Name GH Flexion, Abduction Side bilateral Standing Exercises Pulleys Standing Exercise Name GH IR Pulleys Side bilateral Manual Therapy Treatment Soft Tissue Mobilization Upper Trap Body Location B UT, Scalenes, SCM Mobilization Type Sustained Pressure,Trigger Point Release Body Position Supine Parascapulars Body Location B parascapular musculature Mobilization Type Sustained Pressure,Trigger Point Release Body Position Supine PT-OP-T Assessment and Plan Start: 05/11/22 14:17 Freq: Status: Active Protocol: Document 05/13/22 09:00 DCW (Rec: 05/13/22 09:41 [facility] [id number]) Physical Therapy Assessment Impairments Impairments Functional Activities, Functional Mobility,Pain, Posture,ROM,Soft Tissue Mobility,Strength,Tone Goals Two Impairment Significant limitations with bilateral shoulder ROM Retirement Goal (LTG) Pt to demonstrate increase in shoulder ROM to at least 130? flexion and 120? abduction bilaterally in order to improve ability to reach up onto higher shelves. LTG Duration 07/12/22 One Impairment Pt does not have an appropriate home exercise program Short Term Goal (STG) Pt to be independent and compliant with an appropriate HEP STG Duration 06/11/22 Assessment Summary Assessment Pt tolerated treatment fairly well today, still quite limited with UE ROM bilaterally, but was able to show some improvement after stretching and using pulleys. Physical Therapy Plan Frequency and Duration Frequency of Treatment 2x/Week Plan of Care Start Date 05/11/22 Plan of Care End Date 07/12/22 Therapeutic Interventions Therapeutic Interventions Home Exercise Program,Joint Mobilizations,Manual Therapy, Patient/Caregiver Education, Self-Care/Home Management,Soft Tissue Mobilization, Therapeutic Activities, Therapeutic Exercises Modalities Cold Pack/Ice Massage,Hot Packs Next Visit Focus/Plan Next Note Type Treatment Note Next Visit Plan Shoulder ROM, pulleys, strengthening, posture training
--- NOTE | 2022-05-18 12:01 | PT.OTN ---
Current Diagnoses Pain in right shoulder (05/18/22) Pain in left shoulder (05/18/22) Stiffness of right shoulder, not elsewhere classified (05/18/22) Stiffness of left shoulder, not elsewhere classified (05/18/22) Physical Therapy Treatment Note PT-OP-A Visit Information Start: 05/11/22 14:17 Freq: Status: Active Protocol: Document 05/18/22 11:20 DCW (Rec: 05/18/22 12:01 DCW [id number]) Out-Patient Physical Therapy Visit Information Visit Information Visit Type Treatment Note Visit Start Time 11:20 Visit Stop Time 12:00 Total Visit Minutes 40 Visit Number 3 Number of ELECTRO OPTICS ENGINEER Visits 0 Evaluation Information Evaluation Date 05/11/22 PT-OP-B Current Condition Start: 05/11/22 14:17 Freq: Status: Active Protocol: Document 05/11/22 12:00 DCW (Rec: 05/11/22 15:08 DCW [id number]) Current Condition History of Current Condition Onset Date 3 month history Current Complaints bilateral shoulder pain and stiffness History of Current Condition Pt is an 82 year old male presenting with a three month history of bilateral shoulder pain and stiffness, right worse than left. Pt unsure of any specific injury, but does note that there have been multiple occasions when he had to help his get up off the floor, which may have hurt his shoulder. Pt reports significant limitations reaching both up and back, especially putting on his jacket. Notes he has not had any imaging done of his shoulders, but he spoke with a friend of his who had to go through PT for shoulder pain, and he came out a new man, so he's looking forward to getting to do PT and helping to improve his shoulder function. PT-OP-C Subjective Start: 05/11/22 14:17 Freq: Status: Active Protocol: Document 05/18/22 11:20 DCW (Rec: 05/18/22 12:01 DCW [id number]) OP-PT Subjective Patient Comments Patient Comments Pt notes his shoulder is a tad bit better, feels he can reach back a little easier. PT-OP-E Functional Tests Start: 05/11/22 14:17 Freq: Status: Active Protocol: Document 05/11/22 12:00 DCW (Rec: 05/11/22 14:25 DCW [id number]) Functional Tests Apley's Scratch Test Action 1- Left Crosses midline Action 1- Right Crosses midline Action 2- Left Suboccipital Action 2- Right Suboccipital Action 3- Left L2 Action 3- Right R PSIS PT-OP-F Manual Assessment Start: 05/11/22 14:17 Freq: Status: Active Protocol: Document 05/11/22 12:00 DCW (Rec: 05/11/22 14:42 DCW [id number]) Manual Assessments Soft Tissue Assessment Soft Tissue Mobility Assessment Moderate-severe tone bilateral upper traps, levators, parascapulars PT-OP-K Range of Motion Start: 05/11/22 14:17 Freq: Status: Active Protocol: Document 05/11/22 12:00 DCW (Rec: 05/11/22 14:42 DCW [id number]) Shoulder Goniometric Range of Motion Shoulder Right Passive Shoulder ROM WFL No Testing Position Supine Flexion 120 Abduction 88 External Rotation at 0 degrees Abduction 45 Right Active Shoulder ROM WFL No Testing Position Sitting Flexion 81 Abduction 68 External Rotation at 0 degrees Abduction 36 Internal Rotation Behind Back (text) R PSIS Left Passive Shoulder ROM WFL No Testing Position Supine Flexion 121 Abduction 91 External Rotation at 0 degrees Abduction 48 Left Active Shoulder ROM WFL No Testing Position Sitting Flexion 106 Abduction 76 External Rotation at 0 degrees Abduction 40 Internal Rotation Behind Back (text) L2 PT-OP-L Special Tests Start: 05/11/22 14:17 Freq: Status: Active Protocol: Document 05/11/22 12:00 DCW (Rec: 05/11/22 14:42 DCW [id number]) Special Tests Shoulder Special Tests Speed's Biceps Test Results Positive bilaterally Passive ER Rotator Cuff Test Results Positive bilaterally Lift-Off Rotator Cuff Test Results Positive bilaterally Solitario Marcus Impingement Test Results Positive bilaterally Grind Labrum Test Results Negative Empty Can Test Results Positive bilaterally Drop Arm Rotator Cuff Test Results Positive bilaterally Clunk Test Test Results Negative Belly Press Test Results Positive bilaterally Apprehension Test Test Results Positive bilaterally AC Joint Compression Test Results Negative PT-OP-M Strength Start: 05/11/22 14:17 Freq: Status: Active Protocol: Document 05/11/22 12:00 DCW (Rec: 05/11/22 14:42 DCW [id number]) Shoulder Strength Shoulder Manual Muscle Testing Right Flexion 2 Poor Abduction (C5) 2 Poor External Rotation 4- Good- Internal Rotation 4- Good- Left Flexion 2 Poor Abduction (C5) 2 Poor External Rotation 4- Good- Internal Rotation 4- Good- PT-OP-Q Treatments Start: 05/11/22 14:17 Freq: Status: Active Protocol: Document 05/18/22 11:20 DCW (Rec: 05/18/22 12:01 DCW [id number]) Cardio Equipment Upper Body Ergometer (UBE) Duration (Minutes) 5 RPM 60 Seat Position 11 Height 3.5 Therapeutic Exercises Supine Exercises Serratus punch Supine Exercise Name Serratus punch Side bilateral Equipment Used PVC Standing Exercises Pulleys Standing Exercise Name GH IR Pulleys Side bilateral Manual Therapy Treatment Soft Tissue Mobilization Upper Trap Body Location B UT, Scalenes, SCM Mobilization Type Sustained Pressure,Trigger Point Release Body Position Supine Parascapulars Body Location B parascapular musculature Mobilization Type Sustained Pressure,Trigger Point Release Body Position Supine Joint Mobilizations GH Joint B GH mobilization Direction Inferior Grade III Body Position Supine PT-OP-T Assessment and Plan Start: 05/11/22 14:17 Freq: Status: Active Protocol: Document 05/18/22 11:20 DCW (Rec: 05/18/22 12:01 DCW [id number]) Physical Therapy Assessment Impairments Impairments Functional Activities, Functional Mobility,Pain, Posture,ROM,Soft Tissue Mobility,Strength,Tone Goals Two Impairment Significant limitations with bilateral shoulder ROM Project Management Goal (LTG) Pt to demonstrate increase in shoulder ROM to at least 130? flexion and 120? abduction bilaterally in order to improve ability to reach up onto higher shelves. LTG Duration 07/12/22 One Impairment Pt does not have an appropriate home exercise program Short Term Goal (STG) Pt to be independent and compliant with an appropriate HEP STG Duration 06/11/22 Assessment Summary Assessment Pt continues to be more limited with IR/ER movements, improving flexion and abduction. Pt tolerated treatment better today. Physical Therapy Plan Frequency and Duration Frequency of Treatment 2x/Week Plan of Care Start Date 05/11/22 Plan of Care End Date 07/12/22 Therapeutic Interventions Therapeutic Interventions Home Exercise Program,Joint Mobilizations,Manual Therapy, Patient/Caregiver Education, Self-Care/Home Management,Soft Tissue Mobilization, Therapeutic Activities, Therapeutic Exercises Modalities Cold Pack/Ice Massage,Hot Packs Next Visit Focus/Plan Next Note Type Treatment Note Next Visit Plan Shoulder ROM, pulleys, strengthening, posture training
--- NOTE | 2022-05-20 12:03 | PT.OTN ---
Current Diagnoses Pain in right shoulder (05/20/22) Pain in left shoulder (05/20/22) Stiffness of right shoulder, not elsewhere classified (05/20/22) Stiffness of left shoulder, not elsewhere classified (05/20/22) Physical Therapy Treatment Note PT-OP-A Visit Information Start: 05/11/22 14:17 Freq: Status: Active Protocol: Document 05/20/22 11:20 DCW (Rec: 05/20/22 12:03 DCW [id number]) Out-Patient Physical Therapy Visit Information Visit Information Visit Type Treatment Note Visit Start Time 11:20 Visit Stop Time 12:00 Total Visit Minutes 40 Visit Number 4 Number of MIMEOGRAPHER Visits 0 Evaluation Information Evaluation Date 05/11/22 PT-OP-B Current Condition Start: 05/11/22 14:17 Freq: Status: Active Protocol: Document 05/11/22 12:00 DCW (Rec: 05/11/22 15:08 DCW [id number]) Current Condition History of Current Condition Onset Date 3 month history Current Complaints bilateral shoulder pain and stiffness History of Current Condition Pt is an 82 year old male presenting with a three month history of bilateral shoulder pain and stiffness, right worse than left. Pt unsure of any specific injury, but does note that there have been multiple occasions when he had to help his get up off the floor, which may have hurt his shoulder. Pt reports significant limitations reaching both up and back, especially putting on his jacket. Notes he has not had any imaging done of his shoulders, but he spoke with a friend of his who had to go through PT for shoulder pain, and he came out a new man, so he's looking forward to getting to do PT and helping to improve his shoulder function. PT-OP-C Subjective Start: 05/11/22 14:17 Freq: Status: Active Protocol: Document 05/20/22 11:20 DCW (Rec: 05/20/22 12:03 DCW [id number]) OP-PT Subjective Patient Comments Patient Comments Better, slowly but surely. PT-OP-E Functional Tests Start: 05/11/22 14:17 Freq: Status: Active Protocol: Document 05/11/22 12:00 DCW (Rec: 05/11/22 14:25 DCW [id number]) Functional Tests Apley's Scratch Test Action 1- Left Crosses midline Action 1- Right Crosses midline Action 2- Left Suboccipital Action 2- Right Suboccipital Action 3- Left L2 Action 3- Right R PSIS PT-OP-F Manual Assessment Start: 05/11/22 14:17 Freq: Status: Active Protocol: Document 05/11/22 12:00 DCW (Rec: 05/11/22 14:42 DCW [id number]) Manual Assessments Soft Tissue Assessment Soft Tissue Mobility Assessment Moderate-severe tone bilateral upper traps, levators, parascapulars PT-OP-K Range of Motion Start: 05/11/22 14:17 Freq: Status: Active Protocol: Document 05/11/22 12:00 DCW (Rec: 05/11/22 14:42 DCW [id number]) Shoulder Goniometric Range of Motion Shoulder Right Passive Shoulder ROM WFL No Testing Position Supine Flexion 120 Abduction 88 External Rotation at 0 degrees Abduction 45 Right Active Shoulder ROM WFL No Testing Position Sitting Flexion 81 Abduction 68 External Rotation at 0 degrees Abduction 36 Internal Rotation Behind Back (text) R PSIS Left Passive Shoulder ROM WFL No Testing Position Supine Flexion 121 Abduction 91 External Rotation at 0 degrees Abduction 48 Left Active Shoulder ROM WFL No Testing Position Sitting Flexion 106 Abduction 76 External Rotation at 0 degrees Abduction 40 Internal Rotation Behind Back (text) L2 PT-OP-L Special Tests Start: 05/11/22 14:17 Freq: Status: Active Protocol: Document 05/11/22 12:00 DCW (Rec: 05/11/22 14:42 DCW [id number]) Special Tests Shoulder Special Tests Speed's Biceps Test Results Positive bilaterally Passive ER Rotator Cuff Test Results Positive bilaterally Lift-Off Rotator Cuff Test Results Positive bilaterally Solitario Marcus Impingement Test Results Positive bilaterally Grind Labrum Test Results Negative Empty Can Test Results Positive bilaterally Drop Arm Rotator Cuff Test Results Positive bilaterally Clunk Test Test Results Negative Belly Press Test Results Positive bilaterally Apprehension Test Test Results Positive bilaterally AC Joint Compression Test Results Negative PT-OP-M Strength Start: 05/11/22 14:17 Freq: Status: Active Protocol: Document 05/11/22 12:00 DCW (Rec: 05/11/22 14:42 DCW [id number]) Shoulder Strength Shoulder Manual Muscle Testing Right Flexion 2 Poor Abduction (C5) 2 Poor External Rotation 4- Good- Internal Rotation 4- Good- Left Flexion 2 Poor Abduction (C5) 2 Poor External Rotation 4- Good- Internal Rotation 4- Good- PT-OP-Q Treatments Start: 05/11/22 14:17 Freq: Status: Active Protocol: Document 05/20/22 11:20 DCW (Rec: 05/20/22 12:03 DCW [id number]) Cardio Equipment Upper Body Ergometer (UBE) Duration (Minutes) 5 RPM 60 Seat Position 11 Height 3.5 Therapeutic Exercises Standing Exercises Press Standing Exercise Name Press Side bilateral Resistance 5# Equipment Used PVC Flexion Standing Exercise Name Flexion Side bilateral Resistance 5# Equipment Used PVC Pulleys Standing Exercise Name GH IR Pulleys Side bilateral Manual Therapy Treatment Soft Tissue Mobilization Upper Trap Body Location B UT, Scalenes, SCM Mobilization Type Sustained Pressure,Trigger Point Release Body Position Supine Parascapulars Body Location B parascapular musculature Mobilization Type Sustained Pressure,Trigger Point Release Body Position Supine Joint Mobilizations GH Joint B GH mobilization Direction Inferior Grade III Body Position Supine PT-OP-T Assessment and Plan Start: 05/11/22 14:17 Freq: Status: Active Protocol: Document 05/20/22 11:20 DCW (Rec: 05/20/22 12:03 DCW [id number]) Physical Therapy Assessment Impairments Impairments Functional Activities, Functional Mobility,Pain, Posture,ROM,Soft Tissue Mobility,Strength,Tone Goals Two Impairment Significant limitations with bilateral shoulder ROM All Source Intelligence Analyst Goal (LTG) Pt to demonstrate increase in shoulder ROM to at least 130? flexion and 120? abduction bilaterally in order to improve ability to reach up onto higher shelves. LTG Duration 07/12/22 One Impairment Pt does not have an appropriate home exercise program Short Term Goal (STG) Pt to be independent and compliant with an appropriate HEP STG Duration 06/11/22 Assessment Summary Assessment Pt tolerated treatment well, getting some increased motion bilaterally, although still complains of pain and tightness when moving into ER. Physical Therapy Plan Frequency and Duration Frequency of Treatment 2x/Week Plan of Care Start Date 05/11/22 Plan of Care End Date 07/12/22 Therapeutic Interventions Therapeutic Interventions Home Exercise Program,Joint Mobilizations,Manual Therapy, Patient/Caregiver Education, Self-Care/Home Management,Soft Tissue Mobilization, Therapeutic Activities, Therapeutic Exercises Modalities Cold Pack/Ice Massage,Hot Packs Next Visit Focus/Plan Next Note Type Treatment Note Next Visit Plan Shoulder ROM, pulleys, strengthening, posture training
--- NOTE | 2022-05-27 12:01 | PT.OTN ---
Current Diagnoses Pain in right shoulder (05/27/22) Pain in left shoulder (05/27/22) Stiffness of right shoulder, not elsewhere classified (05/27/22) Stiffness of left shoulder, not elsewhere classified (05/27/22) Physical Therapy Treatment Note PT-OP-A Visit Information Start: 05/11/22 14:17 Freq: Status: Active Protocol: Document 05/27/22 11:20 DCW (Rec: 05/27/22 12:01 DCW [id number]) Out-Patient Physical Therapy Visit Information Visit Information Visit Type Treatment Note Visit Start Time 11:20 Visit Stop Time 12:00 Total Visit Minutes 40 Visit Number 5 Number of CLOCK AND WATCH HANDS DIPPER Visits 0 Evaluation Information Evaluation Date 05/11/22 PT-OP-B Current Condition Start: 05/11/22 14:17 Freq: Status: Active Protocol: Document 05/11/22 12:00 DCW (Rec: 05/11/22 15:08 DCW [id number]) Current Condition History of Current Condition Onset Date 3 month history Current Complaints bilateral shoulder pain and stiffness History of Current Condition Pt is an 82 year old male presenting with a three month history of bilateral shoulder pain and stiffness, right worse than left. Pt unsure of any specific injury, but does note that there have been multiple occasions when he had to help his get up off the floor, which may have hurt his shoulder. Pt reports significant limitations reaching both up and back, especially putting on his jacket. Notes he has not had any imaging done of his shoulders, but he spoke with a friend of his who had to go through PT for shoulder pain, and he came out a new man, so he's looking forward to getting to do PT and helping to improve his shoulder function. PT-OP-C Subjective Start: 05/11/22 14:17 Freq: Status: Active Protocol: Document 05/27/22 11:20 DCW (Rec: 05/27/22 12:01 DCW [id number]) OP-PT Subjective Patient Comments Patient Comments About the same as last week, maybe a tad better. PT-OP-E Functional Tests Start: 05/11/22 14:17 Freq: Status: Active Protocol: Document 05/11/22 12:00 DCW (Rec: 05/11/22 14:25 DCW [id number]) Functional Tests Ronnieey's Scratch Test Action 1- Left Crosses midline Action 1- Right Crosses midline Action 2- Left Suboccipital Action 2- Right Suboccipital Action 3- Left L2 Action 3- Right R PSIS PT-OP-F Manual Assessment Start: 05/11/22 14:17 Freq: Status: Active Protocol: Document 05/11/22 12:00 DCW (Rec: 05/11/22 14:42 DCW [id number]) Manual Assessments Soft Tissue Assessment Soft Tissue Mobility Assessment Moderate-severe tone bilateral upper traps, levators, parascapulars PT-OP-K Range of Motion Start: 05/11/22 14:17 Freq: Status: Active Protocol: Document 05/11/22 12:00 DCW (Rec: 05/11/22 14:42 DCW [id number]) Shoulder Goniometric Range of Motion Shoulder Right Passive Shoulder ROM WFL No Testing Position Supine Flexion 120 Abduction 88 External Rotation at 0 degrees Abduction 45 Right Active Shoulder ROM WFL No Testing Position Sitting Flexion 81 Abduction 68 External Rotation at 0 degrees Abduction 36 Internal Rotation Behind Back (text) R PSIS Left Passive Shoulder ROM WFL No Testing Position Supine Flexion 121 Abduction 91 External Rotation at 0 degrees Abduction 48 Left Active Shoulder ROM WFL No Testing Position Sitting Flexion 106 Abduction 76 External Rotation at 0 degrees Abduction 40 Internal Rotation Behind Back (text) L2 PT-OP-L Special Tests Start: 05/11/22 14:17 Freq: Status: Active Protocol: Document 05/11/22 12:00 DCW (Rec: 05/11/22 14:42 DCW [id number]) Special Tests Shoulder Special Tests Speed's Biceps Test Results Positive bilaterally Passive ER Rotator Cuff Test Results Positive bilaterally Lift-Off Rotator Cuff Test Results Positive bilaterally Solitario Marcus Impingement Test Results Positive bilaterally Grind Labrum Test Results Negative Empty Can Test Results Positive bilaterally Drop Arm Rotator Cuff Test Results Positive bilaterally Clunk Test Test Results Negative Belly Press Test Results Positive bilaterally Apprehension Test Test Results Positive bilaterally AC Joint Compression Test Results Negative PT-OP-M Strength Start: 05/11/22 14:17 Freq: Status: Active Protocol: Document 05/11/22 12:00 DCW (Rec: 05/11/22 14:42 DCW [id number]) Shoulder Strength Shoulder Manual Muscle Testing Right Flexion 2 Poor Abduction (C5) 2 Poor External Rotation 4- Good- Internal Rotation 4- Good- Left Flexion 2 Poor Abduction (C5) 2 Poor External Rotation 4- Good- Internal Rotation 4- Good- PT-OP-Q Treatments Start: 05/11/22 14:17 Freq: Status: Active Protocol: Document 05/27/22 11:20 DCW (Rec: 05/27/22 12:01 DCW [id number]) Cardio Equipment Upper Body Ergometer (UBE) Duration (Minutes) 5 RPM 60 Seat Position 11 Height 3.5 Therapeutic Exercises Standing Exercises Press Standing Exercise Name Press Side bilateral Resistance 10# Equipment Used PVC Flexion Standing Exercise Name Flexion Side bilateral Resistance 10# Equipment Used PVC Pulleys Standing Exercise Name GH IR Pulleys Side bilateral Other Exercises Resisted Ambulation Other Exercise Name Resisted UE side-stepping Resistance Green Manual Therapy Treatment Soft Tissue Mobilization Upper Trap Body Location B UT, Scalenes, SCM Mobilization Type Sustained Pressure,Trigger Point Release Body Position Supine Parascapulars Body Location B parascapular musculature Mobilization Type Sustained Pressure,Trigger Point Release Body Position Supine Joint Mobilizations GH Joint B GH mobilization Direction Inferior Grade III Body Position Supine PT-OP-T Assessment and Plan Start: 05/11/22 14:17 Freq: Status: Active Protocol: Document 05/27/22 11:20 DCW (Rec: 05/27/22 12:01 DCW [id number]) Physical Therapy Assessment Impairments Impairments Functional Activities, Functional Mobility,Pain, Posture,ROM,Soft Tissue Mobility,Strength,Tone Goals Two Impairment Significant limitations with bilateral shoulder ROM Gas Transfer Operator Goal (LTG) Pt to demonstrate increase in shoulder ROM to at least 130? flexion and 120? abduction bilaterally in order to improve ability to reach up onto higher shelves. LTG Duration 07/12/22 One Impairment Pt does not have an appropriate home exercise program Short Term Goal (STG) Pt to be independent and compliant with an appropriate HEP STG Duration 06/11/22 Assessment Summary Assessment Pt experiencing some tenderness in distal upper arms today bilaterally with passive ER stretching, but overall showing good progress with tolerating increased ROM. Physical Therapy Plan Frequency and Duration Frequency of Treatment 2x/Week Plan of Care Start Date 05/11/22 Plan of Care End Date 07/12/22 Therapeutic Interventions Therapeutic Interventions Home Exercise Program,Joint Mobilizations,Manual Therapy, Patient/Caregiver Education, Self-Care/Home Management,Soft Tissue Mobilization, Therapeutic Activities, Therapeutic Exercises Modalities Cold Pack/Ice Massage,Hot Packs Next Visit Focus/Plan Next Note Type Treatment Note Next Visit Plan Shoulder ROM, pulleys, strengthening, posture training
--- NOTE | 2022-05-30 12:03 | PT.OTN ---
Current Diagnoses Pain in right shoulder (05/30/22) Pain in left shoulder (05/30/22) Stiffness of right shoulder, not elsewhere classified (05/30/22) Stiffness of left shoulder, not elsewhere classified (05/30/22) Physical Therapy Treatment Note PT-OP-A Visit Information Start: 05/11/22 14:17 Freq: Status: Active Protocol: Document 05/30/22 11:20 DCW (Rec: 05/30/22 12:03 DCW [id number]) Out-Patient Physical Therapy Visit Information Visit Information Visit Type Treatment Note Visit Start Time 11:20 Visit Stop Time 12:00 Total Visit Minutes 40 Visit Number 6 Number of DIGITAL CONTROLS TECHNICAL OFFICER Visits 0 Evaluation Information Evaluation Date 05/11/22 PT-OP-B Current Condition Start: 05/11/22 14:17 Freq: Status: Active Protocol: Document 05/11/22 12:00 DCW (Rec: 05/11/22 15:08 DCW [id number]) Current Condition History of Current Condition Onset Date 3 month history Current Complaints bilateral shoulder pain and stiffness History of Current Condition Pt is an 82 year old male presenting with a three month history of bilateral shoulder pain and stiffness, right worse than left. Pt unsure of any specific injury, but does note that there have been multiple occasions when he had to help his get up off the floor, which may have hurt his shoulder. Pt reports significant limitations reaching both up and back, especially putting on his jacket. Notes he has not had any imaging done of his shoulders, but he spoke with a friend of his who had to go through PT for shoulder pain, and he came out a new man, so he's looking forward to getting to do PT and helping to improve his shoulder function. PT-OP-C Subjective Start: 05/11/22 14:17 Freq: Status: Active Protocol: Document 05/30/22 11:20 DCW (Rec: 05/30/22 12:03 DCW [id number]) OP-PT Subjective Patient Comments Patient Comments It's better, but it still lets me know it's there. PT-OP-E Functional Tests Start: 05/11/22 14:17 Freq: Status: Active Protocol: Document 05/11/22 12:00 DCW (Rec: 05/11/22 14:25 DCW [id number]) Functional Tests Apley's Scratch Test Action 1- Left Crosses midline Action 1- Right Crosses midline Action 2- Left Suboccipital Action 2- Right Suboccipital Action 3- Left L2 Action 3- Right R PSIS PT-OP-F Manual Assessment Start: 05/11/22 14:17 Freq: Status: Active Protocol: Document 05/11/22 12:00 DCW (Rec: 05/11/22 14:42 DCW [id number]) Manual Assessments Soft Tissue Assessment Soft Tissue Mobility Assessment Moderate-severe tone bilateral upper traps, levators, parascapulars PT-OP-K Range of Motion Start: 05/11/22 14:17 Freq: Status: Active Protocol: Document 05/11/22 12:00 DCW (Rec: 05/11/22 14:42 DCW [id number]) Shoulder Goniometric Range of Motion Shoulder Right Passive Shoulder ROM WFL No Testing Position Supine Flexion 120 Abduction 88 External Rotation at 0 degrees Abduction 45 Right Active Shoulder ROM WFL No Testing Position Sitting Flexion 81 Abduction 68 External Rotation at 0 degrees Abduction 36 Internal Rotation Behind Back (text) R PSIS Left Passive Shoulder ROM WFL No Testing Position Supine Flexion 121 Abduction 91 External Rotation at 0 degrees Abduction 48 Left Active Shoulder ROM WFL No Testing Position Sitting Flexion 106 Abduction 76 External Rotation at 0 degrees Abduction 40 Internal Rotation Behind Back (text) L2 PT-OP-L Special Tests Start: 05/11/22 14:17 Freq: Status: Active Protocol: Document 05/11/22 12:00 DCW (Rec: 05/11/22 14:42 DCW [id number]) Special Tests Shoulder Special Tests Speed's Biceps Test Results Positive bilaterally Passive ER Rotator Cuff Test Results Positive bilaterally Lift-Off Rotator Cuff Test Results Positive bilaterally Solitario Marcus Impingement Test Results Positive bilaterally Grind Labrum Test Results Negative Empty Can Test Results Positive bilaterally Drop Arm Rotator Cuff Test Results Positive bilaterally Clunk Test Test Results Negative Belly Press Test Results Positive bilaterally Apprehension Test Test Results Positive bilaterally AC Joint Compression Test Results Negative PT-OP-M Strength Start: 05/11/22 14:17 Freq: Status: Active Protocol: Document 05/11/22 12:00 DCW (Rec: 05/11/22 14:42 DCW [id number]) Shoulder Strength Shoulder Manual Muscle Testing Right Flexion 2 Poor Abduction (C5) 2 Poor External Rotation 4- Good- Internal Rotation 4- Good- Left Flexion 2 Poor Abduction (C5) 2 Poor External Rotation 4- Good- Internal Rotation 4- Good- PT-OP-Q Treatments Start: 05/11/22 14:17 Freq: Status: Active Protocol: Document 05/30/22 11:20 DCW (Rec: 05/30/22 12:03 DCW [id number]) Cardio Equipment Upper Body Ergometer (UBE) Duration (Minutes) 5 RPM 60 Seat Position 11 Height 3.5 Therapeutic Exercises Standing Exercises Press Standing Exercise Name Press Side bilateral Resistance 10# Equipment Used PVC Flexion Standing Exercise Name Flexion Side bilateral Resistance 10# Equipment Used PVC Pulleys Standing Exercise Name GH IR Pulleys Side bilateral Extension Standing Exercise Name Shoulder Extension /c PVC Side bilateral Resistance 10# Other Exercises Resisted Ambulation Other Exercise Name Resisted UE side-stepping Resistance Blue Manual Therapy Treatment Soft Tissue Mobilization Upper Trap Body Location B UT, Scalenes, SCM Mobilization Type Sustained Pressure,Trigger Point Release Body Position Supine Parascapulars Body Location B parascapular musculature Mobilization Type Sustained Pressure,Trigger Point Release Body Position Supine Joint Mobilizations GH Joint B GH mobilization Direction Inferior Grade III Body Position Supine PT-OP-T Assessment and Plan Start: 05/11/22 14:17 Freq: Status: Active Protocol: Document 05/30/22 11:20 DCW (Rec: 05/30/22 12:03 DCW [id number]) Physical Therapy Assessment Impairments Impairments Functional Activities, Functional Mobility,Pain, Posture,ROM,Soft Tissue Mobility,Strength,Tone Goals Two Impairment Significant limitations with bilateral shoulder ROM Mcfp Goal (LTG) Pt to demonstrate increase in shoulder ROM to at least 130? flexion and 120? abduction bilaterally in order to improve ability to reach up onto higher shelves. LTG Duration 07/12/22 One Impairment Pt does not have an appropriate home exercise program Short Term Goal (STG) Pt to be independent and compliant with an appropriate HEP STG Duration 06/11/22 Assessment Summary Assessment Pt feeling like his shoulder is looser, able to move around much better, especially his left shoulder, right continues to lag behind more with soreness and decreased IR. Physical Therapy Plan Frequency and Duration Frequency of Treatment 2x/Week Plan of Care Start Date 05/11/22 Plan of Care End Date 07/12/22 Therapeutic Interventions Therapeutic Interventions Home Exercise Program,Joint Mobilizations,Manual Therapy, Patient/Caregiver Education, Self-Care/Home Management,Soft Tissue Mobilization, Therapeutic Activities, Therapeutic Exercises Modalities Cold Pack/Ice Massage,Hot Packs Next Visit Focus/Plan Next Note Type Treatment Note Next Visit Plan Shoulder ROM, pulleys, strengthening, posture training
--- NOTE | 2022-06-03 11:57 | PT.OTN ---
Current Diagnoses Pain in right shoulder (06/03/22) Pain in left shoulder (06/03/22) Stiffness of right shoulder, not elsewhere classified (06/03/22) Stiffness of left shoulder, not elsewhere classified (06/03/22) Physical Therapy Treatment Note PT-OP-A Visit Information Start: 05/11/22 14:17 Freq: Status: Active Protocol: Document 06/03/22 11:15 DCW (Rec: 06/03/22 11:57 DCW [id number]) Out-Patient Physical Therapy Visit Information Visit Information Visit Type Treatment Note Visit Start Time 11:15 Visit Stop Time 12:00 Total Visit Minutes 45 Visit Number 7 Number of PHOTO FINISH PHOTOGRAPHER Visits 0 Evaluation Information Evaluation Date 05/11/22 PT-OP-B Current Condition Start: 05/11/22 14:17 Freq: Status: Active Protocol: Document 05/11/22 12:00 DCW (Rec: 05/11/22 15:08 DCW [id number]) Current Condition History of Current Condition Onset Date 3 month history Current Complaints bilateral shoulder pain and stiffness History of Current Condition Pt is an 82 year old male presenting with a three month history of bilateral shoulder pain and stiffness, right worse than left. Pt unsure of any specific injury, but does note that there have been multiple occasions when he had to help his get up off the floor, which may have hurt his shoulder. Pt reports significant limitations reaching both up and back, especially putting on his jacket. Notes he has not had any imaging done of his shoulders, but he spoke with a friend of his who had to go through PT for shoulder pain, and he came out a new man, so he's looking forward to getting to do PT and helping to improve his shoulder function. PT-OP-C Subjective Start: 05/11/22 14:17 Freq: Status: Active Protocol: Document 06/03/22 11:15 DCW (Rec: 06/03/22 11:57 DCW [id number]) OP-PT Subjective Patient Comments Patient Comments It's getting there, but it's not where I'd like it to be yet. PT-OP-E Functional Tests Start: 05/11/22 14:17 Freq: Status: Active Protocol: Document 05/11/22 12:00 DCW (Rec: 05/11/22 14:25 DCW [id number]) Functional Tests Apley's Scratch Test Action 1- Left Crosses midline Action 1- Right Crosses midline Action 2- Left Suboccipital Action 2- Right Suboccipital Action 3- Left L2 Action 3- Right R PSIS PT-OP-F Manual Assessment Start: 05/11/22 14:17 Freq: Status: Active Protocol: Document 05/11/22 12:00 DCW (Rec: 05/11/22 14:42 DCW [id number]) Manual Assessments Soft Tissue Assessment Soft Tissue Mobility Assessment Moderate-severe tone bilateral upper traps, levators, parascapulars PT-OP-K Range of Motion Start: 05/11/22 14:17 Freq: Status: Active Protocol: Document 05/11/22 12:00 DCW (Rec: 05/11/22 14:42 DCW [id number]) Shoulder Goniometric Range of Motion Shoulder Right Passive Shoulder ROM WFL No Testing Position Supine Flexion 120 Abduction 88 External Rotation at 0 degrees Abduction 45 Right Active Shoulder ROM WFL No Testing Position Sitting Flexion 81 Abduction 68 External Rotation at 0 degrees Abduction 36 Internal Rotation Behind Back (text) R PSIS Left Passive Shoulder ROM WFL No Testing Position Supine Flexion 121 Abduction 91 External Rotation at 0 degrees Abduction 48 Left Active Shoulder ROM WFL No Testing Position Sitting Flexion 106 Abduction 76 External Rotation at 0 degrees Abduction 40 Internal Rotation Behind Back (text) L2 PT-OP-L Special Tests Start: 05/11/22 14:17 Freq: Status: Active Protocol: Document 05/11/22 12:00 DCW (Rec: 05/11/22 14:42 DCW [id number]) Special Tests Shoulder Special Tests Speed's Biceps Test Results Positive bilaterally Passive ER Rotator Cuff Test Results Positive bilaterally Lift-Off Rotator Cuff Test Results Positive bilaterally Solitario Marcus Impingement Test Results Positive bilaterally Grind Labrum Test Results Negative Empty Can Test Results Positive bilaterally Drop Arm Rotator Cuff Test Results Positive bilaterally Clunk Test Test Results Negative Belly Press Test Results Positive bilaterally Apprehension Test Test Results Positive bilaterally AC Joint Compression Test Results Negative PT-OP-M Strength Start: 05/11/22 14:17 Freq: Status: Active Protocol: Document 05/11/22 12:00 DCW (Rec: 05/11/22 14:42 DCW [id number]) Shoulder Strength Shoulder Manual Muscle Testing Right Flexion 2 Poor Abduction (C5) 2 Poor External Rotation 4- Good- Internal Rotation 4- Good- Left Flexion 2 Poor Abduction (C5) 2 Poor External Rotation 4- Good- Internal Rotation 4- Good- PT-OP-Q Treatments Start: 05/11/22 14:17 Freq: Status: Active Protocol: Document 06/03/22 11:15 DCW (Rec: 06/03/22 11:57 DCW [id number]) Cardio Equipment Upper Body Ergometer (UBE) Duration (Minutes) 6 RPM 60 Seat Position 11 Height 3.5 Therapeutic Exercises Sitting Exercises Shoulder ER/IR Sitting Exercise Name ER/IR in 90/90 Side bilateral Resistance 4.4# Green ball Standing Exercises Press Standing Exercise Name Press Side bilateral Resistance 10# Equipment Used PVC Pulleys Standing Exercise Name GH IR Pulleys Side bilateral Other Exercises Resisted Ambulation Other Exercise Name Resisted UE side-stepping Resistance Blue Manual Therapy Treatment Soft Tissue Mobilization Upper Trap Body Location B UT, Scalenes, SCM Mobilization Type Sustained Pressure,Trigger Point Release Body Position Supine Parascapulars Body Location B parascapular musculature Mobilization Type Sustained Pressure,Trigger Point Release Body Position Supine Joint Mobilizations GH Joint B GH mobilization Direction Inferior Grade III Body Position Supine PT-OP-T Assessment and Plan Start: 05/11/22 14:17 Freq: Status: Active Protocol: Document 06/03/22 11:15 DCW (Rec: 06/03/22 11:57 DCW [id number]) Physical Therapy Assessment Impairments Impairments Functional Activities, Functional Mobility,Pain, Posture,ROM,Soft Tissue Mobility,Strength,Tone Goals Two Impairment Significant limitations with bilateral shoulder ROM Grinder [employer] Goal (LTG) Pt to demonstrate increase in shoulder ROM to at least 130? flexion and 120? abduction bilaterally in order to improve ability to reach up onto higher shelves. LTG Duration 07/12/22 One Impairment Pt does not have an appropriate home exercise program Short Term Goal (STG) Pt to be independent and compliant with an appropriate HEP STG Duration 06/11/22 Assessment Summary Assessment Plan to continue with ongoing skilled PT, pt making good overall progress, although still experiencing pain with some motions, mostly ER/IR on right shoulder and when trying to sleep on his side. Physical Therapy Plan Frequency and Duration Frequency of Treatment 2x/Week Plan of Care Start Date 05/11/22 Plan of Care End Date 07/12/22 Therapeutic Interventions Therapeutic Interventions Home Exercise Program,Joint Mobilizations,Manual Therapy, Patient/Caregiver Education, Self-Care/Home Management,Soft Tissue Mobilization, Therapeutic Activities, Therapeutic Exercises Modalities Cold Pack/Ice Massage,Hot Packs Next Visit Focus/Plan Next Note Type Treatment Note Next Visit Plan Shoulder ROM, pulleys, strengthening, posture training
--- NOTE | 2022-07-13 12:00 | PT.OPPN ---
Current Diagnoses Pain in right shoulder (07/13/22) Pain in left shoulder (07/13/22) Stiffness of right shoulder, not elsewhere classified (07/13/22) Stiffness of left shoulder, not elsewhere classified (07/13/22) Physical Therapy Progress Note PT-OP-A Visit Information Start: 05/11/22 14:17 Freq: Status: Active Protocol: Document 07/13/22 11:15 DCW (Rec: 07/13/22 12:00 DCW [id number]) Out-Patient Physical Therapy Visit Information Visit Information Visit Type Progress Note Visit Start Time 11:15 Visit Stop Time 12:00 Total Visit Minutes 45 Visit Number 8 Number of BLOCKER AND CUTTER CONTACT LENS Visits 0 Evaluation Information Evaluation Date 05/11/22 PT-OP-B Current Condition Start: 05/11/22 14:17 Freq: Status: Active Protocol: Document 05/11/22 12:00 DCW (Rec: 05/11/22 15:08 DCW [id number]) Current Condition History of Current Condition Onset Date 3 month history Current Complaints bilateral shoulder pain and stiffness History of Current Condition Pt is an 82 year old male presenting with a three month history of bilateral shoulder pain and stiffness, right worse than left. Pt unsure of any specific injury, but does note that there have been multiple occasions when he had to help his get up off the floor, which may have hurt his shoulder. Pt reports significant limitations reaching both up and back, especially putting on his jacket. Notes he has not had any imaging done of his shoulders, but he spoke with a friend of his who had to go through PT for shoulder pain, and he came out a new man, so he's looking forward to getting to do PT and helping to improve his shoulder function. PT-OP-C Subjective Start: 05/11/22 14:17 Freq: Status: Active Protocol: Document 07/13/22 11:15 DCW (Rec: 07/13/22 12:00 DCW [id number]) OP-PT Subjective Patient Comments Patient Comments Pt notes that while he is seeing improvment bilaterally, the left has improved quite a bit more than the right. PT-OP-E Functional Tests Start: 05/11/22 14:17 Freq: Status: Active Protocol: Document 07/13/22 11:15 DCW (Rec: 07/13/22 11:36 DCW [id number]) Functional Tests Apley's Scratch Test Action 1: The subject is instructed to touch the opposite shoulder with his/her hand. This motion checks Glenohumeral adduction, internal rotation , horizontal adduction and scapular protraction Action 2: The subject is instructed to place his/her arm overhead and reach behind the neck to touch his/her upper back. This motion checks Glenohumeral abduction, external rotation and scapular upward rotation and elevation. Action 3: The subject puts his/her hand on the lower back and reaches upward as far as possible. This motion checks glenohumeral adduction, internal rotation and scapular retraction with downward rotation Action 1- Left Posterior opposite shoulder Action 1- Right Anterior opposite shoulder Action 2- Left C7 Action 2- Right C4 Action 3- Left T10 Action 3- Right L5 PT-OP-F Manual Assessment Start: 05/11/22 14:17 Freq: Status: Active Protocol: Document 07/13/22 11:15 DCW (Rec: 07/13/22 11:36 DC [id number]) Manual Assessments Soft Tissue Assessment Soft Tissue Mobility Assessment Moderate tone right upper traps, levators, parascapulars , mild-moderate tone left upper traps, levators, parascapulars PT-OP-K Range of Motion Start: 05/11/22 14:17 Freq: Status: Active Protocol: Document 07/13/22 11:15 DCW (Rec: 07/13/22 11:36 DCW [id number]) Shoulder Goniometric Range of Motion Shoulder Measured in Degrees Right Passive Shoulder ROM WFL No Testing Position Supine Flexion 128 Abduction 99 External Rotation at 0 degrees Abduction 56 Right Active Shoulder ROM WFL No Testing Position Sitting Flexion 93 Abduction 92 External Rotation at 0 degrees Abduction 45 Internal Rotation Behind Back (text) L5 Left Passive Shoulder ROM WFL No Testing Position Supine Flexion 127 Abduction 122 External Rotation at 0 degrees Abduction 53 Left Active Shoulder ROM WFL No Testing Position Sitting Flexion 118 Abduction 105 External Rotation at 0 degrees Abduction 49 Internal Rotation Behind Back (text) T10 PT-OP-L Special Tests Start: 05/11/22 14:17 Freq: Status: Active Protocol: Document 07/13/22 11:15 DCW (Rec: 07/13/22 11:36 [facility] [id number]) Special Tests Shoulder Special Tests Speed's Biceps Test Results Positive R Passive ER Rotator Cuff Test Results Positive bilaterally Lift-Off Rotator Cuff Test Results Positive bilaterally Solitario Marcus Impingement Test Results Positive bilaterally Grind Labrum Test Results Negative Empty Can Test Results Positive bilaterally Drop Arm Rotator Cuff Test Results Negative Clunk Test Test Results Negative Belly Press Test Results Positive R Apprehension Test Test Results Positive bilaterally AC Joint Compression Test Results Negative PT-OP-M Strength Start: 05/11/22 14:17 Freq: Status: Active Protocol: Document 07/13/22 11:15 DCW (Rec: 07/13/22 11:36 DCW [id number]) Shoulder Strength Shoulder Manual Muscle Testing Right Flexion 3+ Fair+ Abduction (C5) 2+ Poor+ External Rotation 4- Good- Internal Rotation 4+ Good+ Left Flexion 4- Good- Abduction (C5) 3- Fair- External Rotation 4+ Good+ Internal Rotation 4+ Good+ PT-OP-T Assessment and Plan Start: 05/11/22 14:17 Freq: Status: Active Protocol: Document 07/13/22 11:15 DCW (Rec: 07/13/22 12:00 DCW [id number]) Physical Therapy Assessment Impairments Impairments Functional Activities, Functional Mobility,Pain, Posture,ROM,Soft Tissue Mobility,Strength,Tone Goals Two Impairment Significant limitations with bilateral shoulder ROM Mcfp Goal (LTG) Pt to demonstrate increase in shoulder ROM to at least 130? flexion and 120? abduction bilaterally in order to improve ability to reach up onto higher shelves. LTG Duration 09/12/22 - Improving One Impairment Pt does not have an appropriate home exercise program Short Term Goal (STG) Pt to be independent and compliant with an appropriate HEP STG Duration 08/13/22 Assessment Summary Assessment Pt showing very good progress overall, has improved bilaterally with ROM and functional motion, right still noticeably worse than left. Gained at least 25? active abduction bilaterally, improving strength. Still limited with most daily activities, should continue to focus on ROM, strengthening, and mobility, as well as increasing HEP. Physical Therapy Plan Frequency and Duration Frequency of Treatment 2x/Week Plan of Care Start Date 07/13/22 Plan of Care End Date 09/12/22 Therapeutic Interventions Therapeutic Interventions Home Exercise Program,Joint Mobilizations,Manual Therapy, Patient/Caregiver Education, Self-Care/Home Management,Soft Tissue Mobilization, Therapeutic Activities, Therapeutic Exercises Modalities Cold Pack/Ice Massage,Hot Packs Next Visit Focus/Plan Next Note Type Treatment Note Next Visit Plan Shoulder ROM, pulleys, strengthening, posture training
--- NOTE | 2022-07-13 12:01 | PT.OPPOC ---
Physical, Occupational & Speech Therapy At [facility] Current Diagnoses Pain in right shoulder (07/13/22) Pain in left shoulder (07/13/22) Stiffness of right shoulder, not elsewhere classified (07/13/22) Stiffness of left shoulder, not elsewhere classified (07/13/22) Visit Care Team Role Provider Type Demetri Ca MD Attending Provider Physician Family Provider Primary Care Provider Referring Provider Specialty: Internal Medicine Address: [address] [place] [address], [address], [facility] Email: [email or web address] Plan Of Care PT-OP-T Assessment and Plan Start: 05/11/22 14:17 Freq: Status: Active Protocol: Document 07/13/22 11:15 DCW (Rec: 07/13/22 12:00 DCW [id number]) Physical Therapy Assessment Impairments Impairments Functional Activities, Functional Mobility,Pain, Posture,ROM,Soft Tissue Mobility,Strength,Tone Goals Two Impairment Significant limitations with bilateral shoulder ROM Usp Goal (LTG) Pt to demonstrate increase in shoulder ROM to at least 130? flexion and 120? abduction bilaterally in order to improve ability to reach up onto higher shelves. LTG Duration 09/12/22 - Improving One Impairment Pt does not have an appropriate home exercise program Short Term Goal (STG) Pt to be independent and compliant with an appropriate HEP STG Duration 08/13/22 Assessment Summary Assessment Pt showing very good progress overall, has improved bilaterally with ROM and functional motion, right still noticeably worse than left. Gained at least 25? active abduction bilaterally, improving strength. Still limited with most daily activities, should continue to focus on ROM, strengthening, and mobility, as well as increasing HEP. Physical Therapy Plan Frequency and Duration Frequency of Treatment 2x/Week Plan of Care Start Date 07/13/22 Plan of Care End Date 09/12/22 Therapeutic Interventions Therapeutic Interventions Home Exercise Program,Joint Mobilizations,Manual Therapy, Patient/Caregiver Education, Self-Care/Home Management,Soft Tissue Mobilization, Therapeutic Activities, Therapeutic Exercises Modalities Cold Pack/Ice Massage,Hot Packs Next Visit Focus/Plan Next Note Type Treatment Note Next Visit Plan Shoulder ROM, pulleys, strengthening, posture training Plan of Care Dates Plan of Care Start Date 07/13/22 Plan of Care End Date 09/12/22 Electronically Signed by: Kaiden Billings, PT 07/13/22 1120 If you are in agreement with this Plan of Care, please return a signed and dated copy. I have reviewed this Plan of Care and certify that the skilled therapy services above are required to meet the patient?s needs. Physician Signature Date Printed Name and Credentials Clinical Instructor Signature Printed Name and Credentials
--- NOTE | 2022-07-19 11:15 | PT.OTN ---
Current Diagnoses Pain in right shoulder (07/19/22) Pain in left shoulder (07/19/22) Stiffness of right shoulder, not elsewhere classified (07/19/22) Stiffness of left shoulder, not elsewhere classified (07/19/22) Physical Therapy Treatment Note PT-OP-A Visit Information Start: 05/11/22 14:17 Freq: Status: Active Protocol: Document 07/19/22 10:30 DCW (Rec: 07/19/22 11:15 DCW [id number]) Out-Patient Physical Therapy Visit Information Visit Information Visit Type Treatment Note Visit Start Time 10:30 Visit Stop Time 11:15 Total Visit Minutes 45 Visit Number 9 Number of FABRIC SOURCER Visits 0 Evaluation Information Evaluation Date 05/11/22 PT-OP-B Current Condition Start: 05/11/22 14:17 Freq: Status: Active Protocol: Document 05/11/22 12:00 DCW (Rec: 05/11/22 15:08 DCW [id number]) Current Condition History of Current Condition Onset Date 3 month history Current Complaints bilateral shoulder pain and stiffness History of Current Condition Pt is an 82 year old male presenting with a three month history of bilateral shoulder pain and stiffness, right worse than left. Pt unsure of any specific injury, but does note that there have been multiple occasions when he had to help his get up off the floor, which may have hurt his shoulder. Pt reports significant limitations reaching both up and back, especially putting on his jacket. Notes he has not had any imaging done of his shoulders, but he spoke with a friend of his who had to go through PT for shoulder pain, and he came out a new man, so he's looking forward to getting to do PT and helping to improve his shoulder function. PT-OP-C Subjective Start: 05/11/22 14:17 Freq: Status: Active Protocol: Document 07/19/22 10:30 DCW (Rec: 07/19/22 11:15 DCW [id number]) OP-PT Subjective Patient Comments Patient Comments Pt reports his shoulders are feeling pretty good today. PT-OP-E Functional Tests Start: 05/11/22 14:17 Freq: Status: Active Protocol: Document 07/13/22 11:15 DCW (Rec: 07/13/22 11:36 DCW [id number]) Functional Tests Apley's Scratch Test Action 1- Left Posterior opposite shoulder Action 1- Right Anterior opposite shoulder Action 2- Left C7 Action 2- Right C4 Action 3- Left T10 Action 3- Right L5 PT-OP-F Manual Assessment Start: 05/11/22 14:17 Freq: Status: Active Protocol: Document 07/13/22 11:15 DCW (Rec: 07/13/22 11:36 DCW [id number]) Manual Assessments Soft Tissue Assessment Soft Tissue Mobility Assessment Moderate tone right upper traps, levators, parascapulars , mild-moderate tone left upper traps, levators, parascapulars PT-OP-K Range of Motion Start: 05/11/22 14:17 Freq: Status: Active Protocol: Document 07/13/22 11:15 DCW (Rec: 07/13/22 11:36 DCW [id number]) Shoulder Goniometric Range of Motion Shoulder Right Passive Shoulder ROM WFL No Testing Position Supine Flexion 128 Abduction 99 External Rotation at 0 degrees Abduction 56 Right Active Shoulder ROM WFL No Testing Position Sitting Flexion 93 Abduction 92 External Rotation at 0 degrees Abduction 45 Internal Rotation Behind Back (text) L5 Left Passive Shoulder ROM WFL No Testing Position Supine Flexion 127 Abduction 122 External Rotation at 0 degrees Abduction 53 Left Active Shoulder ROM WFL No Testing Position Sitting Flexion 118 Abduction 105 External Rotation at 0 degrees Abduction 49 Internal Rotation Behind Back (text) T10 PT-OP-L Special Tests Start: 05/11/22 14:17 Freq: Status: Active Protocol: Document 07/13/22 11:15 DCW (Rec: 07/13/22 11:36 DCW [id number]) Special Tests Shoulder Special Tests Speed's Biceps Test Results Positive R Passive ER Rotator Cuff Test Results Positive bilaterally Lift-Off Rotator Cuff Test Results Positive bilaterally Solitario Marcus Impingement Test Results Positive bilaterally Grind Labrum Test Results Negative Empty Can Test Results Positive bilaterally Drop Arm Rotator Cuff Test Results Negative Clunk Test Test Results Negative Belly Press Test Results Positive R Apprehension Test Test Results Positive bilaterally AC Joint Compression Test Results Negative PT-OP-M Strength Start: 05/11/22 14:17 Freq: Status: Active Protocol: Document 07/13/22 11:15 DCW (Rec: 07/13/22 11:36 DCW [id number]) Shoulder Strength Shoulder Manual Muscle Testing Right Flexion 3+ Fair+ Abduction (C5) 2+ Poor+ External Rotation 4- Good- Internal Rotation 4+ Good+ Left Flexion 4- Good- Abduction (C5) 3- Fair- External Rotation 4+ Good+ Internal Rotation 4+ Good+ PT-OP-Q Treatments Start: 05/11/22 14:17 Freq: Status: Active Protocol: Document 07/19/22 10:30 DCW (Rec: 07/19/22 11:15 DCW [id number]) Cardio Equipment Upper Body Ergometer (UBE) Duration (Minutes) 6 RPM 60 Seat Position 11 Height 3.5 Therapeutic Exercises Standing Exercises Press Standing Exercise Name Press Side bilateral Resistance 10# Equipment Used PVC Pulleys Standing Exercise Name GH IR Pulleys Side bilateral Other Exercises Resisted Ambulation Other Exercise Name Resisted UE side-stepping Resistance Blue Manual Therapy Treatment Soft Tissue Mobilization Upper Trap Body Location B UT, Scalenes, SCM Mobilization Type Sustained Pressure,Trigger Point Release Body Position Supine Parascapulars Body Location B parascapular musculature Mobilization Type Sustained Pressure,Trigger Point Release Body Position Supine Joint Mobilizations GH Joint B GH mobilization Direction Inferior Grade III Body Position Supine PT-OP-T Assessment and Plan Start: 05/11/22 14:17 Freq: Status: Active Protocol: Document 07/19/22 10:30 DCW (Rec: 07/19/22 11:15 DCW [id number]) Physical Therapy Assessment Impairments Impairments Functional Activities, Functional Mobility,Pain, Posture,ROM,Soft Tissue Mobility,Strength,Tone Goals Two Impairment Significant limitations with bilateral shoulder ROM Golf Tournament Consultant Goal (LTG) Pt to demonstrate increase in shoulder ROM to at least 130? flexion and 120? abduction bilaterally in order to improve ability to reach up onto higher shelves. LTG Duration 09/12/22 - Improving One Impairment Pt does not have an appropriate home exercise program Short Term Goal (STG) Pt to be independent and compliant with an appropriate HEP STG Duration 08/13/22 Assessment Summary Assessment Pt still lagging behind with his right, but overall showing good overall improvement. Plan to continue with current POC. Physical Therapy Plan Frequency and Duration Frequency of Treatment 2x/Week Plan of Care Start Date 07/13/22 Plan of Care End Date 09/12/22 Therapeutic Interventions Therapeutic Interventions Home Exercise Program,Joint Mobilizations,Manual Therapy, Patient/Caregiver Education, Self-Care/Home Management,Soft Tissue Mobilization, Therapeutic Activities, Therapeutic Exercises Modalities Cold Pack/Ice Massage,Hot Packs Next Visit Focus/Plan Next Note Type Treatment Note Next Visit Plan Shoulder ROM, pulleys, strengthening, posture training
--- NOTE | 2022-07-25 11:58 | PT.OTN ---
Current Diagnoses Pain in right shoulder (07/25/22) Pain in left shoulder (07/25/22) Stiffness of right shoulder, not elsewhere classified (07/25/22) Stiffness of left shoulder, not elsewhere classified (07/25/22) Physical Therapy Treatment Note PT-OP-A Visit Information Start: 05/11/22 14:17 Freq: Status: Active Protocol: Document 07/25/22 11:17 DCW (Rec: 07/25/22 11:57 DCW [id number]) Out-Patient Physical Therapy Visit Information Visit Information Visit Type Treatment Note Visit Start Time 11:17 Visit Stop Time 12:00 Total Visit Minutes 43 Visit Number 10 Number of ROUTING MACHINE OPERATOR Visits 0 Evaluation Information Evaluation Date 05/11/22 PT-OP-B Current Condition Start: 05/11/22 14:17 Freq: Status: Active Protocol: Document 05/11/22 12:00 DCW (Rec: 05/11/22 15:08 DCW [id number]) Current Condition History of Current Condition Onset Date 3 month history Current Complaints bilateral shoulder pain and stiffness History of Current Condition Pt is an 82 year old male presenting with a three month history of bilateral shoulder pain and stiffness, right worse than left. Pt unsure of any specific injury, but does note that there have been multiple occasions when he had to help his get up off the floor, which may have hurt his shoulder. Pt reports significant limitations reaching both up and back, especially putting on his jacket. Notes he has not had any imaging done of his shoulders, but he spoke with a friend of his who had to go through PT for shoulder pain, and he came out a new man, so he's looking forward to getting to do PT and helping to improve his shoulder function. PT-OP-C Subjective Start: 05/11/22 14:17 Freq: Status: Active Protocol: Document 07/25/22 11:17 DCW (Rec: 07/25/22 11:57 DCW [id number]) OP-PT Subjective Patient Comments Patient Comments Pt reports he fell onto his back last week after twisting to take down a flag. Was seen in the ED on the evening of 07/20/22, discharged very early in the AM. Examination at the time was unremarkable, pt still pretty tender with certain movements, especially getting into and out of bed. Pt would like to try to get through a full session today. PT-OP-E Functional Tests Start: 05/11/22 14:17 Freq: Status: Active Protocol: Document 07/13/22 11:15 DCW (Rec: 07/13/22 11:36 DCW [id number]) Functional Tests Apley's Scratch Test Action 1- Left Posterior opposite shoulder Action 1- Right Anterior opposite shoulder Action 2- Left C7 Action 2- Right C4 Action 3- Left T10 Action 3- Right L5 PT-OP-F Manual Assessment Start: 05/11/22 14:17 Freq: Status: Active Protocol: Document 07/13/22 11:15 DCW (Rec: 07/13/22 11:36 DCW [id number]) Manual Assessments Soft Tissue Assessment Soft Tissue Mobility Assessment Moderate tone right upper traps, levators, parascapulars , mild-moderate tone left upper traps, levators, parascapulars PT-OP-K Range of Motion Start: 05/11/22 14:17 Freq: Status: Active Protocol: Document 07/13/22 11:15 DCW (Rec: 07/13/22 11:36 DCW [id number]) Shoulder Goniometric Range of Motion Shoulder Right Passive Shoulder ROM WFL No Testing Position Supine Flexion 128 Abduction 99 External Rotation at 0 degrees Abduction 56 Right Active Shoulder ROM WFL No Testing Position Sitting Flexion 93 Abduction 92 External Rotation at 0 degrees Abduction 45 Internal Rotation Behind Back (text) L5 Left Passive Shoulder ROM WFL No Testing Position Supine Flexion 127 Abduction 122 External Rotation at 0 degrees Abduction 53 Left Active Shoulder ROM WFL No Testing Position Sitting Flexion 118 Abduction 105 External Rotation at 0 degrees Abduction 49 Internal Rotation Behind Back (text) T10 PT-OP-L Special Tests Start: 05/11/22 14:17 Freq: Status: Active Protocol: Document 07/13/22 11:15 DCW (Rec: 07/13/22 11:36 DCW [id number]) Special Tests Shoulder Special Tests Speed's Biceps Test Results Positive R Passive ER Rotator Cuff Test Results Positive bilaterally Lift-Off Rotator Cuff Test Results Positive bilaterally Solitario Marcus Impingement Test Results Positive bilaterally Grind Labrum Test Results Negative Empty Can Test Results Positive bilaterally Drop Arm Rotator Cuff Test Results Negative Clunk Test Test Results Negative Belly Press Test Results Positive R Apprehension Test Test Results Positive bilaterally AC Joint Compression Test Results Negative PT-OP-M Strength Start: 05/11/22 14:17 Freq: Status: Active Protocol: Document 07/13/22 11:15 DCW (Rec: 07/13/22 11:36 DCW [id number]) Shoulder Strength Shoulder Manual Muscle Testing Right Flexion 3+ Fair+ Abduction (C5) 2+ Poor+ External Rotation 4- Good- Internal Rotation 4+ Good+ Left Flexion 4- Good- Abduction (C5) 3- Fair- External Rotation 4+ Good+ Internal Rotation 4+ Good+ PT-OP-Q Treatments Start: 05/11/22 14:17 Freq: Status: Active Protocol: Document 07/25/22 11:17 DCW (Rec: 07/25/22 11:57 DCW [id number]) Cardio Equipment Upper Body Ergometer (UBE) Duration (Minutes) 6 RPM 60 Seat Position 11 Height 3.5 Therapeutic Exercises Standing Exercises Press Comments Stopped today d/t back pain Pulleys Standing Exercise Name GH IR Pulleys Side bilateral Other Exercises Resisted Ambulation Other Exercise Name Resisted UE side-stepping Resistance Blue Manual Therapy Treatment Soft Tissue Mobilization Upper Trap Body Location B UT, Scalenes, SCM Mobilization Type Sustained Pressure,Trigger Point Release Body Position Supine Parascapulars Body Location B parascapular musculature Mobilization Type Sustained Pressure,Trigger Point Release Body Position Supine Joint Mobilizations GH Joint B GH mobilization Direction Inferior Grade III Body Position Supine PT-OP-T Assessment and Plan Start: 05/11/22 14:17 Freq: Status: Active Protocol: Document 07/25/22 11:17 DCW (Rec: 07/25/22 11:57 DCW [id number]) Physical Therapy Assessment Impairments Impairments Functional Activities, Functional Mobility,Pain, Posture,ROM,Soft Tissue Mobility,Strength,Tone Goals Two Impairment Significant limitations with bilateral shoulder ROM Halfway Goal (LTG) Pt to demonstrate increase in shoulder ROM to at least 130? flexion and 120? abduction bilaterally in order to improve ability to reach up onto higher shelves. LTG Duration 09/12/22 - Improving One Impairment Pt does not have an appropriate home exercise program Short Term Goal (STG) Pt to be independent and compliant with an appropriate HEP STG Duration 08/13/22 Assessment Summary Assessment Pt struggled with some activities today secondary to back pain following fall last week, but shoulders still getting better overall, especially left. Physical Therapy Plan Frequency and Duration Frequency of Treatment 2x/Week Plan of Care Start Date 07/13/22 Plan of Care End Date 09/12/22 Therapeutic Interventions Therapeutic Interventions Home Exercise Program,Joint Mobilizations,Manual Therapy, Patient/Caregiver Education, Self-Care/Home Management,Soft Tissue Mobilization, Therapeutic Activities, Therapeutic Exercises Modalities Cold Pack/Ice Massage,Hot Packs Next Visit Focus/Plan Next Note Type Treatment Note Next Visit Plan Shoulder ROM, pulleys, strengthening, posture training
--- NOTE | 2022-07-29 10:43 | PT.OTN ---
Current Diagnoses Pain in right shoulder (07/29/22) Pain in left shoulder (07/29/22) Stiffness of right shoulder, not elsewhere classified (07/29/22) Stiffness of left shoulder, not elsewhere classified (07/29/22) Physical Therapy Treatment Note PT-OP-A Visit Information Start: 05/11/22 14:17 Freq: Status: Active Protocol: Document 07/29/22 09:02 TH (Rec: 07/29/22 10:43 TH [id number]) Out-Patient Physical Therapy Visit Information Visit Information Visit Type Treatment Note Visit Start Time 08:15 Visit Stop Time 09:00 Total Visit Minutes 45 Visit Number 11 Number of CRAB BUTCHER Visits 0 PT-OP-B Current Condition Start: 05/11/22 14:17 Freq: Status: Active Protocol: Document 05/11/22 12:00 DCW (Rec: 05/11/22 15:08 DCW [id number]) Current Condition History of Current Condition Onset Date 3 month history Current Complaints bilateral shoulder pain and stiffness History of Current Condition Pt is an 82 year old male presenting with a three month history of bilateral shoulder pain and stiffness, right worse than left. Pt unsure of any specific injury, but does note that there have been multiple occasions when he had to help his get up off the floor, which may have hurt his shoulder. Pt reports significant limitations reaching both up and back, especially putting on his jacket. Notes he has not had any imaging done of his shoulders, but he spoke with a friend of his who had to go through PT for shoulder pain, and he came out a new man, so he's looking forward to getting to do PT and helping to improve his shoulder function. PT-OP-C Subjective Start: 05/11/22 14:17 Freq: Status: Active Protocol: Document 07/29/22 09:02 TH (Rec: 07/29/22 10:43 TH [id number]) OP-PT Subjective Patient Comments Patient Comments Pt reports left shld is coming along with less pain and better rom however right shld still pretty painful. PT-OP-E Functional Tests Start: 05/11/22 14:17 Freq: Status: Active Protocol: Document 07/13/22 11:15 DCW (Rec: 07/13/22 11:36 DCW [id number]) Functional Tests Apley's Scratch Test Action 1- Left Posterior opposite shoulder Action 1- Right Anterior opposite shoulder Action 2- Left C7 Action 2- Right C4 Action 3- Left T10 Action 3- Right L5 PT-OP-F Manual Assessment Start: 05/11/22 14:17 Freq: Status: Active Protocol: Document 07/13/22 11:15 DCW (Rec: 07/13/22 11:36 DCW [id number]) Manual Assessments Soft Tissue Assessment Soft Tissue Mobility Assessment Moderate tone right upper traps, levators, parascapulars , mild-moderate tone left upper traps, levators, parascapulars PT-OP-K Range of Motion Start: 05/11/22 14:17 Freq: Status: Active Protocol: Document 07/13/22 11:15 DCW (Rec: 07/13/22 11:36 DCW [id number]) Shoulder Goniometric Range of Motion Shoulder Right Passive Shoulder ROM WFL No Testing Position Supine Flexion 128 Abduction 99 External Rotation at 0 degrees Abduction 56 Right Active Shoulder ROM WFL No Testing Position Sitting Flexion 93 Abduction 92 External Rotation at 0 degrees Abduction 45 Internal Rotation Behind Back (text) L5 Left Passive Shoulder ROM WFL No Testing Position Supine Flexion 127 Abduction 122 External Rotation at 0 degrees Abduction 53 Left Active Shoulder ROM WFL No Testing Position Sitting Flexion 118 Abduction 105 External Rotation at 0 degrees Abduction 49 Internal Rotation Behind Back (text) T10 PT-OP-L Special Tests Start: 05/11/22 14:17 Freq: Status: Active Protocol: Document 07/13/22 11:15 DCW (Rec: 07/13/22 11:36 DCW [id number]) Special Tests Shoulder Special Tests Speed's Biceps Test Results Positive R Passive ER Rotator Cuff Test Results Positive bilaterally Lift-Off Rotator Cuff Test Results Positive bilaterally Solitario Marcus Impingement Test Results Positive bilaterally Grind Labrum Test Results Negative Empty Can Test Results Positive bilaterally Drop Arm Rotator Cuff Test Results Negative Clunk Test Test Results Negative Belly Press Test Results Positive R Apprehension Test Test Results Positive bilaterally AC Joint Compression Test Results Negative PT-OP-M Strength Start: 05/11/22 14:17 Freq: Status: Active Protocol: Document 07/13/22 11:15 DCW (Rec: 07/13/22 11:36 DCW [id number]) Shoulder Strength Shoulder Manual Muscle Testing Right Flexion 3+ Fair+ Abduction (C5) 2+ Poor+ External Rotation 4- Good- Internal Rotation 4+ Good+ Left Flexion 4- Good- Abduction (C5) 3- Fair- External Rotation 4+ Good+ Internal Rotation 4+ Good+ PT-OP-Q Treatments Start: 05/11/22 14:17 Freq: Status: Active Protocol: Document 07/29/22 09:02 TH (Rec: 07/29/22 10:43 TH [id number]) Manual Therapy Treatment Manual Techniques 2nd/3rd rib mob Comments right subscapular release Comments right GHJ mob Comments Ant, post, inf GHJ mob Grade II-III bilat. Self-Care/Home Management Treatment Education Other Education Access Code: [email or web address] URL: [email or web address] Date: 07/29/2022 Prepared by: Ailyn Godoy Exercises Seated Shoulder Scaption AAROM with Karin at Side - 1 x daily - 7 x weekly Seated Shoulder Abduction AAROM with Karin Behind - 1 x daily - 7 x weekly PT-OP-T Assessment and Plan Start: 05/11/22 14:17 Freq: Status: Active Protocol: Document 07/29/22 09:02 TH (Rec: 07/29/22 10:43 TH [id number]) Physical Therapy Assessment Goals Two Impairment Significant limitations with bilateral shoulder ROM Shafting Cleaner Goal (LTG) Pt to demonstrate increase in shoulder ROM to at least 130? flexion and 120? abduction bilaterally in order to improve ability to reach up onto higher shelves. LTG Duration 09/12/22 - Improving One Impairment Pt does not have an appropriate home exercise program Short Term Goal (STG) Pt to be independent and compliant with an appropriate HEP STG Duration 08/13/22 Assessment Summary Assessment Pt is making gradual progress as demonstrated by improved bilat shld rom and decreased pain left shld. Introduced pulleys ex. and recommended pt . purchase pulleys for home. Physical Therapy Plan Frequency and Duration Frequency of Treatment 2x/Week Plan of Care Start Date 07/13/22 Plan of Care End Date 09/12/22 Therapeutic Interventions Therapeutic Interventions Home Exercise Program,Joint Mobilizations,Manual Therapy, Patient/Caregiver Education, Self-Care/Home Management,Soft Tissue Mobilization, Therapeutic Activities, Therapeutic Exercises Modalities Cold Pack/Ice Massage,Hot Packs Next Visit Focus/Plan Next Note Type Treatment Note Next Visit Plan Shoulder ROM, pulleys, strengthening, posture training
--- NOTE | 2022-08-01 11:56 | PT.OTN ---
Current Diagnoses Pain in right shoulder (08/01/22) Pain in left shoulder (08/01/22) Stiffness of right shoulder, not elsewhere classified (08/01/22) Stiffness of left shoulder, not elsewhere classified (08/01/22) Physical Therapy Treatment Note PT-OP-A Visit Information Start: 05/11/22 14:17 Freq: Status: Active Protocol: Document 08/01/22 11:20 DCW (Rec: 08/01/22 11:56 DCW [id number]) Out-Patient Physical Therapy Visit Information Visit Information Visit Type Treatment Note Visit Start Time 11:20 Visit Stop Time 12:00 Total Visit Minutes 40 Visit Number 12 Number of BLACKSMITH ASSISTANT Visits 0 Evaluation Information Evaluation Date 05/11/22 PT-OP-B Current Condition Start: 05/11/22 14:17 Freq: Status: Active Protocol: Document 05/11/22 12:00 DCW (Rec: 05/11/22 15:08 DCW [id number]) Current Condition History of Current Condition Onset Date 3 month history Current Complaints bilateral shoulder pain and stiffness History of Current Condition Pt is an 82 year old male presenting with a three month history of bilateral shoulder pain and stiffness, right worse than left. Pt unsure of any specific injury, but does note that there have been multiple occasions when he had to help his get up off the floor, which may have hurt his shoulder. Pt reports significant limitations reaching both up and back, especially putting on his jacket. Notes he has not had any imaging done of his shoulders, but he spoke with a friend of his who had to go through PT for shoulder pain, and he came out a new man, so he's looking forward to getting to do PT and helping to improve his shoulder function. PT-OP-C Subjective Start: 05/11/22 14:17 Freq: Status: Active Protocol: Document 08/01/22 11:20 DCW (Rec: 08/01/22 11:56 DCW [id number]) OP-PT Subjective Patient Comments Patient Comments Pt reports he is feeling quite a bit better, probably about 75%. PT-OP-E Functional Tests Start: 05/11/22 14:17 Freq: Status: Active Protocol: Document 07/13/22 11:15 DCW (Rec: 07/13/22 11:36 DCW [id number]) Functional Tests Apley's Scratch Test Action 1- Left Posterior opposite shoulder Action 1- Right Anterior opposite shoulder Action 2- Left C7 Action 2- Right C4 Action 3- Left T10 Action 3- Right L5 PT-OP-F Manual Assessment Start: 05/11/22 14:17 Freq: Status: Active Protocol: Document 07/13/22 11:15 DCW (Rec: 07/13/22 11:36 DCW [id number]) Manual Assessments Soft Tissue Assessment Soft Tissue Mobility Assessment Moderate tone right upper traps, levators, parascapulars , mild-moderate tone left upper traps, levators, parascapulars PT-OP-K Range of Motion Start: 05/11/22 14:17 Freq: Status: Active Protocol: Document 07/13/22 11:15 DCW (Rec: 07/13/22 11:36 DCW [id number]) Shoulder Goniometric Range of Motion Shoulder Right Passive Shoulder ROM WFL No Testing Position Supine Flexion 128 Abduction 99 External Rotation at 0 degrees Abduction 56 Right Active Shoulder ROM WFL No Testing Position Sitting Flexion 93 Abduction 92 External Rotation at 0 degrees Abduction 45 Internal Rotation Behind Back (text) L5 Left Passive Shoulder ROM WFL No Testing Position Supine Flexion 127 Abduction 122 External Rotation at 0 degrees Abduction 53 Left Active Shoulder ROM WFL No Testing Position Sitting Flexion 118 Abduction 105 External Rotation at 0 degrees Abduction 49 Internal Rotation Behind Back (text) T10 PT-OP-L Special Tests Start: 05/11/22 14:17 Freq: Status: Active Protocol: Document 07/13/22 11:15 DCW (Rec: 07/13/22 11:36 DCW [id number]) Special Tests Shoulder Special Tests Speed's Biceps Test Results Positive R Passive ER Rotator Cuff Test Results Positive bilaterally Lift-Off Rotator Cuff Test Results Positive bilaterally Solitario Marcus Impingement Test Results Positive bilaterally Grind Labrum Test Results Negative Empty Can Test Results Positive bilaterally Drop Arm Rotator Cuff Test Results Negative Clunk Test Test Results Negative Belly Press Test Results Positive R Apprehension Test Test Results Positive bilaterally AC Joint Compression Test Results Negative PT-OP-M Strength Start: 05/11/22 14:17 Freq: Status: Active Protocol: Document 07/13/22 11:15 DCW (Rec: 07/13/22 11:36 DCW [id number]) Shoulder Strength Shoulder Manual Muscle Testing Right Flexion 3+ Fair+ Abduction (C5) 2+ Poor+ External Rotation 4- Good- Internal Rotation 4+ Good+ Left Flexion 4- Good- Abduction (C5) 3- Fair- External Rotation 4+ Good+ Internal Rotation 4+ Good+ PT-OP-Q Treatments Start: 05/11/22 14:17 Freq: Status: Active Protocol: Document 08/01/22 11:20 DCW (Rec: 08/01/22 11:56 DCW [id number]) Cardio Equipment Upper Body Ergometer (UBE) Duration (Minutes) 6 RPM 60 Seat Position 11 Height 3.5 Therapeutic Exercises Standing Exercises Press Standing Exercise Name Press Side bilateral Resistance 10# Equipment Used PVC Pulleys Standing Exercise Name GH IR Pulleys Side bilateral Other Exercises Resisted Ambulation Other Exercise Name Resisted UE side-stepping Resistance Blue Manual Therapy Treatment Soft Tissue Mobilization Upper Trap Body Location B UT, Scalenes, SCM Mobilization Type Sustained Pressure,Trigger Point Release Body Position Supine Parascapulars Body Location B parascapular musculature Mobilization Type Sustained Pressure,Trigger Point Release Body Position Supine Joint Mobilizations GH Joint B GH mobilization Direction Inferior Grade III Body Position Supine PT-OP-T Assessment and Plan Start: 05/11/22 14:17 Freq: Status: Active Protocol: Document 08/01/22 11:20 DCW (Rec: 08/01/22 11:56 DCW [id number]) Physical Therapy Assessment Impairments Impairments Functional Activities, Functional Mobility,Pain, Posture,ROM,Soft Tissue Mobility,Strength,Tone Goals Two Impairment Significant limitations with bilateral shoulder ROM Detention Goal (LTG) Pt to demonstrate increase in shoulder ROM to at least 130? flexion and 120? abduction bilaterally in order to improve ability to reach up onto higher shelves. LTG Duration 09/12/22 - Improving One Impairment Pt does not have an appropriate home exercise program Short Term Goal (STG) Pt to be independent and compliant with an appropriate HEP STG Duration 08/13/22 Assessment Summary Assessment Pt doing much better tolerating activity as his ribs heal following his recent fall. Left shoulder continues to progress faster than right , but good progress with both. Physical Therapy Plan Frequency and Duration Frequency of Treatment 2x/Week Plan of Care Start Date 07/13/22 Plan of Care End Date 09/12/22 Therapeutic Interventions Therapeutic Interventions Home Exercise Program,Joint Mobilizations,Manual Therapy, Patient/Caregiver Education, Self-Care/Home Management,Soft Tissue Mobilization, Therapeutic Activities, Therapeutic Exercises Modalities Cold Pack/Ice Massage,Hot Packs Next Visit Focus/Plan Next Note Type Treatment Note Next Visit Plan Shoulder ROM, pulleys, strengthening, posture training
--- NOTE | 2022-08-04 12:01 | PT.OTN ---
Current Diagnoses Pain in right shoulder (08/04/22) Pain in left shoulder (08/04/22) Stiffness of right shoulder, not elsewhere classified (08/04/22) Stiffness of left shoulder, not elsewhere classified (08/04/22) Physical Therapy Treatment Note PT-OP-A Visit Information Start: 05/11/22 14:17 Freq: Status: Active Protocol: Document 08/04/22 11:18 DCW (Rec: 08/04/22 12:01 DCW [id number]) Out-Patient Physical Therapy Visit Information Visit Information Visit Type Treatment Note Visit Start Time 11:18 Visit Stop Time 12:00 Total Visit Minutes 42 Visit Number 13 Number of WEATHER ANALYST Visits 0 Evaluation Information Evaluation Date 05/11/22 PT-OP-B Current Condition Start: 05/11/22 14:17 Freq: Status: Active Protocol: Document 05/11/22 12:00 DCW (Rec: 05/11/22 15:08 DCW [id number]) Current Condition History of Current Condition Onset Date 3 month history Current Complaints bilateral shoulder pain and stiffness History of Current Condition Pt is an 82 year old male presenting with a three month history of bilateral shoulder pain and stiffness, right worse than left. Pt unsure of any specific injury, but does note that there have been multiple occasions when he had to help his get up off the floor, which may have hurt his shoulder. Pt reports significant limitations reaching both up and back, especially putting on his jacket. Notes he has not had any imaging done of his shoulders, but he spoke with a friend of his who had to go through PT for shoulder pain, and he came out a new man, so he's looking forward to getting to do PT and helping to improve his shoulder function. PT-OP-C Subjective Start: 05/11/22 14:17 Freq: Status: Active Protocol: Document 08/04/22 11:18 DCW (Rec: 08/04/22 12:01 DCW [id number]) OP-PT Subjective Patient Comments Patient Comments Admits his right shoulder is not feeling that great. PT-OP-E Functional Tests Start: 05/11/22 14:17 Freq: Status: Active Protocol: Document 07/13/22 11:15 DCW (Rec: 07/13/22 11:36 DCW [id number]) Functional Tests Ronnieey's Scratch Test Action 1- Left Posterior opposite shoulder Action 1- Right Anterior opposite shoulder Action 2- Left C7 Action 2- Right C4 Action 3- Left T10 Action 3- Right L5 PT-OP-F Manual Assessment Start: 05/11/22 14:17 Freq: Status: Active Protocol: Document 07/13/22 11:15 DCW (Rec: 07/13/22 11:36 DCW [id number]) Manual Assessments Soft Tissue Assessment Soft Tissue Mobility Assessment Moderate tone right upper traps, levators, parascapulars , mild-moderate tone left upper traps, levators, parascapulars PT-OP-K Range of Motion Start: 05/11/22 14:17 Freq: Status: Active Protocol: Document 07/13/22 11:15 DCW (Rec: 07/13/22 11:36 DCW [id number]) Shoulder Goniometric Range of Motion Shoulder Right Passive Shoulder ROM WFL No Testing Position Supine Flexion 128 Abduction 99 External Rotation at 0 degrees Abduction 56 Right Active Shoulder ROM WFL No Testing Position Sitting Flexion 93 Abduction 92 External Rotation at 0 degrees Abduction 45 Internal Rotation Behind Back (text) L5 Left Passive Shoulder ROM WFL No Testing Position Supine Flexion 127 Abduction 122 External Rotation at 0 degrees Abduction 53 Left Active Shoulder ROM WFL No Testing Position Sitting Flexion 118 Abduction 105 External Rotation at 0 degrees Abduction 49 Internal Rotation Behind Back (text) T10 PT-OP-L Special Tests Start: 05/11/22 14:17 Freq: Status: Active Protocol: Document 07/13/22 11:15 DCW (Rec: 07/13/22 11:36 DCW [id number]) Special Tests Shoulder Special Tests Speed's Biceps Test Results Positive R Passive ER Rotator Cuff Test Results Positive bilaterally Lift-Off Rotator Cuff Test Results Positive bilaterally Solitario Marcus Impingement Test Results Positive bilaterally Grind Labrum Test Results Negative Empty Can Test Results Positive bilaterally Drop Arm Rotator Cuff Test Results Negative Clunk Test Test Results Negative Belly Press Test Results Positive R Apprehension Test Test Results Positive bilaterally AC Joint Compression Test Results Negative PT-OP-M Strength Start: 05/11/22 14:17 Freq: Status: Active Protocol: Document 07/13/22 11:15 DCW (Rec: 07/13/22 11:36 DCW [id number]) Shoulder Strength Shoulder Manual Muscle Testing Right Flexion 3+ Fair+ Abduction (C5) 2+ Poor+ External Rotation 4- Good- Internal Rotation 4+ Good+ Left Flexion 4- Good- Abduction (C5) 3- Fair- External Rotation 4+ Good+ Internal Rotation 4+ Good+ PT-OP-Q Treatments Start: 05/11/22 14:17 Freq: Status: Active Protocol: Document 08/04/22 11:18 DCW (Rec: 08/04/22 12:01 DCW [id number]) Cardio Equipment Upper Body Ergometer (UBE) Duration (Minutes) 6 RPM 60 Seat Position 11 Height 3.5 Therapeutic Exercises Standing Exercises Press Standing Exercise Name Press Side bilateral Resistance 10# Equipment Used PVC Pulleys Standing Exercise Name GH IR Pulleys Side right Other Exercises Wall Push-up Other Exercise Name Wall push-up Side bilateral Reps/Minutes x10 each position Comments <> and W hand positions Resisted Ambulation Other Exercise Name Resisted UE side-stepping Resistance Blue Manual Therapy Treatment Soft Tissue Mobilization Upper Trap Body Location R UT, Scalenes, SCM Mobilization Type Sustained Pressure,Trigger Point Release Body Position Supine Parascapulars Body Location R parascapular musculature Mobilization Type Sustained Pressure,Trigger Point Release Body Position Supine Joint Mobilizations GH Joint R GH mobilization Direction Inferior Grade III Body Position Supine PT-OP-T Assessment and Plan Start: 05/11/22 14:17 Freq: Status: Active Protocol: Document 08/04/22 11:18 DCW (Rec: 08/04/22 12:01 DCW [id number]) Physical Therapy Assessment Impairments Impairments Functional Activities, Functional Mobility,Pain, Posture,ROM,Soft Tissue Mobility,Strength,Tone Goals Two Impairment Significant limitations with bilateral shoulder ROM Long-Term Goal (LTG) Pt to demonstrate increase in shoulder ROM to at least 130? flexion and 120? abduction bilaterally in order to improve ability to reach up onto higher shelves. LTG Duration 09/12/22 - Improving One Impairment Pt does not have an appropriate home exercise program Short Term Goal (STG) Pt to be independent and compliant with an appropriate HEP STG Duration 08/13/22 Assessment Summary Assessment Pt still struggling with his right arm, especially internal rotation reaching behind his back. May be approaching progress plateau, and could require return to referring physician to determine next step if improvement isn't made over the next few visits. Physical Therapy Plan Frequency and Duration Frequency of Treatment 2x/Week Plan of Care Start Date 07/13/22 Plan of Care End Date 09/12/22 Therapeutic Interventions Therapeutic Interventions Home Exercise Program,Joint Mobilizations,Manual Therapy, Patient/Caregiver Education, Self-Care/Home Management,Soft Tissue Mobilization, Therapeutic Activities, Therapeutic Exercises Modalities Cold Pack/Ice Massage,Hot Packs Next Visit Focus/Plan Next Note Type Treatment Note Next Visit Plan Shoulder ROM, pulleys, strengthening, posture training
--- NOTE | 2022-08-11 11:56 | PT.OTN ---
Current Diagnoses Pain in right shoulder (08/11/22) Pain in left shoulder (08/11/22) Stiffness of right shoulder, not elsewhere classified (08/11/22) Stiffness of left shoulder, not elsewhere classified (08/11/22) Physical Therapy Treatment Note PT-OP-A Visit Information Start: 05/11/22 14:17 Freq: Status: Active Protocol: Document 08/11/22 11:15 DCW (Rec: 08/11/22 11:56 DCW [id number]) Out-Patient Physical Therapy Visit Information Visit Information Visit Type Treatment Note Visit Start Time 11:15 Visit Stop Time 12:00 Total Visit Minutes 45 Visit Number 14 Number of SPIRITUAL CARE COORDINATOR Visits 0 Evaluation Information Evaluation Date 05/11/22 PT-OP-B Current Condition Start: 05/11/22 14:17 Freq: Status: Active Protocol: Document 05/11/22 12:00 DCW (Rec: 05/11/22 15:08 DCW [id number]) Current Condition History of Current Condition Onset Date 3 month history Current Complaints bilateral shoulder pain and stiffness History of Current Condition Pt is an 82 year old male presenting with a three month history of bilateral shoulder pain and stiffness, right worse than left. Pt unsure of any specific injury, but does note that there have been multiple occasions when he had to help his get up off the floor, which may have hurt his shoulder. Pt reports significant limitations reaching both up and back, especially putting on his jacket. Notes he has not had any imaging done of his shoulders, but he spoke with a friend of his who had to go through PT for shoulder pain, and he came out a new man, so he's looking forward to getting to do PT and helping to improve his shoulder function. PT-OP-C Subjective Start: 05/11/22 14:17 Freq: Status: Active Protocol: Document 08/11/22 11:15 DCW (Rec: 08/11/22 11:56 DCW [id number]) OP-PT Subjective Patient Comments Patient Comments Pt reports his shoulder is feeling good today, but admits that his back is still bothering him followin his fall a few weeks ago. PT-OP-E Functional Tests Start: 05/11/22 14:17 Freq: Status: Active Protocol: Document 07/13/22 11:15 DCW (Rec: 07/13/22 11:36 DCW [id number]) Functional Tests Apley's Scratch Test Action 1- Left Posterior opposite shoulder Action 1- Right Anterior opposite shoulder Action 2- Left C7 Action 2- Right C4 Action 3- Left T10 Action 3- Right L5 PT-OP-F Manual Assessment Start: 05/11/22 14:17 Freq: Status: Active Protocol: Document 07/13/22 11:15 DCW (Rec: 07/13/22 11:36 DCW [id number]) Manual Assessments Soft Tissue Assessment Soft Tissue Mobility Assessment Moderate tone right upper traps, levators, parascapulars , mild-moderate tone left upper traps, levators, parascapulars PT-OP-K Range of Motion Start: 05/11/22 14:17 Freq: Status: Active Protocol: Document 07/13/22 11:15 DCW (Rec: 07/13/22 11:36 DCW [id number]) Shoulder Goniometric Range of Motion Shoulder Right Passive Shoulder ROM WFL No Testing Position Supine Flexion 128 Abduction 99 External Rotation at 0 degrees Abduction 56 Right Active Shoulder ROM WFL No Testing Position Sitting Flexion 93 Abduction 92 External Rotation at 0 degrees Abduction 45 Internal Rotation Behind Back (text) L5 Left Passive Shoulder ROM WFL No Testing Position Supine Flexion 127 Abduction 122 External Rotation at 0 degrees Abduction 53 Left Active Shoulder ROM WFL No Testing Position Sitting Flexion 118 Abduction 105 External Rotation at 0 degrees Abduction 49 Internal Rotation Behind Back (text) T10 PT-OP-L Special Tests Start: 05/11/22 14:17 Freq: Status: Active Protocol: Document 07/13/22 11:15 DCW (Rec: 07/13/22 11:36 DCW [id number]) Special Tests Shoulder Special Tests Speed's Biceps Test Results Positive R Passive ER Rotator Cuff Test Results Positive bilaterally Lift-Off Rotator Cuff Test Results Positive bilaterally Solitario Marcus Impingement Test Results Positive bilaterally Grind Labrum Test Results Negative Empty Can Test Results Positive bilaterally Drop Arm Rotator Cuff Test Results Negative Clunk Test Test Results Negative Belly Press Test Results Positive R Apprehension Test Test Results Positive bilaterally AC Joint Compression Test Results Negative PT-OP-M Strength Start: 05/11/22 14:17 Freq: Status: Active Protocol: Document 07/13/22 11:15 DCW (Rec: 07/13/22 11:36 DCW [id number]) Shoulder Strength Shoulder Manual Muscle Testing Right Flexion 3+ Fair+ Abduction (C5) 2+ Poor+ External Rotation 4- Good- Internal Rotation 4+ Good+ Left Flexion 4- Good- Abduction (C5) 3- Fair- External Rotation 4+ Good+ Internal Rotation 4+ Good+ PT-OP-Q Treatments Start: 05/11/22 14:17 Freq: Status: Active Protocol: Document 08/11/22 11:15 DCW (Rec: 08/11/22 11:56 DCW [id number]) Cardio Equipment Upper Body Ergometer (UBE) Duration (Minutes) 6 RPM 60 Seat Position 11 Height 3.5 Therapeutic Exercises Standing Exercises Press Standing Exercise Name Press Side bilateral Resistance 10# Equipment Used PVC Pulleys Standing Exercise Name GH IR Pulleys Side right Other Exercises Wall Push-up Other Exercise Name Wall push-up Side bilateral Reps/Minutes x15 each position Comments <> and W hand positions Resisted Ambulation Other Exercise Name Resisted UE side-stepping Resistance Blue Manual Therapy Treatment Soft Tissue Mobilization Upper Trap Body Location R UT, Scalenes, SCM, Biceps Mobilization Type Sustained Pressure,Trigger Point Release Body Position Supine Parascapulars Body Location R parascapular musculature Mobilization Type Sustained Pressure,Trigger Point Release Body Position Supine Joint Mobilizations GH Joint R GH mobilization Direction Inferior Grade III Body Position Supine PT-OP-T Assessment and Plan Start: 05/11/22 14:17 Freq: Status: Active Protocol: Document 08/11/22 11:15 DCW (Rec: 08/11/22 11:56 DCW [id number]) Physical Therapy Assessment Impairments Impairments Functional Activities, Functional Mobility,Pain, Posture,ROM,Soft Tissue Mobility,Strength,Tone Goals Two Impairment Significant limitations with bilateral shoulder ROM Group Home Goal (LTG) Pt to demonstrate increase in shoulder ROM to at least 130? flexion and 120? abduction bilaterally in order to improve ability to reach up onto higher shelves. LTG Duration 09/12/22 - Improving One Impairment Pt does not have an appropriate home exercise program Short Term Goal (STG) Pt to be independent and compliant with an appropriate HEP STG Duration 08/13/22 Assessment Summary Assessment Pt doing a bit better today, tolerated TherEx without as much difficulty. Is displaying some increased tone and tenderness in right biceps, potentially due to increased compensatory movements. Physical Therapy Plan Frequency and Duration Frequency of Treatment 2x/Week Plan of Care Start Date 07/13/22 Plan of Care End Date 09/12/22 Therapeutic Interventions Therapeutic Interventions Home Exercise Program,Joint Mobilizations,Manual Therapy, Patient/Caregiver Education, Self-Care/Home Management,Soft Tissue Mobilization, Therapeutic Activities, Therapeutic Exercises Modalities Cold Pack/Ice Massage,Hot Packs Next Visit Focus/Plan Next Note Type Treatment Note Next Visit Plan Shoulder ROM, pulleys, strengthening, posture training
--- NOTE | 2022-08-16 11:15 | PT.OTN ---
Current Diagnoses Pain in right shoulder (08/16/22) Pain in left shoulder (08/16/22) Stiffness of right shoulder, not elsewhere classified (08/16/22) Stiffness of left shoulder, not elsewhere classified (08/16/22) Physical Therapy Treatment Note PT-OP-A Visit Information Start: 05/11/22 14:17 Freq: Status: Active Protocol: Document 08/16/22 10:34 DCW (Rec: 08/16/22 11:15 DCW [id number]) Out-Patient Physical Therapy Visit Information Visit Information Visit Type Treatment Note Visit Start Time 10:34 Visit Stop Time 11:15 Total Visit Minutes 41 Visit Number 15 Number of RESIDENT ATHLETIC TRAINER Visits 0 Evaluation Information Evaluation Date 05/11/22 PT-OP-B Current Condition Start: 05/11/22 14:17 Freq: Status: Active Protocol: Document 05/11/22 12:00 DCW (Rec: 05/11/22 15:08 DCW [id number]) Current Condition History of Current Condition Onset Date 3 month history Current Complaints bilateral shoulder pain and stiffness History of Current Condition Pt is an 82 year old male presenting with a three month history of bilateral shoulder pain and stiffness, right worse than left. Pt unsure of any specific injury, but does note that there have been multiple occasions when he had to help his get up off the floor, which may have hurt his shoulder. Pt reports significant limitations reaching both up and back, especially putting on his jacket. Notes he has not had any imaging done of his shoulders, but he spoke with a friend of his who had to go through PT for shoulder pain, and he came out a new man, so he's looking forward to getting to do PT and helping to improve his shoulder function. PT-OP-C Subjective Start: 05/11/22 14:17 Freq: Status: Active Protocol: Document 08/16/22 10:34 DCW (Rec: 08/16/22 11:15 DCW [id number]) OP-PT Subjective Patient Comments Patient Comments Pt reports his shoulder is feeling good so far today. PT-OP-E Functional Tests Start: 05/11/22 14:17 Freq: Status: Active Protocol: Document 07/13/22 11:15 DCW (Rec: 07/13/22 11:36 DCW [id number]) Functional Tests Ronnieey's Scratch Test Action 1- Left Posterior opposite shoulder Action 1- Right Anterior opposite shoulder Action 2- Left C7 Action 2- Right C4 Action 3- Left T10 Action 3- Right L5 PT-OP-F Manual Assessment Start: 05/11/22 14:17 Freq: Status: Active Protocol: Document 07/13/22 11:15 DCW (Rec: 07/13/22 11:36 DCW [id number]) Manual Assessments Soft Tissue Assessment Soft Tissue Mobility Assessment Moderate tone right upper traps, levators, parascapulars , mild-moderate tone left upper traps, levators, parascapulars PT-OP-K Range of Motion Start: 05/11/22 14:17 Freq: Status: Active Protocol: Document 07/13/22 11:15 DCW (Rec: 07/13/22 11:36 DCW [id number]) Shoulder Goniometric Range of Motion Shoulder Right Passive Shoulder ROM WFL No Testing Position Supine Flexion 128 Abduction 99 External Rotation at 0 degrees Abduction 56 Right Active Shoulder ROM WFL No Testing Position Sitting Flexion 93 Abduction 92 External Rotation at 0 degrees Abduction 45 Internal Rotation Behind Back (text) L5 Left Passive Shoulder ROM WFL No Testing Position Supine Flexion 127 Abduction 122 External Rotation at 0 degrees Abduction 53 Left Active Shoulder ROM WFL No Testing Position Sitting Flexion 118 Abduction 105 External Rotation at 0 degrees Abduction 49 Internal Rotation Behind Back (text) T10 PT-OP-L Special Tests Start: 05/11/22 14:17 Freq: Status: Active Protocol: Document 07/13/22 11:15 DCW (Rec: 07/13/22 11:36 DCW [id number]) Special Tests Shoulder Special Tests Speed's Biceps Test Results Positive R Passive ER Rotator Cuff Test Results Positive bilaterally Lift-Off Rotator Cuff Test Results Positive bilaterally Solitario Marcus Impingement Test Results Positive bilaterally Grind Labrum Test Results Negative Empty Can Test Results Positive bilaterally Drop Arm Rotator Cuff Test Results Negative Clunk Test Test Results Negative Belly Press Test Results Positive R Apprehension Test Test Results Positive bilaterally AC Joint Compression Test Results Negative PT-OP-M Strength Start: 05/11/22 14:17 Freq: Status: Active Protocol: Document 07/13/22 11:15 DCW (Rec: 07/13/22 11:36 DCW [id number]) Shoulder Strength Shoulder Manual Muscle Testing Right Flexion 3+ Fair+ Abduction (C5) 2+ Poor+ External Rotation 4- Good- Internal Rotation 4+ Good+ Left Flexion 4- Good- Abduction (C5) 3- Fair- External Rotation 4+ Good+ Internal Rotation 4+ Good+ PT-OP-Q Treatments Start: 05/11/22 14:17 Freq: Status: Active Protocol: Document 08/16/22 10:34 DCW (Rec: 08/16/22 11:15 DCW [id number]) Cardio Equipment Upper Body Ergometer (UBE) Duration (Minutes) 6 RPM 60 Seat Position 11 Height 3.5 Therapeutic Exercises Standing Exercises IR Standing Exercise Name AAROM /c PVC Side bilateral Press Standing Exercise Name Press Side bilateral Resistance 10# Equipment Used PVC Pulleys Standing Exercise Name GH IR Pulleys Side right Other Exercises Wall Push-up Other Exercise Name Wall push-up Side bilateral Reps/Minutes x15 each position Comments <> and W hand positions Resisted Ambulation Other Exercise Name Resisted UE side-stepping Resistance Blue Manual Therapy Treatment Soft Tissue Mobilization Upper Trap Body Location R UT, Scalenes, SCM, Biceps Mobilization Type Sustained Pressure,Trigger Point Release Body Position Supine Parascapulars Body Location R parascapular musculature Mobilization Type Sustained Pressure,Trigger Point Release Body Position Supine Joint Mobilizations GH Joint R GH mobilization Direction Inferior Grade III Body Position Supine PT-OP-T Assessment and Plan Start: 05/11/22 14:17 Freq: Status: Active Protocol: Document 08/16/22 10:34 DCW (Rec: 08/16/22 11:15 DCW [id number]) Physical Therapy Assessment Impairments Impairments Functional Activities, Functional Mobility,Pain, Posture,ROM,Soft Tissue Mobility,Strength,Tone Goals Two Impairment Significant limitations with bilateral shoulder ROM Drawing In Hand Goal (LTG) Pt to demonstrate increase in shoulder ROM to at least 130? flexion and 120? abduction bilaterally in order to improve ability to reach up onto higher shelves. LTG Duration 09/12/22 - Improving One Impairment Pt does not have an appropriate home exercise program Short Term Goal (STG) Pt to be independent and compliant with an appropriate HEP STG Duration 08/13/22 Assessment Summary Assessment Pt showing good improvement, likely approaching discharge. Does have one more visit scheduled in ~1 month, would like to keep that for now to see how he does with a break from PT. Physical Therapy Plan Frequency and Duration Frequency of Treatment 2x/Week Plan of Care Start Date 07/13/22 Plan of Care End Date 09/12/22 Therapeutic Interventions Therapeutic Interventions Home Exercise Program,Joint Mobilizations,Manual Therapy, Patient/Caregiver Education, Self-Care/Home Management,Soft Tissue Mobilization, Therapeutic Activities, Therapeutic Exercises Modalities Cold Pack/Ice Massage,Hot Packs Next Visit Focus/Plan Next Note Type Treatment Note Next Visit Plan Shoulder ROM, pulleys, strengthening, posture training
--- NOTE | 2022-09-14 10:17 | PT.OTN ---
Current Diagnoses Pain in right shoulder (09/14/22) Pain in left shoulder (09/14/22) Stiffness of right shoulder, not elsewhere classified (09/14/22) Stiffness of left shoulder, not elsewhere classified (09/14/22) Physical Therapy Treatment Note PT-OP-A Visit Information Start: 05/11/22 14:17 Freq: Status: Active Protocol: Document 09/14/22 09:30 DCW (Rec: 09/14/22 10:17 DCW [id number]) Out-Patient Physical Therapy Visit Information Visit Information Visit Type Progress Note Visit Start Time 09:30 Visit Stop Time 10:15 Total Visit Minutes 45 Visit Number 16 Number of OCCUPATIONAL THERAPY TECHNICIAN Visits 0 Evaluation Information Evaluation Date 05/11/22 PT-OP-B Current Condition Start: 05/11/22 14:17 Freq: Status: Active Protocol: Document 05/11/22 12:00 DCW (Rec: 05/11/22 15:08 DCW [id number]) Current Condition History of Current Condition Onset Date 3 month history Current Complaints bilateral shoulder pain and stiffness History of Current Condition Pt is an 82 year old male presenting with a three month history of bilateral shoulder pain and stiffness, right worse than left. Pt unsure of any specific injury, but does note that there have been multiple occasions when he had to help his get up off the floor, which may have hurt his shoulder. Pt reports significant limitations reaching both up and back, especially putting on his jacket. Notes he has not had any imaging done of his shoulders, but he spoke with a friend of his who had to go through PT for shoulder pain, and he came out a new man, so he's looking forward to getting to do PT and helping to improve his shoulder function. PT-OP-C Subjective Start: 05/11/22 14:17 Freq: Status: Active Protocol: Document 09/14/22 09:30 DCW (Rec: 09/14/22 10:17 DCW [id number]) OP-PT Subjective Patient Comments Patient Comments Pt feels his HEP is helping a little, but not as much as I would like. Currently unable to think of any daily activities that he is unable to perform due to shoulder limitations. PT-OP-E Functional Tests Start: 05/11/22 14:17 Freq: Status: Active Protocol: Document 09/14/22 09:30 DCW (Rec: 09/14/22 09:54 DCW [id number]) Functional Tests Apley's Scratch Test Action 1- Left Posterior opposite shoulder Action 1- Right Left opposite shoulder Action 2- Left T2 Action 2- Right C7 Action 3- Left T8 Action 3- Right L1 PT-OP-F Manual Assessment Start: 05/11/22 14:17 Freq: Status: Active Protocol: Document 09/14/22 09:30 DCW (Rec: 09/14/22 09:54 DCW [id number]) Manual Assessments Soft Tissue Assessment Soft Tissue Mobility Assessment Mild-moderate tone bilateral upper traps, levators, parascapulars PT-OP-K Range of Motion Start: 05/11/22 14:17 Freq: Status: Active Protocol: Document 09/14/22 09:30 DCW (Rec: 09/14/22 09:54 DCW [id number]) Shoulder Goniometric Range of Motion Shoulder Right Passive Shoulder ROM WFL No Testing Position Supine Flexion 126 Abduction 112 External Rotation at 0 degrees Abduction 52 Right Active Shoulder ROM WFL No Testing Position Sitting Flexion 105 Abduction 97 External Rotation at 0 degrees Abduction 45 Internal Rotation Behind Back (text) L1 Left Passive Shoulder ROM WFL No Testing Position Supine Flexion 138 Abduction 139 External Rotation at 0 degrees Abduction 54 Left Active Shoulder ROM WFL No Testing Position Sitting Flexion 118 Abduction 110 External Rotation at 0 degrees Abduction 54 Internal Rotation Behind Back (text) T8 PT-OP-L Special Tests Start: 05/11/22 14:17 Freq: Status: Active Protocol: Document 09/14/22 09:30 DCW (Rec: 09/14/22 09:54 DCW [id number]) Special Tests Shoulder Special Tests Speed's Biceps Test Results Mildly Positive Right Passive ER Rotator Cuff Test Results Negative Lift-Off Rotator Cuff Test Results Positive right Solitario Marcus Impingement Test Results Positive right Grind Labrum Test Results Negative Empty Can Test Results Negative Drop Arm Rotator Cuff Test Results Negative Clunk Test Test Results Negative Belly Press Test Results Negative Apprehension Test Test Results Positive bilaterally AC Joint Compression Test Results Negative PT-OP-M Strength Start: 05/11/22 14:17 Freq: Status: Active Protocol: Document 09/14/22 09:30 DCW (Rec: 09/14/22 09:54 DCW [id number]) Shoulder Strength Shoulder Manual Muscle Testing Right Flexion 3+ Fair+ Abduction (C5) 3- Fair- External Rotation 4 Good Internal Rotation 4+ Good+ Left Flexion 4 Good Abduction (C5) 3- Fair- External Rotation 4+ Good+ Internal Rotation 4+ Good+ PT-OP-Q Treatments Start: 05/11/22 14:17 Freq: Status: Active Protocol: Document 09/14/22 09:30 DCW (Rec: 09/14/22 10:17 DCW [id number]) Manual Therapy Treatment Soft Tissue Mobilization Upper Trap Body Location R UT, Scalenes, SCM, Biceps Mobilization Type Sustained Pressure,Trigger Point Release Body Position Supine Parascapulars Body Location R parascapular musculature Mobilization Type Sustained Pressure,Trigger Point Release Body Position Supine Joint Mobilizations GH Joint R GH mobilization Direction Inferior Grade III Body Position Supine PT-OP-T Assessment and Plan Start: 05/11/22 14:17 Freq: Status: Active Protocol: Document 09/14/22 09:30 DCW (Rec: 09/14/22 10:17 DCW [id number]) Physical Therapy Assessment Impairments Impairments Functional Activities, Functional Mobility,Pain, Posture,ROM,Soft Tissue Mobility,Strength,Tone Goals Two Impairment Significant limitations with bilateral shoulder ROM Electric Transfer Operator Goal (LTG) Pt to demonstrate increase in shoulder ROM to at least 130? flexion and 120? abduction bilaterally in order to improve ability to reach up onto higher shelves. LTG Duration 11/14/22 - Improving One Impairment Pt does not have an appropriate home exercise program Short Term Goal (STG) Pt to be independent and compliant with an appropriate HEP STG Duration 10/15/22 Assessment Summary Assessment Pt continues to make fairly slow yet steady improvements in pain and shoulder ROM. Currently at the point where he is doing well with HEP, does not feel like he is limited on a daily basis from his usual activities, but is still fairly limited with shoulder ROM. Agreeable to schedule a few follow-up visits in ~1 month, and in the mean time, increase consistency with performing HEP and try to improve ROM independently. Physical Therapy Plan Frequency and Duration Frequency of Treatment 2x/Week Plan of Care Start Date 09/14/22 Plan of Care End Date 11/14/22 Therapeutic Interventions Therapeutic Interventions Home Exercise Program,Joint Mobilizations,Manual Therapy, Patient/Caregiver Education, Self-Care/Home Management,Soft Tissue Mobilization, Therapeutic Activities, Therapeutic Exercises Modalities Cold Pack/Ice Massage,Hot Packs Next Visit Focus/Plan Next Note Type Treatment Note Next Visit Plan Shoulder ROM, pulleys, strengthening, posture training
--- NOTE | 2022-09-14 11:02 | PT.OPPN ---
Current Diagnoses Pain in right shoulder (09/14/22) Pain in left shoulder (09/14/22) Stiffness of right shoulder, not elsewhere classified (09/14/22) Stiffness of left shoulder, not elsewhere classified (09/14/22) Physical Therapy Progress Note PT-OP-A Visit Information Start: 05/11/22 14:17 Freq: Status: Active Protocol: Document 09/14/22 09:30 DCW (Rec: 09/14/22 10:17 DCW [id number]) Out-Patient Physical Therapy Visit Information Visit Information Visit Type Progress Note Visit Start Time 09:30 Visit Stop Time 10:15 Total Visit Minutes 45 Visit Number 16 Number of CLINICAL RESEARCH MANAGER Visits 0 Evaluation Information Evaluation Date 05/11/22 PT-OP-B Current Condition Start: 05/11/22 14:17 Freq: Status: Active Protocol: Document 05/11/22 12:00 DCW (Rec: 05/11/22 15:08 DCW [id number]) Current Condition History of Current Condition Onset Date 3 month history Current Complaints bilateral shoulder pain and stiffness History of Current Condition Pt is an 82 year old male presenting with a three month history of bilateral shoulder pain and stiffness, right worse than left. Pt unsure of any specific injury, but does note that there have been multiple occasions when he had to help his get up off the floor, which may have hurt his shoulder. Pt reports significant limitations reaching both up and back, especially putting on his jacket. Notes he has not had any imaging done of his shoulders, but he spoke with a friend of his who had to go through PT for shoulder pain, and he came out a new man, so he's looking forward to getting to do PT and helping to improve his shoulder function. PT-OP-C Subjective Start: 05/11/22 14:17 Freq: Status: Active Protocol: Document 09/14/22 09:30 DCW (Rec: 09/14/22 10:17 DCW [id number]) OP-PT Subjective Patient Comments Patient Comments Pt feels his HEP is helping a little, but not as much as I would like. Currently unable to think of any daily activities that he is unable to perform due to shoulder limitations. PT-OP-E Functional Tests Start: 05/11/22 14:17 Freq: Status: Active Protocol: Document 09/14/22 09:30 DCW (Rec: 09/14/22 09:54 DCW [id number]) Functional Tests Apley's Scratch Test Action 1: The subject is instructed to touch the opposite shoulder with his/her hand. This motion checks Glenohumeral adduction, internal rotation , horizontal adduction and scapular protraction Action 2: The subject is instructed to place his/her arm overhead and reach behind the neck to touch his/her upper back. This motion checks Glenohumeral abduction, external rotation and scapular upward rotation and elevation. Action 3: The subject puts his/her hand on the lower back and reaches upward as far as possible. This motion checks glenohumeral adduction, internal rotation and scapular retraction with downward rotation Action 1- Left Posterior opposite shoulder Action 1- Right Left opposite shoulder Action 2- Left T2 Action 2- Right C7 Action 3- Left T8 Action 3- Right L1 PT-OP-F Manual Assessment Start: 05/11/22 14:17 Freq: Status: Active Protocol: Document 09/14/22 09:30 DCW (Rec: 09/14/22 09:54 DCW [id number]) Manual Assessments Soft Tissue Assessment Soft Tissue Mobility Assessment Mild-moderate tone bilateral upper traps, levators, parascapulars PT-OP-K Range of Motion Start: 05/11/22 14:17 Freq: Status: Active Protocol: Document 09/14/22 09:30 DCW (Rec: 09/14/22 09:54 DCW [id number]) Shoulder Goniometric Range of Motion Shoulder Measured in Degrees Right Passive Shoulder ROM WFL No Testing Position Supine Flexion 126 Abduction 112 External Rotation at 0 degrees Abduction 52 Right Active Shoulder ROM WFL No Testing Position Sitting Flexion 105 Abduction 97 External Rotation at 0 degrees Abduction 45 Internal Rotation Behind Back (text) L1 Left Passive Shoulder ROM WFL No Testing Position Supine Flexion 138 Abduction 139 External Rotation at 0 degrees Abduction 54 Left Active Shoulder ROM WFL No Testing Position Sitting Flexion 118 Abduction 110 External Rotation at 0 degrees Abduction 54 Internal Rotation Behind Back (text) T8 PT-OP-L Special Tests Start: 05/11/22 14:17 Freq: Status: Active Protocol: Document 09/14/22 09:30 DCW (Rec: 09/14/22 09:54 DCW [id number]) Special Tests Shoulder Special Tests Speed's Biceps Test Results Mildly Positive Right Passive ER Rotator Cuff Test Results Negative Lift-Off Rotator Cuff Test Results Positive right Solitario Marcus Impingement Test Results Positive right Grind Labrum Test Results Negative Empty Can Test Results Negative Drop Arm Rotator Cuff Test Results Negative Clunk Test Test Results Negative Belly Press Test Results Negative Apprehension Test Test Results Positive bilaterally AC Joint Compression Test Results Negative PT-OP-M Strength Start: 05/11/22 14:17 Freq: Status: Active Protocol: Document 09/14/22 09:30 DCW (Rec: 09/14/22 09:54 DCW [id number]) Shoulder Strength Shoulder Manual Muscle Testing Right Flexion 3+ Fair+ Abduction (C5) 3- Fair- External Rotation 4 Good Internal Rotation 4+ Good+ Left Flexion 4 Good Abduction (C5) 3- Fair- External Rotation 4+ Good+ Internal Rotation 4+ Good+ PT-OP-T Assessment and Plan Start: 05/11/22 14:17 Freq: Status: Active Protocol: Document 09/14/22 09:30 DCW (Rec: 09/14/22 10:17 DCW [id number]) Physical Therapy Assessment Impairments Impairments Functional Activities, Functional Mobility,Pain, Posture,ROM,Soft Tissue Mobility,Strength,Tone Goals Two Impairment Significant limitations with bilateral shoulder ROM Life Skills Coordinator Volunteer Goal (LTG) Pt to demonstrate increase in shoulder ROM to at least 130? flexion and 120? abduction bilaterally in order to improve ability to reach up onto higher shelves. LTG Duration 11/14/22 - Improving One Impairment Pt does not have an appropriate home exercise program Short Term Goal (STG) Pt to be independent and compliant with an appropriate HEP STG Duration 10/15/22 Assessment Summary Assessment Pt continues to make fairly slow yet steady improvements in pain and shoulder ROM. Currently at the point where he is doing well with HEP, does not feel like he is limited on a daily basis from his usual activities, but is still fairly limited with shoulder ROM. Agreeable to schedule a few follow-up visits in ~1 month, and in the mean time, increase consistency with performing HEP and try to improve ROM independently. Physical Therapy Plan Frequency and Duration Frequency of Treatment 1-2x/week Plan of Care Start Date 09/14/22 Plan of Care End Date 11/14/22 Therapeutic Interventions Therapeutic Interventions Home Exercise Program,Joint Mobilizations,Manual Therapy, Patient/Caregiver Education, Self-Care/Home Management,Soft Tissue Mobilization, Therapeutic Activities, Therapeutic Exercises Modalities Cold Pack/Ice Massage,Hot Packs Next Visit Focus/Plan Next Note Type Treatment Note Next Visit Plan Shoulder ROM, pulleys, strengthening, posture training
--- NOTE | 2022-09-14 11:03 | PT.OPPOC ---
Physical, Occupational & Speech Therapy At [facility] Current Diagnoses Pain in right shoulder (09/14/22) Pain in left shoulder (09/14/22) Stiffness of right shoulder, not elsewhere classified (09/14/22) Stiffness of left shoulder, not elsewhere classified (09/14/22) Visit Care Team Role Provider Type Demetri Ca MD Attending Provider Physician Family Provider Primary Care Provider Referring Provider Specialty: Internal Medicine Address: [address] [place] [address], [address], [facility] Email: [email or web address] Plan Of Care PT-OP-T Assessment and Plan Start: 05/11/22 14:17 Freq: Status: Active Protocol: Document 09/14/22 09:30 DCW (Rec: 09/14/22 10:17 DCW [id number]) Physical Therapy Assessment Impairments Impairments Functional Activities, Functional Mobility,Pain, Posture,ROM,Soft Tissue Mobility,Strength,Tone Goals Two Impairment Significant limitations with bilateral shoulder ROM Penitentiary Goal (LTG) Pt to demonstrate increase in shoulder ROM to at least 130? flexion and 120? abduction bilaterally in order to improve ability to reach up onto higher shelves. LTG Duration 11/14/22 - Improving One Impairment Pt does not have an appropriate home exercise program Short Term Goal (STG) Pt to be independent and compliant with an appropriate HEP STG Duration 10/15/22 Assessment Summary Assessment Pt continues to make fairly slow yet steady improvements in pain and shoulder ROM. Currently at the point where he is doing well with HEP, does not feel like he is limited on a daily basis from his usual activities, but is still fairly limited with shoulder ROM. Agreeable to schedule a few follow-up visits in ~1 month, and in the mean time, increase consistency with performing HEP and try to improve ROM independently. Physical Therapy Plan Frequency and Duration Frequency of Treatment 1-2x/week Plan of Care Start Date 09/14/22 Plan of Care End Date 11/14/22 Therapeutic Interventions Therapeutic Interventions Home Exercise Program,Joint Mobilizations,Manual Therapy, Patient/Caregiver Education, Self-Care/Home Management,Soft Tissue Mobilization, Therapeutic Activities, Therapeutic Exercises Modalities Cold Pack/Ice Massage,Hot Packs Next Visit Focus/Plan Next Note Type Treatment Note Next Visit Plan Shoulder ROM, pulleys, strengthening, posture training Plan of Care Dates Plan of Care Start Date 09/14/22 Plan of Care End Date 11/14/22 Electronically Signed by: Kaiden Billings, PT 09/14/22 2838 If you are in agreement with this Plan of Care, please return a signed and dated copy. I have reviewed this Plan of Care and certify that the skilled therapy services above are required to meet the patient?s needs. Physician Signature Date Printed Name and Credentials Clinical Instructor Signature Printed Name and Credentials
--- NOTE | 2022-10-19 12:43 | PT.OTN ---
Current Diagnoses Pain in right shoulder (10/19/22) Pain in left shoulder (10/19/22) Stiffness of right shoulder, not elsewhere classified (10/19/22) Stiffness of left shoulder, not elsewhere classified (10/19/22) Physical Therapy Treatment Note PT-OP-A Visit Information Start: 05/11/22 14:17 Freq: Status: Active Protocol: Document 10/19/22 12:03 DCW (Rec: 10/19/22 12:43 DCW [id number]) Out-Patient Physical Therapy Visit Information Visit Information Visit Type Treatment Note Visit Start Time 12:03 Visit Stop Time 12:45 Total Visit Minutes 42 Visit Number 17 Number of REGISTERED NURSE MIDWIFE Visits 0 Evaluation Information Evaluation Date 05/11/22 PT-OP-B Current Condition Start: 05/11/22 14:17 Freq: Status: Active Protocol: Document 05/11/22 12:00 DCW (Rec: 05/11/22 15:08 DCW [id number]) Current Condition History of Current Condition Onset Date 3 month history Current Complaints bilateral shoulder pain and stiffness History of Current Condition Pt is an 82 year old male presenting with a three month history of bilateral shoulder pain and stiffness, right worse than left. Pt unsure of any specific injury, but does note that there have been multiple occasions when he had to help his get up off the floor, which may have hurt his shoulder. Pt reports significant limitations reaching both up and back, especially putting on his jacket. Notes he has not had any imaging done of his shoulders, but he spoke with a friend of his who had to go through PT for shoulder pain, and he came out a new man, so he's looking forward to getting to do PT and helping to improve his shoulder function. PT-OP-C Subjective Start: 05/11/22 14:17 Freq: Status: Active Protocol: Document 10/19/22 12:03 DCW (Rec: 10/19/22 12:43 DCW [id number]) OP-PT Subjective Patient Comments Patient Comments Pt reports shoulders are some better, but still bother him a bit when reaching. Does feel that he is some better following a ~4 week break from PT. PT-OP-E Functional Tests Start: 05/11/22 14:17 Freq: Status: Active Protocol: Document 09/14/22 09:30 DCW (Rec: 09/14/22 09:54 DCW [id number]) Functional Tests Apley's Scratch Test Action 1- Left Posterior opposite shoulder Action 1- Right Left opposite shoulder Action 2- Left T2 Action 2- Right C7 Action 3- Left T8 Action 3- Right L1 PT-OP-F Manual Assessment Start: 05/11/22 14:17 Freq: Status: Active Protocol: Document 09/14/22 09:30 DCW (Rec: 09/14/22 09:54 DCW [id number]) Manual Assessments Soft Tissue Assessment Soft Tissue Mobility Assessment Mild-moderate tone bilateral upper traps, levators, parascapulars PT-OP-K Range of Motion Start: 05/11/22 14:17 Freq: Status: Active Protocol: Document 09/14/22 09:30 DCW (Rec: 09/14/22 09:54 DCW [id number]) Shoulder Goniometric Range of Motion Shoulder Right Passive Shoulder ROM WFL No Testing Position Supine Flexion 126 Abduction 112 External Rotation at 0 degrees Abduction 52 Right Active Shoulder ROM WFL No Testing Position Sitting Flexion 105 Abduction 97 External Rotation at 0 degrees Abduction 45 Internal Rotation Behind Back (text) L1 Left Passive Shoulder ROM WFL No Testing Position Supine Flexion 138 Abduction 139 External Rotation at 0 degrees Abduction 54 Left Active Shoulder ROM WFL No Testing Position Sitting Flexion 118 Abduction 110 External Rotation at 0 degrees Abduction 54 Internal Rotation Behind Back (text) T8 PT-OP-L Special Tests Start: 05/11/22 14:17 Freq: Status: Active Protocol: Document 09/14/22 09:30 DCW (Rec: 09/14/22 09:54 DCW [id number]) Special Tests Shoulder Special Tests Speed's Biceps Test Results Mildly Positive Right Passive ER Rotator Cuff Test Results Negative Lift-Off Rotator Cuff Test Results Positive right Solitario Marcus Impingement Test Results Positive right Grind Labrum Test Results Negative Empty Can Test Results Negative Drop Arm Rotator Cuff Test Results Negative Clunk Test Test Results Negative Belly Press Test Results Negative Apprehension Test Test Results Positive bilaterally AC Joint Compression Test Results Negative PT-OP-M Strength Start: 05/11/22 14:17 Freq: Status: Active Protocol: Document 09/14/22 09:30 DCW (Rec: 09/14/22 09:54 DCW [id number]) Shoulder Strength Shoulder Manual Muscle Testing Right Flexion 3+ Fair+ Abduction (C5) 3- Fair- External Rotation 4 Good Internal Rotation 4+ Good+ Left Flexion 4 Good Abduction (C5) 3- Fair- External Rotation 4+ Good+ Internal Rotation 4+ Good+ PT-OP-Q Treatments Start: 05/11/22 14:17 Freq: Status: Active Protocol: Document 10/19/22 12:03 DCW (Rec: 10/19/22 12:43 DCW [id number]) Cardio Equipment Upper Body Ergometer (UBE) Duration (Minutes) 6 RPM 60 Seat Position 11 Height 3.5 Therapeutic Exercises Supine Exercises Shoulder Flexion Supine Exercise Name Shoulder Flexion Side bilateral Resistance PVC /c 10# Standing Exercises IR Standing Exercise Name Lifting up PVC up back Side bilateral Resistance 10# Press Standing Exercise Name Press Side bilateral Resistance 10# Equipment Used PVC Extension Standing Exercise Name PVC Side bilateral Resistance 10# Other Exercises Wall Push-up Other Exercise Name Wall push-up Side bilateral Reps/Minutes x15 each position Comments <> and W hand positions Resisted Ambulation Other Exercise Name Resisted UE side-stepping Resistance Blue Manual Therapy Treatment Soft Tissue Mobilization Upper Trap Body Location B UT, Scalenes, SCM, Biceps Mobilization Type Sustained Pressure,Trigger Point Release Body Position Supine Parascapulars Body Location R parascapular musculature Mobilization Type Sustained Pressure,Trigger Point Release Body Position Supine Joint Mobilizations GH Joint R GH mobilization Direction Inferior Grade III Body Position Supine PT-OP-T Assessment and Plan Start: 05/11/22 14:17 Freq: Status: Active Protocol: Document 10/19/22 12:03 DCW (Rec: 10/19/22 12:43 DCW [id number]) Physical Therapy Assessment Impairments Impairments Functional Activities, Functional Mobility,Pain, Posture,ROM,Soft Tissue Mobility,Strength,Tone Goals Two Impairment Significant limitations with bilateral shoulder ROM Correction Goal (LTG) Pt to demonstrate increase in shoulder ROM to at least 130? flexion and 120? abduction bilaterally in order to improve ability to reach up onto higher shelves. LTG Duration 11/14/22 - Improving One Impairment Pt does not have an appropriate home exercise program Short Term Goal (STG) Pt to be independent and compliant with an appropriate HEP STG Duration 10/15/22 Assessment Summary Assessment Pt has not lost any functional mobility over long break from PT, will likely discharge following next two visits. Still slightly limited with end-range ROM, but doing well with HEP. Physical Therapy Plan Frequency and Duration Frequency of Treatment 1-2x/week Plan of Care Start Date 09/14/22 Plan of Care End Date 11/14/22 Therapeutic Interventions Therapeutic Interventions Home Exercise Program,Joint Mobilizations,Manual Therapy, Patient/Caregiver Education, Self-Care/Home Management,Soft Tissue Mobilization, Therapeutic Activities, Therapeutic Exercises Modalities Cold Pack/Ice Massage,Hot Packs Next Visit Focus/Plan Next Note Type Treatment Note Next Visit Plan Shoulder ROM, pulleys, strengthening, posture training
--- NOTE | 2022-11-02 12:36 | PT.OTN ---
Current Diagnoses Pain in right shoulder (11/02/22) Pain in left shoulder (11/02/22) Stiffness of right shoulder, not elsewhere classified (11/02/22) Stiffness of left shoulder, not elsewhere classified (11/02/22) Physical Therapy Treatment Note PT-OP-A Visit Information Start: 05/11/22 14:17 Freq: Status: Active Protocol: Document 11/02/22 12:00 DCW (Rec: 11/02/22 12:35 DCW [id number]) Out-Patient Physical Therapy Visit Information Visit Information Visit Type Discharge Summary Visit Start Time 12:00 Visit Stop Time 12:30 Total Visit Minutes 30 Visit Number 18 Number of LIGHTING SPECIALIST Visits 0 Evaluation Information Evaluation Date 05/11/22 PT-OP-B Current Condition Start: 05/11/22 14:17 Freq: Status: Active Protocol: Document 05/11/22 12:00 DCW (Rec: 05/11/22 15:08 DCW [id number]) Current Condition History of Current Condition Onset Date 3 month history Current Complaints bilateral shoulder pain and stiffness History of Current Condition Pt is an 82 year old male presenting with a three month history of bilateral shoulder pain and stiffness, right worse than left. Pt unsure of any specific injury, but does note that there have been multiple occasions when he had to help his get up off the floor, which may have hurt his shoulder. Pt reports significant limitations reaching both up and back, especially putting on his jacket. Notes he has not had any imaging done of his shoulders, but he spoke with a friend of his who had to go through PT for shoulder pain, and he came out a new man, so he's looking forward to getting to do PT and helping to improve his shoulder function. PT-OP-C Subjective Start: 05/11/22 14:17 Freq: Status: Active Protocol: Document 11/02/22 12:00 DCW (Rec: 11/02/22 12:35 DCW [id number]) OP-PT Subjective Patient Comments Patient Comments Pt fantastic! Well, my arm doesn't completely function how I would want it to, but it does function. PT-OP-E Functional Tests Start: 05/11/22 14:17 Freq: Status: Active Protocol: Document 11/02/22 12:00 DCW (Rec: 11/02/22 12:36 DCW [id number]) Functional Tests Apley's Scratch Test Action 1- Left Posterior opposite shoulder Action 1- Right Posterior opposite shoulder Action 2- Left T3 Action 2- Right T3 Action 3- Left T8 Action 3- Right L1 PT-OP-F Manual Assessment Start: 05/11/22 14:17 Freq: Status: Active Protocol: Document 09/14/22 09:30 DCW (Rec: 09/14/22 09:54 DCW [id number]) Manual Assessments Soft Tissue Assessment Soft Tissue Mobility Assessment Mild-moderate tone bilateral upper traps, levators, parascapulars PT-OP-K Range of Motion Start: 05/11/22 14:17 Freq: Status: Active Protocol: Document 11/02/22 12:00 DCW (Rec: 11/02/22 12:36 DCW [id number]) Shoulder Goniometric Range of Motion Shoulder Right Active Testing Position Sitting Flexion 122 Abduction 108 External Rotation at 0 degrees Abduction 55 Internal Rotation Behind Back (text) L1 Left Active Testing Position Sitting Flexion 134 Abduction 110 External Rotation at 0 degrees Abduction 60 Internal Rotation Behind Back (text) T8 PT-OP-L Special Tests Start: 05/11/22 14:17 Freq: Status: Active Protocol: Document 09/14/22 09:30 DCW (Rec: 09/14/22 09:54 DCW [id number]) Special Tests Shoulder Special Tests Speed's Biceps Test Results Mildly Positive Right Passive ER Rotator Cuff Test Results Negative Lift-Off Rotator Cuff Test Results Positive right Solitario Marcus Impingement Test Results Positive right Grind Labrum Test Results Negative Empty Can Test Results Negative Drop Arm Rotator Cuff Test Results Negative Clunk Test Test Results Negative Belly Press Test Results Negative Apprehension Test Test Results Positive bilaterally AC Joint Compression Test Results Negative PT-OP-M Strength Start: 05/11/22 14:17 Freq: Status: Active Protocol: Document 09/14/22 09:30 DCW (Rec: 09/14/22 09:54 DCW [id number]) Shoulder Strength Shoulder Manual Muscle Testing Right Flexion 3+ Fair+ Abduction (C5) 3- Fair- External Rotation 4 Good Internal Rotation 4+ Good+ Left Flexion 4 Good Abduction (C5) 3- Fair- External Rotation 4+ Good+ Internal Rotation 4+ Good+ PT-OP-Q Treatments Start: 05/11/22 14:17 Freq: Status: Active Protocol: Document 11/02/22 12:00 DCW (Rec: 11/02/22 12:35 DCW [id number]) Cardio Equipment Upper Body Ergometer (UBE) Duration (Minutes) 6 RPM 60 Seat Position 11 Height 3.5 Manual Therapy Treatment Soft Tissue Mobilization Upper Trap Body Location B UT, Scalenes, SCM, Biceps Mobilization Type Sustained Pressure,Trigger Point Release Body Position Supine Parascapulars Body Location R parascapular musculature Mobilization Type Sustained Pressure,Trigger Point Release Body Position Supine Joint Mobilizations GH Joint R GH mobilization Direction Inferior Grade III Body Position Supine PT-OP-T Assessment and Plan Start: 05/11/22 14:17 Freq: Status: Active Protocol: Document 11/02/22 12:00 DCW (Rec: 11/02/22 12:35 DCW [id number]) Physical Therapy Assessment Impairments Impairments Functional Activities, Functional Mobility,Pain, Posture,ROM,Soft Tissue Mobility,Strength,Tone Goals Two Impairment Significant limitations with bilateral shoulder ROM Retirement Goal (LTG) Pt to demonstrate increase in shoulder ROM to at least 130? flexion and 120? abduction bilaterally in order to improve ability to reach up onto higher shelves. LTG Duration 11/14/22 - Improving One Impairment Pt does not have an appropriate home exercise program Short Term Goal (STG) Pt to be independent and compliant with an appropriate HEP STG Duration Met Progress Towards Goals Progress Towards Goals Progressing Toward Goals Assessment Summary Assessment Pt continues to improve functionally, not really expressing any lingering complaints, other than just feels that his arms are a little less mobile than he is used to, but very happy with current progress, and demonstrates good understanding of continuing independent HEP. Pt appropriate for discharge at this time. Physical Therapy Plan Frequency and Duration Frequency of Treatment 1-2x/week Plan of Care Start Date 09/14/22 Plan of Care End Date 11/14/22 Therapeutic Interventions Therapeutic Interventions Home Exercise Program,Joint Mobilizations,Manual Therapy, Patient/Caregiver Education, Self-Care/Home Management,Soft Tissue Mobilization, Therapeutic Activities, Therapeutic Exercises Modalities Cold Pack/Ice Massage,Hot Packs Discharge Physical Therapy Discharge Comments Discharge to independent HEP Next Visit Focus/Plan Next Note Type Discharge Summary
== END 2022-11-07 14:08 | disposition home or self-care (01) ==
LOC: PHYS 12:00
PROVIDERS: Family Provider Internal Medicine; PCP Internal Medicine; Referring Provider Internal Medicine; Visit Provider Internal Medicine
DX: M25.511 Pain in right shoulder (principal); M25.512 Pain in left shoulder; M25.612 Stiffness of left shoulder, not elsewhere classified; M25.611 Stiffness of right shoulder, not elsewhere classified
CPT/HCPCS: 97110; 97140; 97162

== ENCOUNTER → 2023-02-08 07:10 | Outpatient (CLI) | payer OTHER, SELFPAY ==
[2021-03-25 22:38] VITALS: BMI 28.8
[2023-02-08 08:59] LABS: Alanine Aminotransferase 13 IU/L (<50); Albumin 3.8 g/dL (3.5-5.0); Albumin Globulin Ratio 1.5 (1.0-2.8); Alkaline Phosphatase 67 U/L (38-126); Aspartate Aminotransferase 16 IU/L (17-59); BUN Creatinine Ratio 15.4 (6-22); Bilirubin Total 0.5 mg/dL (0.2-1.3); Blood Urea Nitrogen 18 mg/dL (9-20); Calcium 9.7 mg/dL (8.4-10.2); Carbon Dioxide 31 mmol/L (22-32); Chloride 100 mmol/L (98-107); Cholesterol 175 mg/dL (140-199); Estimated Glomerular Filt Rate > 60 mL/min (>60); Globulin 2.6 g/dL (1.7-4.1); Glucose 136 mg/dL (80-110); HDL Cholesterol 56 mg/dL (40-60); HEMOLYSIS < 15 (0-50); LDL Cholesterol Calculated 92 mg/dL (<100); Potassium 4.3 mmol/L (3.4-5.1); Sodium 138 mmol/L (137-145); Total Protein 6.4 g/dL (6.3-8.2); Triglycerides 137 mg/dL (35-150)
[2023-02-08 09:45] LABS: Hemoglobin A1C% w Est Avg Glu 7.1 % (4.0-6.0)
[2023-02-08 12:58] LABS: Creatinine Urine Random 86.2 mg/dL
[2023-02-08 13:03] LABS: Microalbumi Creatinin Ratio Ur 10.4 ug/mg CR (<30); Microalbumin Urine Random 0.9 mg/dL (0-1.6)
== END ==
PROVIDERS: Family Provider Internal Medicine; PCP Internal Medicine; Referring Provider Internal Medicine; Visit Provider Internal Medicine
DX: E11.9 Type 2 diabetes mellitus without complications (principal); E78.2 Mixed hyperlipidemia; I25.10 Atherosclerotic heart disease of native coronary artery without angina pectoris
CPT/HCPCS: 36415; 80053; 80061; 82043; 82570; 83036

== ENCOUNTER → 2023-06-04 16:50 | Outpatient (CLI) | payer OTHER, SELFPAY ==
[2021-03-25 22:38] VITALS: BMI 28.8
== END ==
PROVIDERS: Family Provider Internal Medicine; PCP Internal Medicine; Visit Provider Nurse Practitioner Family
DX: L02.91 Cutaneous abscess, unspecified (principal)
CPT/HCPCS: 87070; 87075; 87205

== ENCOUNTER 2023-06-07 21:30 | Observation (INO) | payer MEDICARE, SELFPAY ==
[2023-06-07 10:49] VITALS: BMI 28.8
--- NOTE | 2023-06-07 21:33 | ED.GENADULT ---
HPI - General Adult General Chief complaint: GI Bleed Stated complaint: Blood in toilet Time Seen by Provider: 06/07/23 21:32 History of Present Illness HPI narrative: 83-year-old male with history of coronary artery disease, diabetes, hyperlipidemia presents with a chief complaint of 2 episodes maroon colored watery stools tonight. He feels a bit fatigued and perhaps bloated and nauseated but denies any pain. He denies any change in diet or medications. He does not take blood thinners, only aspirin. He has never had a colonoscopy. He denies any alcohol history and takes no NSAIDs. He has a poor appetite and has felt increasingly fatigued over the course of the day. Related Data Home Medications Medication Instructions Recorded Confirmed aspirin 81 mg tablet,delayed 81 mg PO QAM ##0 10/12/16 06/04/23 release budesonide 0.5 mg/2 mL suspension 0.5 mg inhalation Q2HR PRN sob 04/06/21 06/04/23 for nebulization diphenhydramine HCl 25 mg capsule See Rx Instructions PO DAILY 02/14/23 06/04/23 (Benadryl) Previous Rx's Medication Instructions Recorded blood-glucose meter #1 ea 04/29/22 metformin 500 mg tablet 500 mg PO BIDCC #180 tabs 08/02/22 simvastatin 20 mg tablet 20 mg PO HS #90 tabs 08/02/22 blood sugar diagnostic (Accu-Chek #100 ea 02/01/23 Guide test strips) tamsulosin 0.4 mg capsule (Flomax) 0.4 mg PO BID #180 caps 02/06/23 lancets (Accu-Chek Softclix #100 ea 02/08/23 Lancets) Allergies Allergy/AdvReac Type Severity Reaction Status Date / Time No Known Drug Allergies Allergy Verified 06/04/23 16:34 Review of Systems Review of Systems Narrative: GENERAL: See HPI HEENT: Denies sinus pain, ear pain, sore throat, difficulty swallowing, dizziness. RESPIRATORY: Denies dyspnea, cough, wheezing, hemoptysis, sputum. CARDIOVASCULAR: Denies chest pain, palpitations, orthopnea, edema, GASTROINTESTINAL: See HPI : Denies dysuria, frequency, incontinence, hematuria, urinary retention. MUSCULOSKELETAL: denies weakness, joint pain, or bony pain SKIN: Denies rash, skin lesions, or other NEUROLOGIC: Denies weakness, headache, numbness, change in speech, confusion, seizures, incoordination. PSYCHIATRIC: No concerning psychosocial issues. 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 Well-developed patient, in mild distress. Slightly pale, appears weak HEAD: Atraumatic. Normocephalic. EYES: Pupils equal round and reactive. Extraocular motions intact. No scleral icterus. No injection or drainage. ENT: Nose without bleeding, purulent drainage. Throat without erythema, tonsillar hypertrophy or exudate. Airway patent. NECK: Trachea midline. Non tender CARDIOVASCULAR: Regular rate and rhythm without murmurs, gallops, or rubs. RESPIRATORY: Clear to auscultation. Breath sounds equal bilaterally. No wheezes, rales, or rhonchi. GASTROINTESTINAL: Abdomen soft, non-tender, nondistended. Bowel sounds present RECTAL: Deferred as he produced a stool sample, HEME POS EXTREMITIES: No edema or joint tenderness. BACK: Nontender without deformity or crepitance. No flank tenderness. NEURO: AOx3. SKIN: No rash or erythema of visible areas Initial Vital Signs Initial Vital Signs: Vital Signs Temperature 97.7 F 06/07/23 21:42 Pulse Rate 89 06/07/23 21:42 Respiratory Rate 19 06/07/23 21:42 Blood Pressure 145/74 H 06/07/23 21:42 Pulse Oximetry 99 06/07/23 21:42 Oxygen Delivery Method Room Air 06/07/23 21:42 Course Course Course Narrative: Patient has had 2 episodes with a blood pressure that is dropped but quickly rebalance to a blood pressure over 115. He produced a relatively large maroon colored gelatinous stool Orders Ordered: ED Orders 06/07/23 21:50 Complete Blood Count AUTO DIFF Stat Comprehensive Metabolic Panel Stat Magnesium Stat Type and Screen Stat 06/08/23 00:32 GI Panel (Film Array) Stat 06/08/23 00:33 HH [Hemoglobin and Hematocrit] Stat 06/08/23 00:43 CT abdomen pelvis w con Stat 06/08/23 01:52 HH [Hemoglobin and Hematocrit] Stat Sodium Chloride (Normal Saline 0.45%) 1,000 mls @ 100 mls/hr IV CONT LIGIA Dextrose (D10w) 100 mls @ 1,200 mls/hr IV PRN PRN PRN Reason: Hypoglycemia Insulin Human Lispro (Insulin Lispro 100 Unit/Ml 3ml Vial) 0 unit SUBCUT ACHS LIGIA; Protocol Naloxone HCl (Naloxone 0.4 Mg/Ml Vial) 0.2 mg IV Q2MIN PRN PRN Reason: Opiate Reversal Ondansetron HCl (Ondansetron 4 Mg/2 Ml Inj) 4 mg IV Q8HR PRN PRN Reason: Nausea And Vomiting Pantoprazole Sodium (Pantoprazole 40 Mg Vial) 40 mg IV BID LIGIA Discontinued Medications Pantoprazole Sodium (Pantoprazole 40 Mg Vial) 80 mg IV NOW ONE Stop: 06/08/23 00:45 Last Admin: 06/08/23 00:47 Dose: 80 mg Documented By: AMALIA Consultations Consultation #1: Discussed with on-call General surgery, Dr. Brice, happy to play a role in consultation Consultation #2: Call to hospitalist Time: 02:24 Vital Signs Vital signs: Vital Signs - 8 hr 06/07/23 21:42 06/07/23 23:25 06/07/23 23:26 Temperature 97.7 F Pulse Rate 89 53 L Respiratory Rate 19 Blood Pressure 145/74 H 83/49 L Pulse Oximetry 99 96 Oxygen Delivery Method Room Air 06/07/23 23:26 06/07/23 23:30 06/07/23 23:30 Temperature Pulse Rate 59 L 62 Respiratory Rate 12 14 Blood Pressure 111/55 L Pulse Oximetry 97 95 Oxygen Delivery Method 06/08/23 00:00 06/08/23 00:00 06/08/23 00:30 Temperature Pulse Rate 76 79 Respiratory Rate 12 13 Blood Pressure 103/56 L Pulse Oximetry 94 94 Oxygen Delivery Method Room Air 06/08/23 00:31 06/08/23 00:31 06/08/23 01:06 Temperature Pulse Rate 81 83 Respiratory Rate 15 Blood Pressure 121/56 L Pulse Oximetry 95 Oxygen Delivery Method 06/08/23 01:16 06/08/23 01:16 06/08/23 01:19 Temperature Pulse Rate 87 Respiratory Rate 15 Blood Pressure 77/53 L 118/59 L Pulse Oximetry 96 Oxygen Delivery Method 06/08/23 01:19 06/08/23 01:30 06/08/23 01:30 Temperature Pulse Rate 85 84 Respiratory Rate 20 15 Blood Pressure 117/57 L Pulse Oximetry 96 96 Oxygen Delivery Method 06/08/23 02:00 06/08/23 02:00 06/08/23 02:30 Temperature Pulse Rate 74 78 Respiratory Rate 12 14 Blood Pressure 116/58 L Pulse Oximetry 96 95 Oxygen Delivery Method Room Air 06/08/23 02:31 06/08/23 02:31 06/08/23 03:00 Temperature Pulse Rate 76 Respiratory Rate 17 Blood Pressure 116/71 109/58 L Pulse Oximetry 95 Oxygen Delivery Method Room Air 06/08/23 03:00 Temperature Pulse Rate 66 Respiratory Rate 12 Blood Pressure Pulse Oximetry 94 Oxygen Delivery Method Room Air Medical Decision Making Lab Data 06/08/23 01:52 06/07/23 21:50 Labs: Lab Results 06/07/23 06/07/23 06/08/23 Range/Units 21:50 22:56 00:33 WBC 12.6 H (4.5-11.0) X10^3/uL RBC 4.22 L (4.5-5.9) X10^6/uL Hgb 13.3 L 11.1 L (13.5-17.5) g/dL Hct 40.5 L 33.5 L (41-53) % MCV 96.0 (80-100) fL MCH 31.5 (26-34) PG MCHC 32.8 (30-36) % RDW 13.4 (11.6-14.8) % Plt Count 242 (150-400) X10^3/uL Neut % (Auto) 60.0 (50-75) % Lymph % (Auto) 25.3 (25-40) % Knott % (Auto) 7.9 (3-14) % Eos % (Auto) 6.4 H (2-4) % Baso % (Auto) 0.4 (0-2) % Neut # (Auto) 7600 H (6488-8232) /uL Lymph # (Auto) 3200 (9930-7433) /uL Knott # (Auto) 1000 H (0-900) /uL Eos # (Auto) 800 H (0-450) /uL Baso # (Auto) 0 (0-100) /uL Sodium 138 (137-145) mmol/L Potassium 4.4 (3.4-5.1) mmol/L Chloride 99 (98-107) mmol/L Carbon Dioxide 30 (22-32) mmol/L BUN 23 H (9-20) mg/dL Creatinine 1.14 (0.66-1.25) mg/dL Estimated GFR > 60 (>60) mL/min BUN/Creatinine Ratio 20.2 (6-22) Glucose 241 H (80-110) mg/dL Calcium 9.6 (8.4-10.2) mg/dL Magnesium 1.9 (1.6-2.3) mg/dL Total Bilirubin 0.5 (0.2-1.3) mg/dL AST 18 (17-59) IU/L ALT 14 (<50) IU/L Alkaline Phosphatase 78 (38-126) U/L Total Protein 7.1 (6.3-8.2) g/dL Albumin 4.0 (3.5-5.0) g/dL Globulin 3.1 (1.7-4.1) g/dL Albumin/Globulin Ratio 1.3 (1.0-2.8) Stl C. cayetanensis PCR Not detected (Not Detect) Stool Rotavirus (PCR) Not detected (Not Detect) Stool Adenovirus (PCR) Not detected (Not Detect) Stool Astrovirus (PCR) Not detected (Not Detect) Stool Cryptosporidium PCR Not detected (Not Detect) Stl E.coli Shiga Tox PCR Not detected (Not Detect) St Sh/Enteroin Ecoli PCR Not detected (Not Detect) Stl Enterotoxigenic E PCR Not detected (Not Detect) Stool EPEC (PCR) Not detected (Not Detect) Stl E. histolytica PCR Not detected (Not Detect) Stool Giardia Lamblia PCR Not detected (Not Detect) Stool Sapovirus (PCR) Not detected (Not Detect) Stl P. shigelloides PCR Not detected (Not Detect) St Y.enterocolitica PCR Not detected (Not Detect) Stool Vibrio (PCR) Not detected (Not Detect) Stl Vibrio cholerae PCR Not detected (Not Detect) Stl Enteroaggr Ecoli PCR Not detected (Not Detect) Stl Norovirus GI/GII PCR Not detected (Not Detect) Campylobacter (PCR) Not detected (Not Detect) C. difficile Tox (PCR) Not detected (Not Detect) Salmonella (PCR) Not detected (Not Detect) Blood Type A Positive Antibody Screen Negative 06/08/23 Range/Units 01:52 WBC (4.5-11.0) X10^3/uL RBC (4.5-5.9) X10^6/uL Hgb 11.4 L (13.5-17.5) g/dL Hct 34.4 L (41-53) % MCV (80-100) fL MCH (26-34) PG MCHC (30-36) % RDW (11.6-14.8) % Plt Count (150-400) X10^3/uL Neut % (Auto) (50-75) % Lymph % (Auto) (25-40) % Knott % (Auto) (3-14) % Eos % (Auto) (2-4) % Baso % (Auto) (0-2) % Neut # (Auto) (6028-4370) /uL Lymph # (Auto) (5384-7972) /uL Knott # (Auto) (0-900) /uL Eos # (Auto) (0-450) /uL Baso # (Auto) (0-100) /uL Sodium (137-145) mmol/L Potassium (3.4-5.1) mmol/L Chloride (98-107) mmol/L Carbon Dioxide (22-32) mmol/L BUN (9-20) mg/dL Creatinine (0.66-1.25) mg/dL Estimated GFR (>60) mL/min BUN/Creatinine Ratio (6-22) Glucose (80-110) mg/dL Calcium (8.4-10.2) mg/dL Magnesium (1.6-2.3) mg/dL Total Bilirubin (0.2-1.3) mg/dL AST (17-59) IU/L ALT (<50) IU/L Alkaline Phosphatase (38-126) U/L Total Protein (6.3-8.2) g/dL Albumin (3.5-5.0) g/dL Globulin (1.7-4.1) g/dL Albumin/Globulin Ratio (1.0-2.8) Stl C. cayetanensis PCR (Not Detect) Stool Rotavirus (PCR) (Not Detect) Stool Adenovirus (PCR) (Not Detect) Stool Astrovirus (PCR) (Not Detect) Stool Cryptosporidium PCR (Not Detect) Stl E.coli Shiga Tox PCR (Not Detect) St Sh/Enteroin Ecoli PCR (Not Detect) Stl Enterotoxigenic E PCR (Not Detect) Stool EPEC (PCR) (Not Detect) Stl E. histolytica PCR (Not Detect) Stool Giardia Lamblia PCR (Not Detect) Stool Sapovirus (PCR) (Not Detect) Stl P. shigelloides PCR (Not Detect) St Y.enterocolitica PCR (Not Detect) Stool Vibrio (PCR) (Not Detect) Stl Vibrio cholerae PCR (Not Detect) Stl Enteroaggr Ecoli PCR (Not Detect) Stl Norovirus GI/GII PCR (Not Detect) Campylobacter (PCR) (Not Detect) C. difficile Tox (PCR) (Not Detect) Salmonella (PCR) (Not Detect) Blood Type Antibody Screen Point of Care Testing Stool Occult Blood Positive Point of care testing: Point of Care Testing Stool Occult Blood Positive MDM Narrative Medical decision making narrative: [83] year old patient presents with gastrointestinal bleed Multiple etiologies for patient's symptoms considered including, but not limited to: [Upper GI bleed versus lower GI bleed from diverticulitis versus diverticulosis versus ischemic colitis versus other] Prior Charts reviewed in our EMR Primary Historian: patient Labs reviewed and interpreted by myself: Subtle elevation white blood cells 12.6. Initial hemoglobin 13.3 which drops to 11.1 after a few hours, repeat demonstrates 11.4. Imaging reviewed: CT of the abdomen pelvis with IV contrast demonstrates diverticulosis without acute diverticulitis, cystic mass in the tail of the pancreas, small hiatal hernia Consultations: Discussed with Dr. Khoury, she is happy to accept patient on her service. Discussed with Dr. Brice, happy to provide consultation and likely endoscopy Patient's symptoms improved over duration of stay with above-stated therapies. Patient requires hospitalization due to ongoing bleeding for stabilization and further characterization of his diagnosis Discharge Plan Departure Patient Disposition: Admitted As Inpatient Clinical Impression: Acute GI bleeding Admit Date/Time: 06/08/23 03:20 Admit Provider: Lorenza Khoury
[2023-06-07 21:42] VITALS: BP 145/74; PULSE 89; RESP 19; TEMP 36.5; O2SAT 99; BMI 27.7
[2023-06-07 22:09] LABS: Add Manual Diff / Slide Review NO; Basophils Absolute Auto 0 /uL (0-100); Basophils Percent Auto 0.4 % (0-2); Eosinophils Absolute Auto 800 /uL (0-450); Eosinophils Percent Auto 6.4 % (2-4); Hematocrit 40.5 % (41-53); Hemoglobin 13.3 g/dL (13.5-17.5); Lymphocytes Absolute Auto 3200 /uL (1100-4500); Lymphocytes Percent Auto 25.3 % (25-40); Mean Corpuscular HGB Conc 32.8 % (30-36); Mean Corpuscular Hemoglobin 31.5 PG (26-34); Monocytes Absolute Auto 1000 /uL (0-900); Monocytes Percent Auto 7.9 % (3-14); Neutrophils Absolute Auto 7600 /uL (1500-7000); Platelet Count 242 X10^3/uL (150-400); Red Blood Cell Count 4.22 X10^6/uL (4.5-5.9); Red Cell Distribution Width 13.4 % (11.6-14.8); White Blood Cell Count 12.6 X10^3/uL (4.5-11.0)
[2023-06-07 22:22] LABS: Alanine Aminotransferase 14 IU/L (<50); Albumin Globulin Ratio 1.3 (1.0-2.8); Alkaline Phosphatase 78 U/L (38-126); Aspartate Aminotransferase 18 IU/L (17-59); BUN Creatinine Ratio 20.2 (6-22); Bilirubin Total 0.5 mg/dL (0.2-1.3); Blood Urea Nitrogen 23 mg/dL (9-20); Calcium 9.6 mg/dL (8.4-10.2); Carbon Dioxide 30 mmol/L (22-32); Chloride 99 mmol/L (98-107); Estimated Glomerular Filt Rate > 60 mL/min (>60); Globulin 3.1 g/dL (1.7-4.1); Glucose 241 mg/dL (80-110); HEMOLYSIS < 15 (0-50); Magnesium 1.9 mg/dL (1.6-2.3); Potassium 4.4 mmol/L (3.4-5.1); Sodium 138 mmol/L (137-145); Total Protein 7.1 g/dL (6.3-8.2)
[2023-06-07 23:25] VITALS: PULSE 53; O2SAT 96
[2023-06-07 23:26] VITALS: BP 83/49; PULSE 59; RESP 12; O2SAT 97
[2023-06-07 23:30] VITALS: BP 111/55; PULSE 62; RESP 14; O2SAT 95
[2023-06-08] VITALS (16 sets, daily range): BP systolic 77–136; BP diastolic 53–81; PULSE 66–87; RESP 12–20; TEMP 36.3–36.4; O2SAT 94–99; BMI 24.9
[2023-06-08 00:38] LABS: Hematocrit 33.5 % (41-53); Hemoglobin 11.1 g/dL (13.5-17.5)
--- NOTE | 2023-06-08 00:43 | DI.CT.S_ITS ---
PROCEDURE: CT ABDOMEN PELVIS W CON INDICATIONS: abdominal pain, diarrhea, bleeding TECHNIQUE: After the administration of intravenous contrast, axial sections acquired from the lung bases to the pubic symphysis. Coronal and sagittal reformats were performed. For radiation dose reduction, the following was used: automated exposure control, adjustment of mA and/or kV according to patient size. COMPARISON: [facility], CT, ABDOMEN/PELVIS WITH CONTRAST, 04/12/2017, 17:26. FINDINGS: Image quality: Diagnostic. Lower Chest: Bibasilar subpleural scars and atelectasis. Small hiatal hernia. Fluid within the distal esophagus is compatible with gastroesophageal reflux. ABDOMEN: Liver: No solid mass. Gallbladder: No radiopaque gallstones or wall thickening. Biliary ducts: No biliary dilation. Pancreas: There is a 0.8 x 1.5 x 0.9 cm cystic mass in the tail of the pancreas. Spleen: Size is within normal limits. Adrenal Glands: No adrenal nodules. Kidneys and Ureters: No hydronephrosis. No solid mass. Bilateral simple appearing renal cysts. No complex renal cystic lesion which requires follow up. Stomach and Bowel: Stomach is distended with air-fluid levels. Normal bowel caliber, without significant wall thickening. Diverticulosis without acute diverticulitis. Liquified stool in distal colon and rectum. Normal appendix. Peritoneum: Mild mesenteric stranding. No abnormal intraperitoneal fluid. No free air. Ventral Wall: No hernia. Abdominal Nodes: No retroperitoneal or mesenteric adenopathy by size criteria. Vessels: Aorta and inferior vena cava are normal in size. Moderate atherosclerotic calcifications. PELVIS: Pelvic Organs: Prostate is enlarged. Bladder: Unremarkable. Pelvic Nodes: No enlarged lymph nodes. Miscellaneous: No inguinal hernias are seen. Bones: No aggressive osseous abnormality. IMPRESSION: 1. Liquefied stool in distal colon, suggesting gastroenterocolitis. 2. Diverticulosis without acute diverticulitis. 3. A 0.8 x 1.5 x 0.9 cm cystic mass in the tail of the pancreas. This could be simple cysts or IPMN. Consider non urgent pancreatic protocol CT or MRI for follow-up evaluation. 4. Small hiatal hernia. Fluid density in the distal esophagus is likely secondary to gastroesophageal reflux. Dictated by: Gregory Mauro M.D. on 06/08/2023 at 1:32 Approved by: Gregory Mauro M.D. on 06/08/2023 at 1:40
[2023-06-08] MEDS: PANTOPRAZOLE 40 MG VIAL 80 MG IV (00:47)
[2023-06-08 01:59] LABS: Adenovirus F 40/41 Not Detected (Not Detect); Astrovirus Not Detected (Not Detect); Campylobacter Not Detected (Not Detect); Clostridium difficile toxin AB Not Detected (Not Detect); Cryptosporidium Not Detected (Not Detect); Cyclospora cayetanensis Not Detected (Not Detect); Entamoeba histolytica Not Detected (Not Detect); Enteroaggregative E.coli Not Detected (Not Detect); Enteropathogenic E.coli Not Detected (Not Detect); Enterotoxigenic E.coli It/st Not Detected (Not Detect); Giardia lamblia Not Detected (Not Detect); Norovirus GI/GII Not Detected (Not Detect); Plesiomonsa shigelloides Not Detected (Not Detect); Rotavirus A Not Detected (Not Detect); Salmonella Not Detected (Not Detect); Sapovirus Not Detected (Not Detect); Shiga-like toxin-prod E.coli Not Detected (Not Detect); Shigella/Enteroinvasive E.coli Not Detected (Not Detect); Vibrio Not Detected (Not Detect); Vibrio cholerae Not Detected (Not Detect); Yersinia enterocolitica Not Detected (Not Detect)
[2023-06-08 02:13] LABS: Hematocrit 34.4 % (41-53); Hemoglobin 11.4 g/dL (13.5-17.5)
[2023-06-08] MEDS: SODIUM CHLORIDE 0.45% 1,000 ML 100 ML IV ×3 (04:00→23:52)
[2023-06-08 06:22] LABS: Blood Urea Nitrogen 25 mg/dL (9-20); Calcium 8.6 mg/dL (8.4-10.2); Carbon Dioxide 28 mmol/L (22-32); Chloride 104 mmol/L (98-107); Estimated Glomerular Filt Rate > 60 mL/min (>60); Glucose 235 mg/dL (80-110); HEMOLYSIS < 15 (0-50); Sodium 135 mmol/L (137-145)
[2023-06-08 06:25] LABS: Add Manual Diff / Slide Review NO; Basophils Absolute Auto 0 /uL (0-100); Basophils Percent Auto 0.3 % (0-2); Eosinophils Absolute Auto 200 /uL (0-450); Eosinophils Percent Auto 2.2 % (2-4); Hematocrit 30.6 % (41-53); Hemoglobin 10.2 g/dL (13.5-17.5); Lymphocytes Absolute Auto 1300 /uL (1100-4500); Lymphocytes Percent Auto 13.7 % (25-40); Mean Corpuscular HGB Conc 33.4 % (30-36); Mean Corpuscular Hemoglobin 31.8 PG (26-34); Monocytes Absolute Auto 600 /uL (0-900); Monocytes Percent Auto 6.3 % (3-14); Neutrophils Absolute Auto 7400 /uL (1500-7000); Neutrophils Percent Auto 77.5 % (50-75); Platelet Count 185 X10^3/uL (150-400); Red Blood Cell Count 3.22 X10^6/uL (4.5-5.9); Red Cell Distribution Width 13.4 % (11.6-14.8); White Blood Cell Count 9.5 X10^3/uL (4.5-11.0)
--- NOTE | 2023-06-08 06:58 | PM.HP.1 ---
History of Present Illness History of Present Illness Date Patient Seen: 06/08/23 Time Patient Seen: 06:59 Chief complaint: Blood in toilet Narrative: 83-year-old male, well known to me, presented to the hospital emergency department after 2 maroon colored watery type stools occurring prior to presentation Patient denies any other associated symptoms. Not lightheaded not dizzy not having abdominal pain. He has on no blood thinners other than an aspirin a day because of his known coronary disease Patient also denies any nausea vomiting or upper GI symptoms. No cold or flu symptoms. No recent colonoscopies of course due to his age. Does have known diverticular disease based on prior colonoscopy, from 2010. ER evaluation was remarkable for lower than usual for patient hemoglobin and hematocrit although they did not dramatically change during his ER evaluation. No stool output was noted (although since admission has had small volume maroonish colored stool). Chemistries essentially unremarkable. CT scan of the abdomen demonstrated some changes in the colon consistent with probable colitis including some liquid stool being retained. No evidence of mass effect. Cystic mass in the pancreas felt to be most likely benign although not while characterize Patient's history otherwise includes the known coronary disease as well as aortic valve stenosis, s/p AVR with bioprosthetic valve, follwed by [facility], Dr. Sims. Also has DM, very adequately controlled on minimal oral meds and diet alone [facility] Medical History (Updated 06/08/23 @ 08:37 by Demetri Ca MD) Diverticular disease of colon History of small bowel obstruction (02/05/15) COVID-19 Mixed hyperlipidemia Hx of small bowel obstruction (01/2015) History of GI bleed (08/2011) Aortic valve stenosis Diabetes Coronary artery disease Surgical History (Updated 06/08/23 @ 08:37 by Demetri Ca MD) Status post colonoscopy (~07/2010) History of aortic valve replacement with bioprosthetic valve (~11/2010) Hx of hernia repair (Unknown) 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) Social History household members: spouse, family and children Smoking Status: Former smoker alcohol intake: current Meds Home Medications and Allergies Home Medications Medication Instructions Recorded Confirmed Type aspirin 81 mg tablet,delayed 81 mg PO BID ##0 10/12/16 06/08/23 History release blood-glucose meter #1 ea 04/29/22 06/08/23 Rx metformin 500 mg tablet 500 mg PO BIDCC #180 tabs 08/02/22 06/08/23 Rx simvastatin 20 mg tablet 20 mg PO HS #90 tabs 08/02/22 06/08/23 Rx blood sugar diagnostic (Accu-Chek #100 ea 02/01/23 06/08/23 Rx Guide test strips) tamsulosin 0.4 mg capsule (Flomax) 0.4 mg PO BID #180 caps 02/06/23 06/08/23 Rx lancets (Accu-Chek Softclix #100 ea 02/08/23 06/08/23 Rx Lancets) diphenhydramine HCl 25 mg capsule See Rx Instructions PO DAILY 02/14/23 06/08/23 History (Benadryl) Allergies Allergy/AdvReac Type Severity Reaction Status Date / Time No Known Drug Allergies Allergy Verified 06/04/23 16:34 Review of Systems Review of Systems ROS: Yes All systems reviewed with the patient and are negative except as otherwise documented Exam Vital Signs (past 8 hours): - 06/07/23 23:25 06/07/23 23:26 06/07/23 23:26 Temperature Pulse Rate 53 L 59 L Respiratory Rate 12 Blood Pressure 83/49 L Pulse Oximetry 96 97 Oxygen Delivery Method Oxygen Flow Rate 06/07/23 23:30 06/07/23 23:30 06/08/23 00:00 Temperature Pulse Rate 62 Respiratory Rate 14 Blood Pressure 111/55 L 103/56 L Pulse Oximetry 95 Oxygen Delivery Method Oxygen Flow Rate 06/08/23 00:00 06/08/23 00:30 06/08/23 00:31 Temperature Pulse Rate 76 79 81 Respiratory Rate 12 13 15 Blood Pressure Pulse Oximetry 94 94 95 Oxygen Delivery Method Room Air Oxygen Flow Rate 06/08/23 00:31 06/08/23 01:06 06/08/23 01:16 Temperature Pulse Rate 83 87 Respiratory Rate 15 Blood Pressure 121/56 L Pulse Oximetry 96 Oxygen Delivery Method Oxygen Flow Rate 06/08/23 01:16 06/08/23 01:19 06/08/23 01:19 Temperature Pulse Rate 85 Respiratory Rate 20 Blood Pressure 77/53 L 118/59 L Pulse Oximetry 96 Oxygen Delivery Method Oxygen Flow Rate 06/08/23 01:30 06/08/23 01:30 06/08/23 02:00 Temperature Pulse Rate 84 Respiratory Rate 15 Blood Pressure 117/57 L 116/58 L Pulse Oximetry 96 Oxygen Delivery Method Oxygen Flow Rate 06/08/23 02:00 06/08/23 02:30 06/08/23 02:31 Temperature Pulse Rate 74 78 76 Respiratory Rate 12 14 17 Blood Pressure Pulse Oximetry 96 95 95 Oxygen Delivery Method Room Air Room Air Oxygen Flow Rate 06/08/23 02:31 06/08/23 03:00 06/08/23 03:00 Temperature Pulse Rate 66 Respiratory Rate 12 Blood Pressure 116/71 109/58 L Pulse Oximetry 94 Oxygen Delivery Method Room Air Oxygen Flow Rate 06/08/23 03:45 Temperature 97.6 F Pulse Rate 66 Respiratory Rate 18 Blood Pressure 113/81 Pulse Oximetry 99 Oxygen Delivery Method Oxygen Flow Rate 0 Oxygen Delivery Method Room Air Oxygen Flow Rate 0 Narrative Exam Narrative: Elderly male in no obvious distress lying in his hospital bed HEENT-normocephalic atraumatic PERRLA EOMs intact Neck-no bruits Lungs-clear with good breath sounds Heart-regular rate and rhythm systolic murmur the general precordium Abdomen-positive to somewhat hyperactive bowel tones. Maybe minimal distention. No rebound or guarding or tenderness noted Extremities-no cyanosis clubbing or edema Skin-open abscess/cyst type cavity posterior left shoulder come without evidence of significant drainage or inflammation Objective Labs 06/08/23 05:50 06/08/23 05:50 Labs: Laboratory Results - last 24 hr 06/07/23 06/07/23 06/08/23 21:50 22:56 00:33 WBC 12.6 H RBC 4.22 L Hgb 13.3 L 11.1 L Hct 40.5 L 33.5 L MCV 96.0 MCH 31.5 MCHC 32.8 RDW 13.4 Plt Count 242 Neut % (Auto) 60.0 Lymph % (Auto) 25.3 [place] % (Auto) 7.9 Eos % (Auto) 6.4 H Baso % (Auto) 0.4 Neut # (Auto) 7600 H Lymph # (Auto) 3200 [place] # (Auto) 1000 H Eos # (Auto) 800 H Baso # (Auto) 0 Sodium 138 Potassium 4.4 Chloride 99 Carbon Dioxide 30 BUN 23 H Creatinine 1.14 Estimated GFR > 60 BUN/Creatinine Ratio 20.2 Glucose 241 H Calcium 9.6 Magnesium 1.9 Total Bilirubin 0.5 AST 18 ALT 14 Alkaline Phosphatase 78 Total Protein 7.1 Albumin 4.0 Globulin 3.1 Albumin/Globulin Ratio 1.3 Stl C. cayetanensis PCR Not detected Stool Rotavirus (PCR) Not detected Stool Adenovirus (PCR) Not detected Stool Astrovirus (PCR) Not detected Stool Cryptosporidium PCR Not detected Stl E.coli Shiga Tox PCR Not detected St Sh/Enteroin Ecoli PCR Not detected Stl Enterotoxigenic E PCR Not detected Stool EPEC (PCR) Not detected Stl E. histolytica PCR Not detected Stool Giardia Lamblia PCR Not detected Stool Sapovirus (PCR) Not detected Stl P. shigelloides PCR Not detected St Y.enterocolitica PCR Not detected Stool Vibrio (PCR) Not detected Stl Vibrio cholerae PCR Not detected Stl Enteroaggr Ecoli PCR Not detected Stl Norovirus GI/GII PCR Not detected Campylobacter (PCR) Not detected C. difficile Tox (PCR) Not detected Salmonella (PCR) Not detected Blood Type A Positive Antibody Screen Negative 06/08/23 06/08/23 01:52 05:50 WBC 9.5 RBC 3.22 L Hgb 11.4 L 10.2 L Hct 34.4 L 30.6 L MCV 95.0 MCH 31.8 MCHC 33.4 RDW 13.4 Plt Count 185 Neut % (Auto) 77.5 H Lymph % (Auto) 13.7 L [place] % (Auto) 6.3 Eos % (Auto) 2.2 Baso % (Auto) 0.3 Neut # (Auto) 7400 H Lymph # (Auto) 1300 [place] # (Auto) 600 Eos # (Auto) 200 Baso # (Auto) 0 Sodium 135 L Potassium 5.0 Chloride 104 Carbon Dioxide 28 BUN 25 H Creatinine 1.00 Estimated GFR > 60 BUN/Creatinine Ratio 25.0 H Glucose 235 H Calcium 8.6 Magnesium Total Bilirubin AST ALT Alkaline Phosphatase Total Protein Albumin Globulin Albumin/Globulin Ratio Stl C. cayetanensis PCR Stool Rotavirus (PCR) Stool Adenovirus (PCR) Stool Astrovirus (PCR) Stool Cryptosporidium PCR Stl E.coli Shiga Tox PCR St Sh/Enteroin Ecoli PCR Stl Enterotoxigenic E PCR Stool EPEC (PCR) Stl E. histolytica PCR Stool Giardia Lamblia PCR Stool Sapovirus (PCR) Stl P. shigelloides PCR St Y.enterocolitica PCR Stool Vibrio (PCR) Stl Vibrio cholerae PCR Stl Enteroaggr Ecoli PCR Stl Norovirus GI/GII PCR Campylobacter (PCR) C. difficile Tox (PCR) Salmonella (PCR) Blood Type Antibody Screen Assessment & Plan Assessment & Plan narrative: 1. GI Bleed- Possibly/probably colonic source, possibly infectious vs maybe ischemic (risk due to known vascular disease/DM), verses AVM connected to his known aortic valve disease. However paucity of symptoms up until presentation with maroon stools. Hemodynamically stable. Would benefit from colonoscopy, and if no findings, consider EGD. Patient continues on proton pump inhibitor parenterally in case of upper GI source. Monitor numbers for now with H/H checks, transfuse for Hct < 25% or so. 2. DM - DM diet when not NPO, hold oral meds, coverage insulin 3. Pancreatic cyst - anticipate outpatient eval with MRI vs. CT pancreatic protocol. Even if neoplastic, patient unlikely to pursue aggressive treatment. 4. Cardiac - minimal meds as per patient preference. Continue off aspirin until source of potential bleeding better identified. Resume when safe from GI bleed standpoint. 5. VTE prophylaxis - SCDs, lovenox contraindicated due to bleeding 6. Code Status - No code per many previous and current discussion(s). Appropriate. 7. Sebaceous cyst left posterior shoulder-appears to be healing in nicely. No evidence of active infection at this time.
[2023-06-08] MEDS: INSULIN LISPRO 100 UNIT/ML 3ML VIAL SUBCUT ×3 (07:54→20:41)
[2023-06-08] MEDS: PANTOPRAZOLE 40 MG VIAL IV ×2 (08:48→20:41)
[2023-06-08] MEDS: TAMSULOSIN 0.4 MG CAPSULE PO ×2 (08:48→20:41)
--- NOTE | 2023-06-08 11:22 | CM.DANOTE ---
Initial DCP Assessment Note Pt is an 83 yo male, resident of [place], arrives with complaint of seeing maroon colored watery stools. Patient being seen by Dr Ca today, surgery consulted for colonoscopy and EGD which have been scheduled tomorrow w/ Dr Nicole. PCP: Demetri Ca Payer: Carol MATA Reviewed chart, met w/patient to introduce self and role. Patient lives with his son, daughter/Son-in-law and three grand kids. Patient reports being indp in all aspects, no use of AD, drives. Patient denies hx of HH and SNF. Patient denies needs from this CM team currently, states appreciation for the visit. No barriers identified at this time to patient's safe discharge home w/family to assist; close outpatient f/u recommended. CM team will plan to follow closely in case any DC needs or concerns arise. JASMYN Rojas Discharge Planning/Care Management CM Discharge Assessment Start: 06/08/23 11:20 Freq: Status: Active Protocol: Document 06/08/23 11:21 MANNY (Rec: 06/08/23 11:22 [id number]) Discharge Planning Assessment Assigned Silhouette Artist JASMYN Casillas DPOA/Assigned Designee Name antonietta Alcazar Contact Information [phone] Advance Directives? Yes Advance Directives on File No History Provided By Patient,Medical Record Prior Living Arrangements House Household Members family,children Type of transporation used prior to Drives own vehicle admit Independent with ADL's Yes Is patient alert and oriented? Yes Patient/Family Preference OP PT Therapy Barriers to Discharge No Discharge Plan Home Transportation Arrangement Family to provide transportation. Referrals Initiated None needed
[2023-06-08 16:12] LABS: Hematocrit 30.4 % (41-53); Hemoglobin 10.1 g/dL (13.5-17.5)
[2023-06-08] MEDS: PEG3350/SOD SULF,BICARB,CL/KCL 4,000 ML SOLUTION 4000 ML PO (17:46)
[2023-06-09] VITALS (11 sets, daily range): BP systolic 114–161; BP diastolic 44–72; PULSE 61–87; RESP 12–20; TEMP 36.2–36.8; O2SAT 94–98
--- NOTE | 2023-06-09 | PATH_ITS ---
[facility] Accession Number: [id number] No. of containers..01 Tissue . 01 Material submitted: . duodenum - DUODENAL BIOPSY . 01 Diagnosis: Duodenum, Biopsy: Duodenal mucosa with no diagnostic abnormality. Negative for active inflammation, features of sprue, dysplasia, or malignancy. [facility] 06/13/2023 1130 Local . 01 Electronically signed: . Cyn Arroyo MD, Pathologist NPI- [id number] . 01 Gross description: . The specimen is received in formalin labeled with the patient's name, , and duodenum, and consists of a single fragment of white-augustine soft tissue measuring 0.4 cm in greatest dimension. The tissue is entirely submitted in cassette A1. ([id number]) /LIV 06/12/2023 1133 Local . 01 Pathologist provided ICD-10: K92.2 . 01 CPT . 533814 Specimen Comment: A courtesy copy of this report has been sent to [phone] Performed at: 01 [facility] [address] [place] [address], [place], [place] [id number] MD Gabriel Ponce MD Phone: [phone]
[2023-06-09 04:49] LABS: Add Manual Diff / Slide Review NO; Basophils Absolute Auto 0 /uL (0-100); Basophils Percent Auto 0.4 % (0-2); Eosinophils Absolute Auto 600 /uL (0-450); Eosinophils Percent Auto 6.6 % (2-4); Hematocrit 27.2 % (41-53); Hemoglobin 9.2 g/dL (13.5-17.5); Lymphocytes Absolute Auto 1400 /uL (1100-4500); Lymphocytes Percent Auto 16.1 % (25-40); Mean Corpuscular HGB Conc 33.6 % (30-36); Mean Corpuscular Hemoglobin 31.8 PG (26-34); Mean Corpuscular Volume 94.6 fL (80-100); Monocytes Absolute Auto 700 /uL (0-900); Monocytes Percent Auto 7.3 % (3-14); Neutrophils Absolute Auto 6300 /uL (1500-7000); Neutrophils Percent Auto 69.6 % (50-75); Platelet Count 172 X10^3/uL (150-400); Red Blood Cell Count 2.88 X10^6/uL (4.5-5.9); Red Cell Distribution Width 13.3 % (11.6-14.8)
[2023-06-09 05:02] LABS: BUN Creatinine Ratio 21.7 (6-22); Blood Urea Nitrogen 18 mg/dL (9-20); Carbon Dioxide 29 mmol/L (22-32); Chloride 103 mmol/L (98-107); Estimated Glomerular Filt Rate > 60 mL/min (>60); Glucose 145 mg/dL (80-110); HEMOLYSIS < 15 (0-50); Sodium 135 mmol/L (137-145)
--- NOTE | 2023-06-09 07:51 | P.PN_ITS ---
Subjective Subjective Date Patient Seen: 06/09/23 Time Patient Seen: 07:51 Interval history: Patient's hemoglobin hematocrit very slowly drifting down. Probably least part of it is due to dilution from the IV fluids Scheduled for colonoscopy and potential upper endoscopy today Still having stool output mostly a liquid with some formed stool (before the bowel prep started). Still passing reddish material even at the end of his bowel prep per patient. Exam Vital Signs (past 8 hours): - 06/09/23 00:00 06/09/23 04:00 Temperature 98.2 F 97.7 F Pulse Rate 87 79 Respiratory Rate 18 17 Blood Pressure 138/72 120/52 L Pulse Oximetry 98 94 Oxygen Flow Rate 0 0 Oxygen Delivery Method Room Air Oxygen Flow Rate 0 Objective Labs 06/09/23 04:34 06/09/23 04:34 Labs: Laboratory Results - last 24 hr 06/08/23 06/09/23 16:06 04:34 WBC 9.0 RBC 2.88 L Hgb 10.1 L 9.2 L Hct 30.4 L 27.2 L MCV 94.6 MCH 31.8 MCHC 33.6 RDW 13.3 Plt Count 172 Neut % (Auto) 69.6 Lymph % (Auto) 16.1 L [place] % (Auto) 7.3 Eos % (Auto) 6.6 H Baso % (Auto) 0.4 Neut # (Auto) 6300 Lymph # (Auto) 1400 [place] # (Auto) 700 Eos # (Auto) 600 H Baso # (Auto) 0 Sodium 135 L Potassium 4.0 Chloride 103 Carbon Dioxide 29 BUN 18 Creatinine 0.83 Estimated GFR > 60 BUN/Creatinine Ratio 21.7 Glucose 145 H Calcium 8.0 L [facility] Medical History (Updated 06/08/23 @ 08:37 by Demetri Ca MD) Diverticular disease of colon History of small bowel obstruction (02/05/15) COVID-19 Mixed hyperlipidemia Hx of small bowel obstruction (01/2015) History of GI bleed (08/2011) Aortic valve stenosis Diabetes Coronary artery disease Surgical History (Updated 06/08/23 @ 08:37 by Demetri Ca MD) Status post colonoscopy (~07/2010) History of aortic valve replacement with bioprosthetic valve (~11/2010) Hx of hernia repair (Unknown) 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) Social History household members: family and children Smoking Status: Former smoker alcohol intake: current Assessment & Plan Assessment & Plan narrative: 1. GI bleed-for endoscopy today. No evidence of large volume active bleeding at this time. Hemoglobin hematocrit relatively stable. No indication for transfusion. Given the persistence of red blood even with a bowel prep and yet no significant decline in his hemoglobin hematocrit I doubt this is an upper GI bleed most likely colonic source maybe AVM verses diverticular. 2. Diabetes-as expected not a big concern. Patient was super well controlled diabetes as an outpatient. Continue monitor numbers 3. Pancreatic cyst-plan outpatient evaluation 4. Cardiac-stable no active issues.
[2023-06-09] MEDS: PANTOPRAZOLE 40 MG VIAL IV (08:16)
[2023-06-09] MEDS: TAMSULOSIN 0.4 MG CAPSULE PO (08:16)
[2023-06-09] MEDS: SODIUM CHLORIDE 0.45% 1,000 ML 100 ML IV (09:51)
[2023-06-09] MEDS: LACTATED RINGERS 1,000 ML 42 ML IV (15:02)
--- NOTE | 2023-06-09 15:12 | PM.CN ---
History of Present Illness Consult details Date Patient Seen: 06/09/23 Time Patient Seen: 15:12 Chief complaint: Blood in toilet Narrative: 83-year-old man on aspirin admitted with a GI bleed. Hemodynamically stable. Current hematocrit 27 has not required blood transfusion. No hematemesis. Continues to have black tarry stool despite bowel prep. No history of peptic ulcer disease. Meds Home Medications and Allergies Home Medications Medication Instructions Recorded Confirmed Type aspirin 81 mg tablet,delayed 81 mg PO BID ##0 10/12/16 06/08/23 History release blood-glucose meter #1 ea 04/29/22 06/08/23 Rx metformin 500 mg tablet 500 mg PO BIDCC #180 tabs 08/02/22 06/08/23 Rx simvastatin 20 mg tablet 20 mg PO HS #90 tabs 08/02/22 06/08/23 Rx blood sugar diagnostic (Accu-Chek #100 ea 02/01/23 06/08/23 Rx Guide test strips) tamsulosin 0.4 mg capsule (Flomax) 0.4 mg PO BID #180 caps 02/06/23 06/08/23 Rx lancets (Accu-Chek Softclix #100 ea 02/08/23 06/08/23 Rx Lancets) diphenhydramine HCl 25 mg capsule See Rx Instructions PO DAILY 02/14/23 06/08/23 History (Benadryl) Allergies Allergy/AdvReac Type Severity Reaction Status Date / Time No Known Drug Allergies Allergy Verified 06/04/23 16:34 Exam Vital Signs (past 8 hours): - 06/09/23 08:00 06/09/23 08:30 06/09/23 12:00 Temperature 97.1 F L 97.1 F L 98.2 F Pulse Rate 69 69 64 Respiratory Rate 19 20 20 Blood Pressure 114/52 L 114/52 L 133/56 L Pulse Oximetry 94 94 97 Oxygen Delivery Method Oxygen Flow Rate 0 0 0 06/09/23 15:00 Temperature 98.2 F Pulse Rate 79 Respiratory Rate 18 Blood Pressure 161/63 H Pulse Oximetry 95 Oxygen Delivery Method Room Air Oxygen Flow Rate Oxygen Delivery Method Room Air Oxygen Flow Rate 0 Narrative Exam Narrative: General elderly man alert oriented no acute distress Abdomen soft nontender nondistended Objective Labs 06/09/23 04:34 06/09/23 04:34 Labs: Laboratory Results - last 24 hr 06/08/23 06/09/23 16:06 04:34 WBC 9.0 RBC 2.88 L Hgb 10.1 L 9.2 L Hct 30.4 L 27.2 L MCV 94.6 MCH 31.8 MCHC 33.6 RDW 13.3 Plt Count 172 Neut % (Auto) 69.6 Lymph % (Auto) 16.1 L [place] % (Auto) 7.3 Eos % (Auto) 6.6 H Baso % (Auto) 0.4 Neut # (Auto) 6300 Lymph # (Auto) 1400 [place] # (Auto) 700 Eos # (Auto) 600 H Baso # (Auto) 0 Sodium 135 L Potassium 4.0 Chloride 103 Carbon Dioxide 29 BUN 18 Creatinine 0.83 Estimated GFR > 60 BUN/Creatinine Ratio 21.7 Glucose 145 H Calcium 8.0 L PFSH Medical History Diverticular disease of colon History of small bowel obstruction (02/05/15) COVID-19 Mixed hyperlipidemia Hx of small bowel obstruction (01/2015) History of GI bleed (08/2011) Aortic valve stenosis Diabetes Coronary artery disease Surgical History Status post colonoscopy (~07/2010) History of aortic valve replacement with bioprosthetic valve (~11/2010) Hx of hernia repair (Unknown) 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) Social History household members: family and children Tobacco & Substance Use Smoking Status: Former smoker alcohol intake: current Assessment & Plan Assessment and plan (1) Acute GI bleeding: Status: Acute Assessment & Plan narrative: 83-year-old man on aspirin with a hemodynamically stable upper GI bleed. Plan is for diagnostic esophagoduodenoscopy and colonoscopy. Overview of the procedures discussed. Procedural risks including hemorrhage, missed diagnosis, intestinal injury discussed. Doubtful colonoscopy will be of much utility today given his continued dark tarry stool may need to be repeated later this weekend.
--- NOTE | 2023-06-09 15:22 | PC.NURSE ---
Patient transported off the unit to PREOP area with PREOP RN via w/ch at approximately 1500.
--- NOTE | 2023-06-09 15:37 | PM.OP.EGD ---
Operative Date/Time/Diagnoses Date of procedure: 06/09/23 Time of procedure: 15:37 Pre-op diagnosis: GI bleed Post-op diagnosis: other (Duodenitis) Procedure & Clinicians Study performed: Esophagoduodenoscopy Same procedure as scheduled: Yes Indications: 83-year-old man on aspirin with a hemodynamically stable GI bleed likely upper in source Surgeon: Rafita Nicole Procedure Notes Procedure in detail: The history and physical was performed/updated and the patient is ASA class is 3. The procedure was discussed in detail with the patient. Potential risks complications including infection, bleeding, missed diagnosis, perforation, need for surgery, and were explained. Their questions were answered and informed consent was obtained. Patient was placed supine on the bed.. Time out was performed. Procedural sedation was administered by Anesthesia. A bite block was placed. the scope was inserted into the mouth and advanced through the esophagus and into the stomach. The pylorus was intubated and the duodenum was examined to the 2nd portion. The scope was then withdrawn into the stomach and was retroflexed. The stomach was decompressed and scope was withdrawn slowly through the esophagus. FINDINGS -duodenitis of the 1st portion of the duodenum. No active hemorrhage. Biopsy of the duodenal was performed with forceps. -hiatal hernia moderate-sized -no gastric ulcer The patient tolerated the procedure well. We proceeded to prepare him for the colonoscopy procedure and he had a large volume of black stool and colonoscopy was aborted. Specimen(s): other (Duodenum) Complications: none Impression: Duodenitis no active hemorrhage Post-procedure Plan for aftercare: Continue omeprazole Follow up biopsy result for rule out H pylori Discharge home Disposition: Acute Care
--- NOTE | 2023-06-09 16:46 | PM.DS.1 ---
History of Present Illness History of Present Illness Date Patient Seen: 06/09/23 Time Patient Seen: 16:47 Chief complaint: Blood in toilet Narrative: 83-year-old male, well known to me, presented to the hospital emergency department after 2 maroon colored watery type stools occurring prior to presentation Patient denies any other associated symptoms. Not lightheaded not dizzy not having abdominal pain. He has on no blood thinners other than an aspirin a day because of his known coronary disease Patient also denies any nausea vomiting or upper GI symptoms. No cold or flu symptoms. No recent colonoscopies of course due to his age. Does have known diverticular disease based on prior colonoscopy, from 2010. ER evaluation was remarkable for lower than usual for patient hemoglobin and hematocrit although they did not dramatically change during his ER evaluation. No stool output was noted (although since admission has had small volume maroonish colored stool). Chemistries essentially unremarkable. CT scan of the abdomen demonstrated some changes in the colon consistent with probable colitis including some liquid stool being retained. No evidence of mass effect. Cystic mass in the pancreas felt to be most likely benign although not while characterize Patient's history otherwise includes the known coronary disease as well as aortic valve stenosis, s/p AVR with bioprosthetic valve, follwed by [facility], Dr. Sims. Also has DM, very adequately controlled on minimal oral meds and diet alone Discharge Providers Provider Date of admission: 06/08/23 03:20 Discharge Date: 06/09/23 Primary care physician: Demetri Ca MD Discharge provider: Demetri Ca MD Summary Hospital Course Discharge Diagnosis: 1. Acute GI bleed 2. Duodenitis causing acute GI bleed 3. Acute blood loss anemia 4. Diabetes type 2 5. Mixed hyperlipidemia 6. Status post aortic valve replacement with bioprosthetic valve 7. Coronary artery disease status post coronary artery bypass surgery 8. Diverticular disease of the colon Hospital Course: Patient presented as above. He had slowly drifting down hemoglobin and hematocrit without evidence of large volume bleeding. It did persist with dark to red colored material coming out through the rectum into the toilet. This continued despite his bowel prep for his colonoscopy He underwent upper endoscopy which showed evidence of mild duodenitis as per Dr. Nicole. No evidence of gastric or other ulceration causing bleeding Colonoscopy was attempted but his colon was still fairly full of black material likely from his upper GI source of bleeding Patient remained hemodynamically stable throughout the course of his hospitalization Given the above findings was felt as though patient would be okay for discharge home to continue on b.i.d. proton pump inhibitor for his duodenitis, off his aspirin, and careful outpatient follow-up Exam Vital Signs (past 8 hours): - 06/09/23 12:00 06/09/23 15:00 06/09/23 15:45 Temperature 98.2 F 98.2 F 97.7 F Pulse Rate 64 79 62 Respiratory Rate 20 18 12 Blood Pressure 133/56 L 161/63 H 114/44 L Pulse Oximetry 97 95 95 Oxygen Delivery Method Room Air Room Air Oxygen Flow Rate 0 06/09/23 15:50 06/09/23 15:55 06/09/23 16:04 Temperature Pulse Rate 65 61 64 Respiratory Rate 14 18 20 Blood Pressure 125/49 L 122/46 L 125/45 L Pulse Oximetry 96 96 97 Oxygen Delivery Method Room Air Room Air Room Air Oxygen Flow Rate Oxygen Delivery Method Room Air Oxygen Flow Rate 0 Objective Labs 06/09/23 04:34 06/09/23 04:34 Labs: Laboratory Results - last 24 hr 06/09/23 04:34 WBC 9.0 RBC 2.88 L Hgb 9.2 L Hct 27.2 L MCV 94.6 MCH 31.8 MCHC 33.6 RDW 13.3 Plt Count 172 Neut % (Auto) 69.6 Lymph % (Auto) 16.1 L [place] % (Auto) 7.3 Eos % (Auto) 6.6 H Baso % (Auto) 0.4 Neut # (Auto) 6300 Lymph # (Auto) 1400 [place] # (Auto) 700 Eos # (Auto) 600 H Baso # (Auto) 0 Sodium 135 L Potassium 4.0 Chloride 103 Carbon Dioxide 29 BUN 18 Creatinine 0.83 Estimated GFR > 60 BUN/Creatinine Ratio 21.7 Glucose 145 H Calcium 8.0 L PFSH Medical History Diverticular disease of colon History of small bowel obstruction (02/05/15) COVID-19 Mixed hyperlipidemia Hx of small bowel obstruction (01/2015) History of GI bleed (08/2011) Aortic valve stenosis Diabetes Coronary artery disease Surgical History Status post colonoscopy (~07/2010) History of aortic valve replacement with bioprosthetic valve (~11/2010) Hx of hernia repair (Unknown) 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) Social History household members: family and children Smoking Status: Former smoker alcohol intake: current Discharge Assessment & Plan Assessment and Plan Plan of Treatment: Okay to discharge home off aspirin on proton pump inhibitor b.i.d. with close outpatient follow-up. Follow-up appointment in approximately 2 weeks Discharge Plan Discharge Plan Patient Disposition: Home Discharge orders & Medications Prescriptions: New omeprazole 40 mg capsule,delayed release(DR/EC) 40 mg PO BID Qty: 60 3RF Continued (DME) blood-glucose meter Misc See Rx Instructions .Route Qty: 1 0RF Rx Instructions: Use to check BS 1x daily. metformin 500 mg tablet 500 mg PO BIDCC Qty: 180 3RF simvastatin 20 mg tablet 20 mg PO HS Qty: 90 3RF (DME) Accu-Chek Guide test strips Strip See Rx Instructions .Route Qty: 100 6RF Rx Instructions: Use to check BS 1-2x daily or as directed by PCP tamsulosin [Flomax] 0.4 mg capsule 0.4 mg PO BID Qty: 180 3RF (DME) lancets [Accu-Chek Softclix Lancets] Misc See Rx Instructions .Route Qty: 100 3RF Rx Instructions: Use to check BS 1x daily diphenhydramine HCl [Benadryl] 25 mg capsule See Rx Instructions PO DAILY Rx Instructions: 2 tabs in AM. 1 tab in PM orally daily; Discontinued aspirin 81 MG tablet,delayed release (DR/EC) 81 mg PO BID Qty: 0 Follow up/Referrals: Demetri Ca MD [Primary Care Provider] - 2 Weeks Discharge Health Status Multidrug resistant organism: No MDRO Diet/Activity/Treatments Diet: Diet as Tolerated and Carb-consistent/Diabetic Visit Report/Discharge Packet Stand Alone Forms: Patient Portal/API Discharge Data Primary Care Provider: Demetri Ca Attending Provider: Demetri Ca Admit Date/Time: 06/08/23 03:20
--- NOTE | 2023-06-09 18:47 | PC.NURSE ---
Patient A&OX4, RA VSS returned from PACU at 1616. He is cleared for a general diet. MD Ca at bedside this evening, reviews results of the procedure with the patient and clears hime for discharge home today. Patient verbalizes understanding of new medication changes as well as the need to follow up with MD Ca in 2 weeks. He arranges transportation with his son home this evening at 6 pm. He is escorted via w/ch with all of his belongings to private vehicle with his son this evening at 6 pm.
== END 2023-06-09 18:00 | disposition home or self-care (01) ==
LOC: ED 23:22 → AC 06-08 03:22
PROVIDERS: Surgery; Admitting Provider Family Medicine; Emergency Provider Emergency Medicine; Family Provider Internal Medicine; PCP Internal Medicine; Referring Provider Emergency Medicine; Visit Provider Internal Medicine
PROC: 0DJD8ZZ Inspection of Lower Intestinal Tract, Via Natural or Artificial Opening Endoscopic (ICD-10-PCS; CPT 45378; principal; 2023-06-09 14:45)
PROC: 0DJ08ZZ Inspection of Upper Intestinal Tract, Via Natural or Artificial Opening Endoscopic (ICD-10-PCS; CPT 43235; 2023-06-09 14:45)
DX: K92.1 Melena (principal); E11.9 Type 2 diabetes mellitus without complications; Z79.84 Long term (current) use of oral hypoglycemic drugs; I25.10 Atherosclerotic heart disease of native coronary artery without angina pectoris; E78.5 Hyperlipidemia, unspecified; K29.80 Duodenitis without bleeding; K44.9 Diaphragmatic hernia without obstruction or gangrene; Z53.09 Procedure and treatment not carried out because of other contraindication
CPT/HCPCS: 43239; 45378; 36415; 74177; 80048; 80053; 82272; 82962; 83735; 85014; 85018; 85025; 86850; 86900; 86901; 87507; 93005; 96361; 96374; 96376; 99223; 99238; 99284; G0378; C9113; J1815; J2704; J7050; Q9967

== ENCOUNTER → 2023-06-20 11:01 | Outpatient (CLI) | payer MEDICARE, SELFPAY ==
[2023-06-08 04:22] VITALS: BMI 24.9
[2023-06-20 12:01] LABS: Add Manual Diff / Slide Review NO; Basophils Absolute Auto 0 /uL (0-100); Basophils Percent Auto 0.5 % (0-2); Eosinophils Absolute Auto 400 /uL (0-450); Eosinophils Percent Auto 4.8 % (2-4); Hematocrit 28.8 % (41-53); Hemoglobin 9.5 g/dL (13.5-17.5); Lymphocytes Absolute Auto 1200 /uL (1100-4500); Lymphocytes Percent Auto 16.3 % (25-40); Mean Corpuscular HGB Conc 32.9 % (30-36); Mean Corpuscular Hemoglobin 30.9 PG (26-34); Mean Corpuscular Volume 93.9 fL (80-100); Monocytes Absolute Auto 600 /uL (0-900); Monocytes Percent Auto 7.5 % (3-14); Neutrophils Absolute Auto 5500 /uL (1500-7000); Neutrophils Percent Auto 70.9 % (50-75); Platelet Count 309 X10^3/uL (150-400); Red Blood Cell Count 3.07 X10^6/uL (4.5-5.9); Red Cell Distribution Width 13.7 % (11.6-14.8); White Blood Cell Count 7.7 X10^3/uL (4.5-11.0)
[2023-06-20 12:55] LABS: BUN Creatinine Ratio 15.1 (6-22); Blood Urea Nitrogen 16 mg/dL (9-20); Calcium 9.7 mg/dL (8.4-10.2); Carbon Dioxide 30 mmol/L (22-32); Chloride 103 mmol/L (98-107); Estimated Glomerular Filt Rate > 60 mL/min (>60); Glucose 196 mg/dL (80-110); HEMOLYSIS < 15 (0-50); Potassium 4.5 mmol/L (3.4-5.1); Sodium 137 mmol/L (137-145)
== END ==
PROVIDERS: Family Provider Internal Medicine; PCP Internal Medicine; Referring Provider Internal Medicine; Visit Provider Internal Medicine
DX: K92.2 Gastrointestinal hemorrhage, unspecified (principal)
CPT/HCPCS: 36415; 80048; 85025

== ENCOUNTER → 2023-08-14 16:39 | Outpatient (CLI) | payer MEDICARE, SELFPAY ==
[2023-06-08 04:22] VITALS: BMI 24.9
[2023-08-14 17:25] LABS: Hemoglobin A1C% w Est Avg Glu 8.3 % (4.0-6.0)
[2023-08-14 17:46] LABS: Alanine Aminotransferase 12 IU/L (<50); Albumin 3.9 g/dL (3.5-5.0); Albumin Globulin Ratio 1.3 (1.0-2.8); Alkaline Phosphatase 72 U/L (38-126); Aspartate Aminotransferase 16 IU/L (17-59); BUN Creatinine Ratio 18.1 (6-22); Bilirubin Total 0.3 mg/dL (0.2-1.3); Blood Urea Nitrogen 19 mg/dL (9-20); Calcium 9.2 mg/dL (8.4-10.2); Carbon Dioxide 29 mmol/L (22-32); Chloride 105 mmol/L (98-107); Estimated Glomerular Filt Rate > 60 mL/min (>60); Glucose 169 mg/dL (80-110); HEMOLYSIS < 15 (0-50); Sodium 138 mmol/L (137-145); Total Protein 6.9 g/dL (6.3-8.2)
== END ==
PROVIDERS: Family Provider Internal Medicine; PCP Internal Medicine; Referring Provider Internal Medicine; Visit Provider Internal Medicine
DX: E11.9 Type 2 diabetes mellitus without complications (principal); E78.2 Mixed hyperlipidemia
CPT/HCPCS: 36415; 80053; 83036

== ENCOUNTER → 2023-11-21 07:06 | Outpatient (CLI) | payer MEDICARE, SELFPAY ==
[2023-06-08 04:22] VITALS: BMI 24.9
[2023-11-21 08:48] LABS: Add Manual Diff / Slide Review NO; Basophils Absolute Auto 0 /uL (0-100); Basophils Percent Auto 0.4 % (0-2); Eosinophils Absolute Auto 200 /uL (0-450); Hematocrit 30.5 % (41-53); Hemoglobin 9.4 g/dL (13.5-17.5); Lymphocytes Absolute Auto 2000 /uL (1100-4500); Lymphocytes Percent Auto 24.7 % (25-40); Mean Corpuscular HGB Conc 30.9 % (30-36); Mean Corpuscular Hemoglobin 23.2 PG (26-34); Monocytes Absolute Auto 700 /uL (0-900); Monocytes Percent Auto 8.2 % (3-14); Neutrophils Absolute Auto 5100 /uL (1500-7000); Neutrophils Percent Auto 63.7 % (50-75); Platelet Count 282 X10^3/uL (150-400); Red Blood Cell Count 4.07 X10^6/uL (4.5-5.9); Red Cell Distribution Width 19.9 % (11.6-14.8)
[2023-11-21 09:11] LABS: BUN Creatinine Ratio 14.3 (6-22); Blood Urea Nitrogen 16 mg/dL (9-20); Carbon Dioxide 28 mmol/L (22-32); Chloride 106 mmol/L (98-107); Estimated Glomerular Filt Rate > 60 mL/min (>60); Glucose 139 mg/dL (80-110); HEMOLYSIS < 15 (0-50); Potassium 4.6 mmol/L (3.4-5.1); Sodium 140 mmol/L (137-145)
[2023-11-21 14:40] LABS: HEMOLYSIS < 15 (0-50); Iron 34 ug/dL (49-181)
[2023-11-21 14:51] LABS: Percent Iron Saturation 9 % (20-50); Total Iron Binding Capacity 382 ug/dL (261-462); Transferrin 299 mg/dL (206-381)
== END ==
PROVIDERS: Family Provider Internal Medicine; PCP Internal Medicine; Referring Provider Internal Medicine; Visit Provider Internal Medicine
DX: E11.9 Type 2 diabetes mellitus without complications (principal); E78.2 Mixed hyperlipidemia; K92.2 Gastrointestinal hemorrhage, unspecified; D50.9 Iron deficiency anemia, unspecified
CPT/HCPCS: 36415; 80048; 83036; 83540; 83550; 85025

== ENCOUNTER → 2024-02-20 13:28 | Outpatient (CLI) | payer MEDICARE, SELFPAY ==
[2023-06-08 04:22] VITALS: BMI 24.9
[2024-02-20 14:34] LABS: Add Manual Diff / Slide Review NO; Basophils Absolute Auto 0 /uL (0-100); Basophils Percent Auto 0.5 % (0-2); Eosinophils Absolute Auto 300 /uL (0-450); Eosinophils Percent Auto 3.4 % (2-4); Hematocrit 40.5 % (41-53); Hemoglobin 12.6 g/dL (13.5-17.5); Lymphocytes Absolute Auto 2100 /uL (1100-4500); Lymphocytes Percent Auto 24.5 % (25-40); Mean Corpuscular HGB Conc 31.2 % (30-36); Mean Corpuscular Hemoglobin 26.5 PG (26-34); Mean Corpuscular Volume 85.1 fL (80-100); Monocytes Absolute Auto 700 /uL (0-900); Monocytes Percent Auto 8.9 % (3-14); Neutrophils Absolute Auto 5300 /uL (1500-7000); Neutrophils Percent Auto 62.7 % (50-75); Platelet Count 232 X10^3/uL (150-400); Red Blood Cell Count 4.76 X10^6/uL (4.5-5.9); Red Cell Distribution Width 21.5 % (11.6-14.8); White Blood Cell Count 8.4 X10^3/uL (4.5-11.0)
[2024-02-20 14:41] LABS: HEMOLYSIS < 15 (0-50); Iron 64 ug/dL (49-181)
[2024-02-20 14:48] LABS: Alanine Aminotransferase 12 IU/L (<50); Albumin 4.3 g/dL (3.5-5.0); Albumin Globulin Ratio 1.5 (1.0-2.8); Alkaline Phosphatase 75 U/L (38-126); Anisocytosis 1+; Aspartate Aminotransferase 18 IU/L (17-59); BUN Creatinine Ratio 15.8 (6-22); Bilirubin Total 0.4 mg/dL (0.2-1.3); Blood Urea Nitrogen 18 mg/dL (9-20); Calcium 9.2 mg/dL (8.4-10.2); Carbon Dioxide 26 mmol/L (22-32); Chloride 103 mmol/L (98-107); Estimated Glomerular Filt Rate > 60 mL/min (>60); Globulin 2.8 g/dL (1.7-4.1); Glucose 185 mg/dL (80-110); HEMOLYSIS < 15 (0-50); Poikilocytosis 1+; Potassium 4.3 mmol/L (3.4-5.1); Sodium 137 mmol/L (137-145); Total Protein 7.1 g/dL (6.3-8.2)
[2024-02-20 14:54] LABS: Percent Iron Saturation 17 % (20-50); Total Iron Binding Capacity 371 ug/dL (261-462); Transferrin 298 mg/dL (206-381)
[2024-02-20 15:50] LABS: Hemoglobin A1C% w Est Avg Glu 7.5 % (4.0-6.0)
== END ==
LOC: LAB 13:29
PROVIDERS: Family Provider Internal Medicine; PCP Internal Medicine; Referring Provider Internal Medicine; Visit Provider Internal Medicine
DX: E11.9 Type 2 diabetes mellitus without complications (principal); E78.2 Mixed hyperlipidemia; D50.9 Iron deficiency anemia, unspecified
CPT/HCPCS: 36415; 80053; 83036; 83540; 83550; 85025

== ENCOUNTER → 2024-12-17 15:45 | Outpatient (CLI) | payer MEDICARE, SELFPAY ==
[2023-06-08 04:22] VITALS: BMI 24.9
[2024-12-17 16:12] LABS: Add Manual Diff / Slide Review NO; Hematocrit 38.7 % (41-53); Hemoglobin 12.8 g/dL (13.5-17.5); Lymphocytes Absolute Auto 1700 /uL (1100-4500); Mean Corpuscular HGB Conc 33.1 % (30-36); Mean Corpuscular Hemoglobin 31.1 PG (26-34); Mean Corpuscular Volume 93.7 fL (80-100); Platelet Count 193 X10^3/uL (150-400)
[2024-12-17 16:27] LABS: Hemoglobin A1C% w Est Avg Glu 9.3 % (4.0-6.0)
[2024-12-17 16:29] LABS: HEMOLYSIS 29 (0-50); Iron 50 ug/dL (49-181)
[2024-12-17 16:31] LABS: Alanine Aminotransferase 10 IU/L (<50); Albumin 4.1 g/dL (3.5-5.0); Albumin Globulin Ratio 1.6 (1.0-2.8); Alkaline Phosphatase 55 U/L (38-126); Blood Urea Nitrogen 17 mg/dL (9-20); Calcium 9.2 mg/dL (8.4-10.2); Carbon Dioxide 24 mmol/L (22-32); Chloride 104 mmol/L (98-107); Estimated Glomerular Filt Rate > 60 mL/min (>60); Globulin 2.6 g/dL (1.7-4.1); Glucose 193 mg/dL (70-99); HEMOLYSIS 67 (0-50); Potassium 4.9 mmol/L (3.4-5.1); Sodium 136 mmol/L (137-145); Total Protein 6.7 g/dL (6.3-8.2)
[2024-12-17 16:41] LABS: Percent Iron Saturation 15 % (20-50); Total Iron Binding Capacity 335 ug/dL (261-462); Transferrin 274 mg/dL (206-381)
== END ==
PROVIDERS: Family Provider Internal Medicine; PCP Internal Medicine; Referring Provider Internal Medicine; Visit Provider Internal Medicine
DX: E11.9 Type 2 diabetes mellitus without complications (principal); E78.2 Mixed hyperlipidemia; D50.9 Iron deficiency anemia, unspecified
CPT/HCPCS: 36415; 80053; 83036; 83540; 83550; 85025

== ENCOUNTER → 2025-02-22 11:22 | Outpatient (CLI) | payer MEDICARE, SELFPAY ==
[2023-06-08 04:22] VITALS: BMI 24.9
[2025-02-22 12:07] LABS: COVID-19 CEPHEID 4-PLEX PCR Negative (Negative); Influenza A - CEPHEID Flu A NEGATIVE (NEGATIVE); Influenza B - CEPHEID Flu B NEGATIVE (NEGATIVE)
== END ==
PROVIDERS: Family Provider Internal Medicine; PCP Internal Medicine; Visit Provider Nurse Practitioner Family
DX: R05.1 Acute cough (principal)
CPT/HCPCS: 87637

== ENCOUNTER → 2025-02-22 11:32 | Outpatient (CLI) | payer MEDICARE, SELFPAY ==
[2023-06-08 04:22] VITALS: BMI 24.9
--- NOTE | 2025-02-22 11:34 | DI.RAD.S_ITS ---
PROCEDURE: XR CHEST 2V INDICATIONS: Cough TECHNIQUE: 2 views of the chest were acquired. COMPARISON: [facility], , XR CHEST FOR PICC 1V, 04/06/2021, 23:15. FINDINGS: Surgical changes and devices: Median sternotomy, post CABG changes, and wireless cardiac monitoring device projecting over the mediastinum. Lungs and pleura: Asymmetric left hemidiaphragm elevation. Diffuse coarsening of the interstitial markings in the perihilar region bilaterally. No focal consolidations, effusion, or pneumothorax. Mediastinum: Stable cardiomediastinal contour. Slight prominence of central vasculature. Bones and chest wall: No suspicious bony abnormalities. Soft tissues appear unremarkable. IMPRESSION: Increased central vascular prominence and bilateral perihilar interstitial thickening. This can be seen in CHF and early interstitial edema or bronchitis. Correlate clinically. Dictated by: Liliya Dominguez M.D. on 02/22/2025 at 21:26 Approved by: Liliya Dominguez M.D. on 02/22/2025 at 21:30
== END ==
PROVIDERS: Family Provider Internal Medicine; PCP Internal Medicine; Referring Provider Nurse Practitioner Family; Visit Provider Nurse Practitioner Family
DX: R05.1 Acute cough (principal); R93.1 Abnormal findings on diagnostic imaging of heart and coronary circulation
CPT/HCPCS: 71046; 87637

== ENCOUNTER → 2025-03-18 07:30 | Outpatient (CLI) | payer MEDICARE, SELFPAY ==
[2023-06-08 04:22] VITALS: BMI 24.9
[2025-03-18 08:45] LABS: Blood Urea Nitrogen 19 mg/dL (9-20); Calcium 9.2 mg/dL (8.4-10.2); Carbon Dioxide 30 mmol/L (22-32); Chloride 102 mmol/L (98-107); Glucose 150 mg/dL (70-99); HEMOLYSIS < 15 (0-50); Potassium 4.2 mmol/L (3.4-5.1); Sodium 137 mmol/L (137-145)
[2025-03-18 08:55] LABS: Estimated Glomerular Filt Rate 29 mL/min (>60)
[2025-03-18 09:47] LABS: Hemoglobin A1C% w Est Avg Glu 7.7 % (4.0-6.0)
== END ==
PROVIDERS: Family Provider Internal Medicine; PCP Internal Medicine; Referring Provider Internal Medicine; Visit Provider Internal Medicine
DX: E11.9 Type 2 diabetes mellitus without complications (principal); E78.2 Mixed hyperlipidemia
CPT/HCPCS: 36415; 80048; 83036

== ENCOUNTER → 2025-04-15 08:59 | Outpatient (CLI) | payer MEDICARE, SELFPAY ==
[2023-06-08 04:22] VITALS: BMI 24.9
[2025-04-15 10:36] LABS: Blood Urea Nitrogen 19 mg/dL (9-20); Calcium 9.7 mg/dL (8.4-10.2); Carbon Dioxide 32 mmol/L (22-32); Chloride 103 mmol/L (98-107); Estimated Glomerular Filt Rate 44 mL/min (>60); Glucose 82 mg/dL (70-99); HEMOLYSIS < 15 (0-50); Potassium 4.6 mmol/L (3.4-5.1); Sodium 141 mmol/L (137-145)
[2025-04-15 11:14] LABS: Microalbumi Creatinin Ratio Ur 13.0 ug/mg CR (<30)
== END ==
PROVIDERS: PCP Internal Medicine; Referring Provider Internal Medicine; Visit Provider Internal Medicine
DX: E11.9 Type 2 diabetes mellitus without complications (principal); N18.32 Chronic kidney disease, stage 3b
CPT/HCPCS: 36415; 80048; 82043; 82570